=== PATIENT | male | born 1985 | race American Indian/Alaskan Native ===

== ENCOUNTER 2021-03-17 13:28 | Inpatient (IN) | payer SELFPAY ==
[2021-03-17] MEDS ORDERED: ONDANSETRON 4 MG/2 ML INJ IV ONE (14:02)
[2021-03-17] MEDS ORDERED: SODIUM CHLORIDE 0.9% 1000 ML 1,000 ML IV ONE (14:02)
[2021-03-17] MEDS ORDERED: fentaNYL 100 MCG/2 ML INJ IV ONE (14:02)
--- NOTE | 2021-03-17 14:05 | Emergency Department Report ---
ED Abdominal Pain HPI - General Chief Complaint: Abdominal Pain Stated Complaint: ABDOMINAL PAIN Time Seen by Provider: 03/17/21 13:57 Source: patient Mode of arrival: Wheelchair Limitations: No Limitations - History of Present Illness Initial Comments: Patient presents with generalized abdominal pain over the last 2 to 3 days. He has had nausea and vomiting associate with this. There is also been diarrhea. He feels bloated and distended. He states that he feels like his "abdomen is going to explode." He has had this happen once before. He was told it was all related to blockage and gas buildup. He did not require surgery. He is here for evaluation and treatment this time. There has been no sick contact. He has had no travel out of the country. He has not been taking antibiotics. There is no history of trauma. Pain is sharp and stabbing and cramping in nature. It is generalized and diffuse. It does not radiate or migrate. He states it pain is worsened by movement and by palpation. - Related Data Allergies Allergy/AdvReac Type Severity Reaction Status Date / Time No Known Allergies Allergy Unverified 03/17/21 13:47 ED Review of Systems ROS: Stated complaint: ABDOMINAL PAIN Other details as noted in HPI Comment: All other systems reviewed and negative Constitutional: denies: fever Eyes: denies: eye pain ENT: denies: throat pain Respiratory: denies: cough Cardiovascular: denies: chest pain Endocrine: denies: unexplained weight loss Gastrointestinal: as per HPI Genitourinary: denies: dysuria Musculoskeletal: denies: back pain Skin: denies: rash Neurological: denies: headache Hematological/Lymphatic: denies: easy bruising ED Past Medical Hx - Past Medical History Previous Medical History?: No - Surgical History Past Surgical History?: No - Family History Family history: no significant - Social History Smoking Status: Never Smoker ED Physical Exam - General Limitations: No Limitations, Other (Pulse ox noted and normal) General appearance: alert, in distress (Moderate discomfort) - Head Head exam: Present: atraumatic, normocephalic. Absent: normal inspection - Eye Eye exam: Present: normal appearance, EOMI. Absent: scleral icterus - ENT ENT exam: Present: normal exam, normal orophraynx, normal external ear exam - Neck Neck exam: Present: normal inspection. Absent: meningismus - Respiratory Respiratory exam: Present: normal lung sounds bilaterally. Absent: respiratory distress - Cardiovascular Cardiovascular Exam: Present: regular rate, normal rhythm - GI/Abdominal GI/Abdominal exam: Present: soft, distended (Moderate), tenderness (Diffuse), other (No tympany). Absent: guarding, rebound - Extremities Exam Extremities exam: Present: normal capillary refill. Absent: pedal edema - Back Exam Back exam: Absent: CVA tenderness (R), CVA tenderness (L) - Neurological Exam Neurological exam: Present: alert, oriented X3, CN II-XII intact, reflexes normal. Absent: motor sensory deficit - Psychiatric Psychiatric exam: Present: normal affect, normal mood - Skin Skin exam: Present: warm, dry ED Course Vital Signs 03/17/21 15:37 Respiratory 24 Rate O2 Sat by Pulse 96 Oximetry - Reevaluation(s) Reevaluation #1: 03/17/21 14:05 IV labs ordered. X-rays were ordered. Old records reviewed. Reevaluation #2: 03/17/21 14:54 Plain films are noted. CT was ordered. Reevaluation #3: 03/17/21 17:15 CT had been noted and discussed with Dr. Chandler and Dr. Sullivan. Patient was updated. ED Medical Decision Making - Lab Data Result diagrams: 03/17/21 14:09 03/17/21 14:09 Rhythm strip: Normal sinus rhythm without ectopy per monitor observe 10 seconds. - Medical Decision Making Patient presents with abdominal pain and distention. He had plain films suggestive of obstruction. CT confirmed obstruction secondary to what appears to be some sort of abscess. Whether this is been a represents some sort of terminal ileitis, inflammatory bowel disease, or appendicitis is not known. Regardless, he will be admitted. Surgery has been consulted. He is hemodynamically stable at the time. He does have leukocytosis in the setting of infection and antibiotics have been ordered. I believe that this is all related to his abscess. There was no free air or perforation noted. No evidence of AAA. Critical Care Time: No Critical care attestation.: If time is entered above; I have spent that time in minutes in the direct care of this critically ill patient, excluding procedure time. ED Disposition Clinical Impression: SBO (small bowel obstruction) Leukocytosis Qualifiers: Leukocytosis type: unspecified Qualified Code(s): D72.829 - Elevated white blood cell count, unspecified Disposition: 09 ADMITTED INPATIENT Is pt being admited?: Yes Condition: Stable
[2021-03-17 14:35] LABS: Hematocrit 42.8 % (35.5-45.6); Hemoglobin 14.4 gm/dl (11.8-15.2); Mean Corpuscular HGB Conc 34 % (32-34); Mean Corpuscular Volume 98 fl (84-94); Platelet Count 350 K/mm3 (140-440); Red Blood Count 4.39 M/mm3 (3.65-5.03); Red Cell Distribution Width 12.5 % (13.2-15.2)
--- NOTE | 2021-03-17 14:43 | XRay Report ---
ABDOMEN 4 VIEW(S) INDICATION / CLINICAL INFORMATION: pain, distention x 1-14 days. COMPARISON: None available. FINDINGS: TUBES / LINES: None. BOWEL GAS PATTERN: Abnormal dilated gas-filled bowel loops diffusely with a few air-fluid levels. FREE AIR / EXTRALUMINAL GAS: None seen. ADDITIONAL FINDINGS: Clear lungs with normal heart size. IMPRESSION: 1. Findings most suggestive of a distal small bowel obstruction. Signer Name: Krystian Velásquez MD Signed: 03/17/2021 2:39 PM Workstation Name: [email or web address]
[2021-03-17 14:53] LABS: BUN/Creatinine Ratio 15; Blood Urea Nitrogen 15 mg/dL (9-20); Calcium 9.6 mg/dL (8.4-10.2); Hemolysis Index 33
[2021-03-17] MEDS ORDERED: MORPHINE 4 MG/1 ML INJ IV ONE (15:53)
--- NOTE | 2021-03-17 16:01 | Cat Scan Report ---
CT ABDOMEN AND PELVIS WITH CONTRAST INDICATION / CLINICAL INFORMATION: sbo. TECHNIQUE: Axial CT images were obtained through the abdomen and pelvis after IV contrast. All CT sc ans at this location are performed using CT dose reduction for ALARA by means of automated exposure c ontrol. COMPARISON: None available. FINDINGS: LOWER CHEST: There is minimal subsegmental atelectasis in the lung bases. LIVER: No significant abnormality. GALLBLADDER: Gallbladder is contracted but otherwise unremarkable. BILE DUCTS: No significant abnormality. PANCREAS: No significant abnormality. SPLEEN: No significant abnormality. ADRENALS: No significant abnormality. RIGHT KIDNEY / URETER: No significant abnormality. LEFT KIDNEY / URETER: No significant abnormality. STOMACH / SMALL BOWEL: There is a high-grade mechanical small bowel obstruction at the level the dist al ileum. The wall of the distal ileum is thickened. COLON: No significant abnormality. APPENDIX: Not visualized. PERITONEUM: No free fluid. No free air. There is a fluid collection with air-fluid level in the pelvi s anterior to the rectum and posterior to the urinary bladder measures approximately 7 cm in diameter . LYMPH NODES: No significant adenopathy. AORTA / ARTERIES: No significant abnormality. IVC / VEINS: No significant abnormality. URINARY BLADDER: No significant abnormality. REPRODUCTIVE ORGANS: No significant abnormality. ADDITIONAL FINDINGS: None. SKELETAL SYSTEM: No acute abnormality IMPRESSION: 1. There is a high-grade mechanical small bowel obstruction at the level the distal ileum. There is a n inflammatory process in the pelvis with some wall thickening in the distal ileum. There is an absce ss anterior to the rectum and posterior to the urinary bladder within the pelvis which measures appro ximately 7 cm. The source of this inflammatory process in the pelvis could be small bowel abnormality such as perforation related to inflammatory bowel disease. The possibility that this is caused by ap pendicitis is considered. I am unable to identify the appendix on this study. The possibility of Meck el's diverticulitis is also considered in the differential diagnosis. Signer Name: Miguel Cancino MD Signed: 03/17/2021 3:56 PM Workstation Name: [id number]
[2021-03-17 16:05] LABS: Alanine Aminotransferase 32 units/L (7-56); Albumin 3.9 g/dL (3.9-5)
[2021-03-17] MEDS ORDERED: LIDOCAINE JELLY (2%) 5 ML TOPICAL TP NR (16:31)
[2021-03-17] MEDS ORDERED: PIPERACIL/TAZOBACTA 4.5/NS 100 4.5 GM/100 ML VIAL IV ONE (16:31)
[2021-03-17] MEDS ORDERED: BENZOCAINE 20% TOP SPRAY 0.5 ML UNIT DOSE MM NR (17:00)
--- NOTE | 2021-03-17 18:50 | Consultation ---
History of Present Illness Consult date: 03/17/21 Reason for consult: abdominal pain - History of present illness History of present illness: 35 yo male with 3 days of diffuse abdominal pain, nausea and vomiting. No h/o prior surgery or hernia. Medications and Allergies Allergies Allergy/AdvReac Type Severity Reaction Status Date / Time No Known Allergies Allergy Unverified 03/17/21 13:47 Home Medications Medication Instructions Recorded Confirmed Last Taken Type No Known Home Medications [No 03/18/21 03/18/21 Unknown History Reported Home Medications] Active Meds: Active Medications Benzocaine (Benzocaine 20% Top [place] 0.5 Ml Unit Dose) 1 spray MM PREOP NR Stop: 03/17/21 20:00 Lidocaine HCl (Lidocaine Jelly (2%) 5 Ml Topical) 1 applic TP ONCE NR Stop: 03/17/21 20:00 Review of Systems All systems: negative (none.) Exam Vital Signs Resp Pulse Ox 24 96 03/17/21 15:37 03/17/21 15:37 - General physical appearance Positive: well developed, well nourished, no distress - Eyes Positive: PERRL, normal occular movement - ENT Positive: normal pinna, normal nares, normal mucosa, no hearing loss, no congestion - Neck Positive: no masses, no bruits, trachea midline, no venous distension - Respiratory Positive: normal expansion, normal respiratory effort, clear to auscultation - Cardiovascular Rhythm: regular Heart Sounds: Present: S1 & S2. Absent: rub, click - Extremities Extremities: no ischemia, pulses symmetrical, No edema - Breasts Breasts: normal, no mass, no skin changes - Abdomen Abdomen: Present: tender, bowel sounds hypoactive, distended. Absent: masses (Mild tenderness noted diffusely.), rebound, guarding, rigid, wound, surgical scars Hernia: none - Genitourinary Male Genitourinary: normal Female Genitourinary: normal - Integumentary no rash, no growths, no abnormal pigmentation - Neurologic Neurologic: alert and oriented to time, place and person, motor strength and sensation are grossly intact - Musculoskeletal normal gait, normal posture - Psychiatric Psychiatric: appropriate mood/affect, intact judgment & insight Results - Labs 03/18/21 04:45 03/18/21 04:45 Abnormal lab results 03/17/21 03/17/21 Range/Units 14:09 14:09 WBC 17.9 H (4.5-11.0) K/mm3 MCV 98 H (84-94) fl MCH 33 H (28-32) pg RDW 12.5 L (13.2-15.2) % Sodium 128 L (137-145) mmol/L Chloride 81.8 L (98-107) mmol/L Carbon Dioxide 34 H (22-30) mmol/L Glucose 119 H (75-100) mg/dL Lipase 262 H (13-60) units/L Diabetes panel 03/17/21 Range/Units 14:09 Sodium 128 L (137-145) mmol/L Potassium 3.6 (3.6-5.0) mmol/L Chloride 81.8 L (98-107) mmol/L Carbon Dioxide 34 H (22-30) mmol/L BUN 15 (9-20) mg/dL Creatinine 1.0 (0.8-1.3) mg/dL Glucose 119 H (75-100) mg/dL Calcium 9.6 (8.4-10.2) mg/dL AST 36 (5-40) units/L ALT 32 (7-56) units/L Alkaline Phosphatase 93 (35-129) units/L Total Protein 8.1 (6.3-8.2) g/dL Albumin 3.9 (3.9-5) g/dL Calcium panel 03/17/21 Range/Units 14:09 Calcium 9.6 (8.4-10.2) mg/dL Albumin 3.9 (3.9-5) g/dL Pituitary panel 03/17/21 Range/Units 14:09 Sodium 128 L (137-145) mmol/L Potassium 3.6 (3.6-5.0) mmol/L Chloride 81.8 L (98-107) mmol/L Carbon Dioxide 34 H (22-30) mmol/L BUN 15 (9-20) mg/dL Creatinine 1.0 (0.8-1.3) mg/dL Glucose 119 H (75-100) mg/dL Calcium 9.6 (8.4-10.2) mg/dL Adrenal panel 03/17/21 Range/Units 14:09 Sodium 128 L (137-145) mmol/L Potassium 3.6 (3.6-5.0) mmol/L Chloride 81.8 L (98-107) mmol/L Carbon Dioxide 34 H (22-30) mmol/L BUN 15 (9-20) mg/dL Creatinine 1.0 (0.8-1.3) mg/dL Glucose 119 H (75-100) mg/dL Calcium 9.6 (8.4-10.2) mg/dL Total Bilirubin 0.50 (0.1-1.2) mg/dL AST 36 (5-40) units/L ALT 32 (7-56) units/L Alkaline Phosphatase 93 (35-129) units/L Total Protein 8.1 (6.3-8.2) g/dL Albumin 3.9 (3.9-5) g/dL - Imaging CT scan - abdomen: report reviewed CT scan - pelvis: report reviewed Assessment and Plan - Patient Problems (1) SBO (small bowel obstruction) Current Visit: Yes Status: Acute Plan to address problem: 1) IV antibiotics 2) NG to LIS 3) NPO 4) IVF 5) Exploratory laparotomy, drainage of pelvic abscess and indicated surgery tomorrow.
--- NOTE | 2021-03-17 18:55 | XRay Report ---
Abdomen single view INDICATION: Abdominal pain IMPRESSION: The esophagogastric tube terminates within the upper stomach region. Multiple dilated loo ps of small bowel identified throughout the abdomen concerning for high-grade distal small bowel obst ruction. Signer Name: Ortiz Moncada MD Signed: 03/17/2021 6:51 PM Workstation Name: [email or web address]
[2021-03-17] MEDS: HYDROmorphone 1 MG/1 ML INJ IV PRN ×2 (19:36→21:31)
[2021-03-17] MEDS ORDERED: LIDOCAINE (4%) 40 MG/ML TOPICAL SOLN 50 ML BOTTLE TP ONE (19:46)
[2021-03-17] MEDS ORDERED: ONDANSETRON 4 MG/2 ML INJ IV PRN (22:41)
[2021-03-17] MEDS ORDERED: ACETAMINOPHEN 650 MG RECT SUPP PR PRN (22:41)
[2021-03-18] MEDS: HYDROmorphone 1 MG/1 ML INJ IV PRN ×7 (00:03→18:24)
[2021-03-18] MEDS: FAMOTIDINE 20 MG/2 ML INJ IV SCH ×2 (00:05→14:32)
[2021-03-18 05:12] LABS: Basophils % (Auto) 0.1 % (0.0-1.8); Eosinophils # (Auto) 0.2 K/mm3 (0.0-0.4); Eosinophils % (Auto) 0.9 % (0.0-4.3); Hematocrit 41.1 % (35.5-45.6); Hemoglobin 13.6 gm/dl (11.8-15.2); Lymphocytes % (Auto) 6.4 % (13.4-35.0); Mean Corpuscular HGB Conc 33 % (32-34); Mean Corpuscular Volume 100 fl (84-94); Monocytes # (Auto) 1.5 K/mm3 (0.0-0.8); Monocytes % (Auto) 9.4 % (0.0-7.3); Platelet Count 367 K/mm3 (140-440); Red Blood Count 4.13 M/mm3 (3.65-5.03); Red Cell Distribution Width 12.7 % (13.2-15.2)
[2021-03-18 05:33] LABS: Alanine Aminotransferase 41 units/L (7-56); Albumin 3.3 g/dL (3.9-5); BUN/Creatinine Ratio 12; Blood Urea Nitrogen 13 mg/dL (9-20); Calcium 9.5 mg/dL (8.4-10.2); Hemolysis Index 6
[2021-03-18] MEDS ORDERED: chlorproMAZINE 25 MG in SODIUM CHLORIDE 0.9% 50 ML IV ONE (06:40)
--- NOTE | 2021-03-18 07:00 | History and Physical Report ---
History of Present Illness Date of examination: 03/17/21 Date of admission: 03/17/21 14:57 Chief complaint: Abdominal pain distention and vomiting for 3 days History of present illness: 35-year-old male with no significant past medical history comes in for abdominal pain of 3 days duration. Persistent nausea and vomiting for the last 3 days. Patient also had couple of loose bowel movements. Patient feels that his abdomen is going to explode. Abdomen is distended. Pain is about scale of 1- 10. Patient states that he did not have any surgeries in the past. Food and liquids is an exacerbating factor. Pain is sharp and 10 on a scale of 1-10. Patient endorses because of the pain. - Past Medical History Previous Medical History?: No - Surgical History Past Surgical History?: No - Family History Family history: no significant - Social History Smoking Status: Never Smoker Review of Systems ROS: Stated complaint: ABDOMINAL PAIN Other details as noted in HPI Comment: All other systems reviewed and negative Constitutional: denies: fever Eyes: denies: eye pain ENT: denies: throat pain Respiratory: denies: cough Cardiovascular: denies: chest pain Endocrine: denies: unexplained weight loss Gastrointestinal: as per HPI Genitourinary: denies: dysuria Musculoskeletal: denies: back pain Skin: denies: rash Neurological: denies: headache Hematological/Lymphatic: denies: easy bruising Medications and Allergies Allergies Allergy/AdvReac Type Severity Reaction Status Date / Time No Known Allergies Allergy Unverified 03/17/21 13:47 Active Meds: Active Medications Acetaminophen (Acetaminophen 325 Mg Tab) 650 mg PO Q4H PRN PRN Reason: Pain MILD(1-3)/Fever >100.5/CHRISTIANSEN Acetaminophen (Acetaminophen 650 Mg Rect Supp) 650 mg MT Q4H PRN PRN Reason: Pain MILD(1-3)/Fever >100.5/CHRISTIANSEN Famotidine (Famotidine 20 Mg/2 Ml Inj) 20 mg IV BID [facility] Last Admin: 03/18/21 00:05 Dose: 20 mg Documented by: Heparin Sodium (Porcine) (Heparin 5,000 Unit/1 Ml Vial) 5,000 unit SUB-Q Q12HR PRASHANT Hydromorphone HCl (Hydromorphone 1 Mg/1 Ml Inj) 1 mg IV Q2H PRN PRN Reason: Pain , Severe (7-10) Last Admin: 03/18/21 06:23 Dose: 1 mg Documented by: Hydromorphone HCl (Hydromorphone 1 Mg/1 Ml Inj) 0.5 mg IV Q3H PRN PRN Reason: Pain , Severe (7-10) Dextrose/Sodium Chloride (D5ns) 1,000 mls @ 125 mls/hr IV DIRECT PRASHANT Ceftriaxone Sodium (Rocephin/Ns 2 Gm/100 Ml) 2 gm in 100 mls @ 200 mls/hr IV Q24HR PRASHANT; Protocol Chlorpromazine HCl 25 mg/ (Sodium Chloride) 51 mls @ 100 mls/hr IV ONCE ONE Stop: 03/18/21 07:10 Last Admin: 03/18/21 06:18 Dose: 100 mls/hr Documented by: Metoclopramide HCl (Metoclopramide 10 Mg/2 Ml Inj) 10 mg IV Q6H PRN PRN Reason: Nausea And Vomiting Morphine Sulfate (Morphine 2 Mg/1 Ml Inj) 2 mg IV Q4H PRN PRN Reason: Pain, Moderate (4-6) Ondansetron HCl (Ondansetron 4 Mg/2 Ml Inj) 4 mg IV Q8H PRN PRN Reason: Nausea And Vomiting Sodium Chloride (Sodium Chloride 0.9% 10 Ml Flush Syringe) 10 ml IV PRN PRN PRN Reason: LINE FLUSH Sodium Chloride (Sodium Chloride 0.9% 10 Ml Flush Syringe) 10 ml IV BID [facility] Exam - Constitutional Vitals: Temp Pulse Resp BP Pulse Ox 98.9 F 122 H 12 144/106 95 03/17/21 19:55 03/18/21 06:45 03/18/21 06:45 03/18/21 06:45 03/18/21 06:45 General appearance: Present: severe distress, well-nourished - EENT Eyes: Present: PERRL ENT: hearing intact, clear oral mucosa - Neck Neck: Present: supple, normal ROM - Respiratory Respiratory effort: normal Respiratory: bilateral: CTA - Cardiovascular Heart rate: 98 Rhythm: regular Heart Sounds: Present: S1 & S2. Absent: rub, click - Extremities Extremities: pulses symmetrical, No edema Peripheral Pulses: within normal limits - Abdominal General gastrointestinal: Present: soft, tender, distended, hypoactive bowel sounds Localized gastrointestinal: tender: diffuse, guarding: diffuse, rebound: diffuse Male genitourinary: Present: normal - Integumentary Integumentary: Present: clear, warm, dry - Musculoskeletal Musculoskeletal: gait normal, strength equal bilaterally - Psychiatric Psychiatric: appropriate mood/affect, intact judgment & insight - Neurologic Neurologic: CNII-XII intact, moves all extremities - Allied Health Allied health notes reviewed: nursing, case management Results - Labs CBC & Chem 7: 03/18/21 04:45 03/18/21 04:45 Labs: Laboratory Last Values WBC 16.5 K/mm3 (4.5-11.0) H 03/18/21 04:45 RBC 4.13 M/mm3 (3.65-5.03) 03/18/21 04:45 Hgb 13.6 gm/dl (11.8-15.2) 03/18/21 04:45 Hct 41.1 % (35.5-45.6) 03/18/21 04:45 MCV 100 fl (84-94) H 03/18/21 04:45 MCH 33 pg (28-32) H 03/18/21 04:45 MCHC 33 % (32-34) 03/18/21 04:45 RDW 12.7 % (13.2-15.2) L 03/18/21 04:45 Plt Count 367 K/mm3 (140-440) 03/18/21 04:45 Lymph % (Auto) 6.4 % (13.4-35.0) L 03/18/21 04:45 Tripp % (Auto) 9.4 % (0.0-7.3) H 03/18/21 04:45 Eos % (Auto) 0.9 % (0.0-4.3) 03/18/21 04:45 Baso % (Auto) 0.1 % (0.0-1.8) 03/18/21 04:45 Lymph # (Auto) 1.0 K/mm3 (1.2-5.4) L 03/18/21 04:45 Tripp # (Auto) 1.5 K/mm3 (0.0-0.8) H 03/18/21 04:45 Eos # (Auto) 0.2 K/mm3 (0.0-0.4) 03/18/21 04:45 Baso # (Auto) 0.0 K/mm3 (0.0-0.1) 03/18/21 04:45 Seg Neutrophils % 83.2 % (40.0-70.0) H 03/18/21 04:45 Seg Neutrophils # 13.8 K/mm3 (1.8-7.7) H 03/18/21 04:45 Sodium 130 mmol/L (137-145) L 03/18/21 04:45 Potassium 3.7 mmol/L (3.6-5.0) 03/18/21 04:45 Chloride 83.2 mmol/L (98-107) L 03/18/21 04:45 Carbon Dioxide 32 mmol/L (22-30) H 03/18/21 04:45 Anion Gap 19 mmol/L 03/18/21 04:45 BUN 13 mg/dL (9-20) 03/18/21 04:45 Creatinine 1.1 mg/dL (0.8-1.3) 03/18/21 04:45 Estimated GFR > 60 ml/min 03/18/21 04:45 BUN/Creatinine Ratio 12 % 03/18/21 04:45 Glucose 97 mg/dL (75-100) 03/18/21 04:45 Calcium 9.5 mg/dL (8.4-10.2) 03/18/21 04:45 Total Bilirubin 0.50 mg/dL (0.1-1.2) 03/18/21 04:45 AST 37 units/L (5-40) 03/18/21 04:45 ALT 41 units/L (7-56) 03/18/21 04:45 Alkaline Phosphatase 89 units/L (35-129) 03/18/21 04:45 Total Protein 7.1 g/dL (6.3-8.2) 03/18/21 04:45 Albumin 3.3 g/dL (3.9-5) L 03/18/21 04:45 Albumin/Globulin Ratio 0.9 % 03/18/21 04:45 Lipase 262 units/L (13-60) H 03/17/21 14:09 Short CBC 03/17/21 03/18/21 Range/Units 14:09 04:45 WBC 17.9 H 16.5 H (4.5-11.0) K/mm3 Hgb 14.4 13.6 (11.8-15.2) gm/dl Hct 42.8 41.1 (35.5-45.6) % Plt Count 350 367 (140-440) K/mm3 BMP 03/17/21 03/18/21 14:09 04:45 Sodium 128 L 130 L Potassium 3.6 3.7 Chloride 81.8 L 83.2 L Carbon Dioxide 34 H 32 H BUN 15 13 Creatinine 1.0 1.1 Glucose 119 H 97 Calcium 9.6 9.5 Liver Function 03/17/21 03/18/21 Range/Units 14:09 04:45 Total Bilirubin 0.50 0.50 (0.1-1.2) mg/dL AST 36 37 (5-40) units/L ALT 32 41 (7-56) units/L Alkaline Phosphatase 93 89 (35-129) units/L Albumin 3.9 3.3 L (3.9-5) g/dL - Imaging and Cardiology Abdominal x-ray: report reviewed CT scan - abdomen: report reviewed Imaging and Cardiology: CT abdomen/pelvis High-grade mechanical small bowel obstruction at the level of the distal ileum. There is an inflammatory process in the pelvis with some wall thickening in the distal ileum. There is abscess anterior to the rectum and posterior to the urinary bladder within the pelvis which measures approximately 7 cm. It is also present over the process of the pelvis could be small bowel abnormalities such as perforation related to the inflammatory bowel disease. The possibility that this is caused by appendicitis is considered. I am unable to identify the appendix on the study. The possibility of Meckel's diverticulitis status is also considered in the differential diagnosis. Abdominal x-ray Esophagogastric tube terminates within the upper region Multiple dilated loops of small bowel identified throughout the abdomen concerning for high-grade distal small bowel obstruction Assessment and Plan Advance Directives: Yes (Full code) VTE prophylaxis?: Chemical Plan of care discussed with patient/family: Yes - Patient Problems (1) SIRS (systemic inflammatory response syndrome) Current Visit: Yes Status: Acute Plan to address problem: Patient has leukocytosis and clinical picture consistent with systemic inflammatory response syndrome No sepsis at this point (2) SBO (small bowel obstruction) Current Visit: Yes Status: Acute Plan to address problem: NG tube to low Gomco suction. Possible causes inflammatory disease and pelvic abscess . Broad-spectrum IV antibiotics initiated. (3) Inflammatory bowel disease Current Visit: Yes Status: Acute Plan to address problem: May have ulcerative colitis/Crohn's disease Will defer to GI for further recommendations (4) Pelvic abscess in male Current Visit: Yes Status: Acute Plan to address problem: Possible perforation and pelvic abscess Perforation of appendix in the differential diagnosis IV Zosyn and IV vancomycin (5) DVT prophylaxis Current Visit: Yes Status: Acute Plan to address problem: On SCDs and GI prophylaxis (6) Hyponatremia Current Visit: Yes Status: Acute Plan to address problem: IV normal saline for now
[2021-03-18] MEDS ORDERED: PIPERACIL/TAZOBACTA 4.5/NS 100 4.5 GM/100 ML VIAL IV SCH (08:00)
[2021-03-18] MEDS ORDERED: metroNIDAZOLE/NS 500 MG/100 ML 500 MG/100 ML BAG IV SCH (08:00)
[2021-03-18] MEDS: PIPERACIL/TAZOBACTA 4.5/NS 100 4.5 GM/100 ML VIAL IV SCH ×2 (08:18→18:31)
[2021-03-18] MEDS ORDERED: cefTRIAXone/NS 2 GM/100 ML 2 GM/100 ML BAG IV SCH (10:00)
[2021-03-18] MEDS: HEPARIN 5,000 UNIT/1 ML VIAL SUB-Q SCH (10:15)
--- NOTE | 2021-03-18 11:13 | Anesthesia Consultation ---
Anesthesia Consult and Med Hx Date of service: 03/18/21 - Airway Anesthetic Teeth Evaluation: Good ROM Head & Neck: Adequate Mental/Hyoid Distance: Adequate Mallampati Class: Class II Intubation Access Assessment: Probably Good - Pre-Operative Health Status ASA Pre-Surgery Classification: ASA2 Proposed Anesthetic Plan: General - Pulmonary Hx Smoking: Yes (Vapes, former heavy smoker, quit earlier in 2020.) - Other Systems Hx Substance Use: Yes (medical marijuana, none recently) - Additional Comments Anesthesia Medical History Comments: bowel obstruction?
--- NOTE | 2021-03-18 11:13 | Anesthesia Day of Surgery ---
Anesthesia Day of Surgery - Day of Surgery Patient Examined: Yes Patient H&P Reviewed: Yes Patient is NPO: Yes
[2021-03-18] MEDS: D5W/0.9% NACL 1,000 ML IV SCH (12:10)
[2021-03-18] MEDS: ONDANSETRON 4 MG/2 ML INJ IV PRN (16:30)
[2021-03-18 17:37] LABS: Bilirubin,Urine NEG (Negative); Blood,Urine NEG (Negative); Color,Urine Yellow (Yellow); Mucus,Urine FEW /HPF
--- NOTE | 2021-03-18 18:05 | Progress Note ---
Assessment and Plan Assessment and plan: High-grade severe small bowel obstruction Patient had the first episode about 3 months ago Patient did not seek medical attention, symptoms resolved after 4 days No known past medical or surgical history Leukocytosis with a low-grade fever Hyponatremia likely from vomiting Sinus tachycardia, reactive/physiologic response Plan: Scheduled for surgery today Continue Zosyn empirically Continue IV fluids aggressively Continue NG suction Monitor WBC, electrolytes and renal function Pain medication and antiemetic as needed. Discussed with the patient, nursing staff and the general surgeon History Interval history: Patient reports some relief of abdominal pain with the NG suction. No nausea now. Last BM was yesterday morning. Abdomen is still distended and tense. Afebrile. Scheduled for surgery today. Hospitalist Physical - Constitutional Vitals: Temp Pulse Resp BP Pulse Ox 98.8 F 115 H 18 147/103 97 03/18/21 12:14 03/18/21 12:14 03/18/21 12:14 03/18/21 12:14 03/18/21 12:14 General appearance: Present: no acute distress - EENT Eyes: Present: PERRL, EOM intact ENT: clear oral mucosa - Neck Neck: Present: supple - Respiratory Respiratory effort: normal Respiratory: bilateral: CTA - Cardiovascular Rhythm: regular - Extremities Extremities: No edema - Abdominal General gastrointestinal: other (Abdomen severely distended, firm with ill- defined tenderness. Bowel sounds absent. NG suction on.) - Integumentary Integumentary: Absent: jaundice, rash - Psychiatric Psychiatric: appropriate mood/affect - Neurologic Neurologic: no focal deficits Results - Labs CBC & Chem 7: 03/18/21 04:45 03/18/21 04:45 Labs: Laboratory Last Values WBC 16.5 K/mm3 (4.5-11.0) H 03/18/21 04:45 RBC 4.13 M/mm3 (3.65-5.03) 03/18/21 04:45 Hgb 13.6 gm/dl (11.8-15.2) 03/18/21 04:45 Hct 41.1 % (35.5-45.6) 03/18/21 04:45 MCV 100 fl (84-94) H 03/18/21 04:45 MCH 33 pg (28-32) H 03/18/21 04:45 MCHC 33 % (32-34) 03/18/21 04:45 RDW 12.7 % (13.2-15.2) L 03/18/21 04:45 Plt Count 367 K/mm3 (140-440) 03/18/21 04:45 Lymph % (Auto) 6.4 % (13.4-35.0) L 03/18/21 04:45 [place] % (Auto) 9.4 % (0.0-7.3) H 03/18/21 04:45 Eos % (Auto) 0.9 % (0.0-4.3) 03/18/21 04:45 Baso % (Auto) 0.1 % (0.0-1.8) 03/18/21 04:45 Lymph # (Auto) 1.0 K/mm3 (1.2-5.4) L 03/18/21 04:45 [place] # (Auto) 1.5 K/mm3 (0.0-0.8) H 03/18/21 04:45 Eos # (Auto) 0.2 K/mm3 (0.0-0.4) 03/18/21 04:45 Baso # (Auto) 0.0 K/mm3 (0.0-0.1) 03/18/21 04:45 Seg Neutrophils % 83.2 % (40.0-70.0) H 03/18/21 04:45 Seg Neutrophils # 13.8 K/mm3 (1.8-7.7) H 03/18/21 04:45 Sodium 130 mmol/L (137-145) L 03/18/21 04:45 Potassium 3.7 mmol/L (3.6-5.0) 03/18/21 04:45 Chloride 83.2 mmol/L (98-107) L 03/18/21 04:45 Carbon Dioxide 32 mmol/L (22-30) H 03/18/21 04:45 Anion Gap 19 mmol/L 03/18/21 04:45 BUN 13 mg/dL (9-20) 03/18/21 04:45 Creatinine 1.1 mg/dL (0.8-1.3) 03/18/21 04:45 Estimated GFR > 60 ml/min 03/18/21 04:45 BUN/Creatinine Ratio 12 % 03/18/21 04:45 Glucose 97 mg/dL (75-100) 03/18/21 04:45 Calcium 9.5 mg/dL (8.4-10.2) 03/18/21 04:45 Total Bilirubin 0.50 mg/dL (0.1-1.2) 03/18/21 04:45 AST 37 units/L (5-40) 03/18/21 04:45 ALT 41 units/L (7-56) 03/18/21 04:45 Alkaline Phosphatase 89 units/L (35-129) 03/18/21 04:45 Total Protein 7.1 g/dL (6.3-8.2) 03/18/21 04:45 Albumin 3.3 g/dL (3.9-5) L 03/18/21 04:45 Albumin/Globulin Ratio 0.9 % 03/18/21 04:45 Lipase 262 units/L (13-60) H 03/17/21 14:09 Urine Color Yellow (Yellow) 03/18/21 Unknown Urine Turbidity Clear (Clear) 03/18/21 Unknown Urine pH 5.0 (5.0-7.0) 03/18/21 Unknown Ur Specific [place] 1.019 (1.003-1.030) 03/18/21 Unknown Urine Protein 30 mg/dl mg/dL (Negative) 03/18/21 Unknown Urine Glucose (UA) Neg mg/dL (Negative) 03/18/21 Unknown Urine Ketones 20 mg/dL (Negative) 03/18/21 Unknown Urine Blood Neg (Negative) 03/18/21 Unknown Urine Nitrite Neg (Negative) 03/18/21 Unknown Urine Bilirubin Neg (Negative) 03/18/21 Unknown Urine Urobilinogen 2.0 mg/dL (<2.0) 03/18/21 Unknown Ur Leukocyte Esterase Neg (Negative) 03/18/21 Unknown Urine WBC (Auto) 3.0 /HPF (0.0-6.0) 03/18/21 Unknown Urine RBC (Auto) 2.0 /HPF (0.0-6.0) 03/18/21 Unknown Urine Mucus Few /HPF 03/18/21 Unknown Microbiology: Microbiology 03/18/21 10:37 Peripheral/Venous Blood Culture - Preliminary Culture in Progress 03/18/21 10:37 Peripheral/Venous Blood Culture - Preliminary Culture in Progress Active Medications - Current Medications Current Medications: Generic Name Dose Route Start Last Admin Trade Name Freq PRN Reason Stop Dose Admin Acetaminophen 650 mg 03/17/21 22:33 Acetaminophen 325 Mg Tab PO Q4H PRN Pain MILD(1-3)/Fever >100.5/CHRISTIANSEN Acetaminophen 650 mg 03/17/21 22:41 Acetaminophen 650 Mg Rect Supp OR Q4H PRN Pain MILD(1-3)/Fever >100.5/CHRISTIANSEN Famotidine 20 mg 03/17/21 23:00 03/18/21 14:32 Famotidine 20 Mg/2 Ml Inj IV 20 mg BID PRASHANT Administration Heparin Sodium (Porcine) 5,000 unit 03/18/21 10:00 03/18/21 10:15 Heparin 5,000 Unit/1 Ml Vial SUB-Q Not Given Q12HR [facility] Hydromorphone HCl 1 mg 03/17/21 19:31 03/18/21 14:57 Hydromorphone 1 Mg/1 Ml Inj IV 1 mg Q2H PRN Administration Pain , Severe (7-10) Hydromorphone HCl 0.5 mg 03/17/21 22:41 Hydromorphone 1 Mg/1 Ml Inj IV Q3H PRN Pain , Severe (7-10) Dextrose/Sodium Chloride 1,000 mls @ 125 mls/hr 03/17/21 23:00 03/18/21 12:10 D5ns IV 125 mls/hr DIRECT [facility] Administration Piperacillin Sod/Tazobactam Sod 4.5 gm in 100 mls @ 200 mls/hr 03/18/21 08:00 03/18/21 08:18 Zosyn/Ns 4.5gm/100ml IV Not Given Q8H [facility] Protocol Metoclopramide HCl 10 mg 03/17/21 22:33 Metoclopramide 10 Mg/2 Ml Inj IV Q6H PRN Nausea And Vomiting Morphine Sulfate 2 mg 03/17/21 22:41 Morphine 2 Mg/1 Ml Inj IV Q4H PRN Pain, Moderate (4-6) Ondansetron HCl 4 mg 03/17/21 22:33 03/18/21 16:30 Ondansetron 4 Mg/2 Ml Inj IV 4 mg Q8H PRN Administration Nausea And Vomiting Sodium Chloride 10 ml 03/17/21 22:33 Sodium Chloride 0.9% 10 Ml Flush Syringe IV PRN PRN LINE FLUSH Sodium Chloride 10 ml 03/18/21 10:00 03/18/21 14:33 Sodium Chloride 0.9% 10 Ml Flush Syringe IV 10 ml BID PRASHANT Administration
[2021-03-18] MEDS ORDERED: propofoL 200 MG/20 ML VIAL IV ONE (20:26)
[2021-03-18] MEDS ORDERED: fentaNYL 100 MCG/2 ML INJ ONE ×2 (20:26→21:04)
[2021-03-18] MEDS ORDERED: MIDAZOLAM 2 MG/2 ML INJ ONE (20:27)
[2021-03-18] MEDS ORDERED: LIDOCAINE MPF (2%) 20 MG/1 ML VIAL 5 ML ONE (21:04)
[2021-03-18] MEDS ORDERED: HYDROmorphone 1 MG/1 ML INJ ONE (21:45)
[2021-03-18] MEDS ORDERED: ROCURONIUM 50 MG/5 ML INJ IV ONE (22:13)
[2021-03-18] MEDS ORDERED: LACTATED RINGERS 1,000 ML ONE ×3 (22:51→22:55)
[2021-03-18] MEDS ORDERED: PHENYLEPHRINE/NS 1,000 MCG/10 ML SYRINGE (OR USE) IV ONE (23:00)
[2021-03-19] MEDS ORDERED: SUGAMMADEX SODIUM 200 MG/2 ML VIAL IV ONE (00:02)
[2021-03-19] MEDS ORDERED: SODIUM CHLORIDE 0.9% IRR 1,500 ML BOTTLE IR ONE (00:05)
--- NOTE | 2021-03-19 00:16 | Procedure Note ---
Date of procedure: 03/18/21 Pre-op diagnosis: SBO with pelvic abscess Post-op diagnosis: same (Secondary to probable ruptured appendicitis with sbo 2/2 inflammatory adhesions) Procedure: 1) Right colectomy with ileocolonic anastomosis 2) Drainage of pelvic abscess 3) Placement of left subclavian CVL Description of procedure: Pt was placed supine on the OR table. GETA was administered. Abdomen was prepped and draped. Peritoneal cavity was entered via a long midline incision. The omentum and small bowel were moderately adherent to each other and these adhesions were taken down with careful digital dissection until almost all of the small bowel was freed up. However, several loops of small bowel were densely adherent to the deep pelvis posterior to the bladder and anterior to the rectum. Continued digital dissection resulted in entry of the CT noted pelvic abscess. The abscess purulence was collected for C&S. With slow digital dissection, I was eventually able to deliver the pelvic small bowel out of the pelvis. This small bowel was markedly inflamed and edematous and there were several seromuscular tears in the bowel from the digital dissection. The appendix was difficult to identify, even with mobilization of the right colon medially. What appeared to be the appendix was wholly gangrenous and disintegrating. I decided the best course of action was a right colectomy as the base of the cecum also appeared non-viable/markedly inflamed. The ileum was divided with a LUIS stapler proximal to the above noted seromuscular tears. The proximal transverse colon was divided with a 2nd LUIS stapler. The small bowel and colonic mesentery were divided with an Endoseal device with the exception of the right colic vessels which were clamped, divided and suture ligated with 2-0 silk. Specimen was passed of the table. A side to side stapled ileo-colonic anastomosis was then created. The residual enterotomy was closed with a TA stapler. The adjacent mesenteric defect was closed with a running 2-0 silk. Peritoneal cavity was irrigated with 3 liters of warm saline. A stab wound was created in the RLQ and a 10 mm flat BETH drain passed through the stab wound. The drain was then positioned in the deep pelvis at the location of the previous abscess. The drain was secured to the skin with a suture of 2-0 Nylon. Midline fascia was approximated with a running, looped #1 PDS. The SQ tissue was packed open with a dilute Betadine moistened Kerlix rol l. Dry 4 X 4's were then placed over the incision and were secured with Medipore tape. A slitted 4 X 4 was also placed about the RLQ drain exit site. Dr. Valencia then asked if I could try to place a CVL as his attempts had been unsuccessful. Initially a left IJ approach was attempted but this was unsuccessful. I then placed a left subclavian CVL on my first needle approach. This was secured to the skin with 2-0 silk and covered with a sterile Tegaderm. Pt tolerated the above procedure well. He was extubated in the OR and was taken to PACU in stable condition. Anesthesia: GETA Surgeon: CHAKA COLON Estimated blood loss: other (500 ml) Pathology: none (1) TI and right colon 2) C&S of pelvic abscess) Specimen disposition: to lab Condition: stable Disposition: PACU
[2021-03-19] MEDS: HYDROmorphone 1 MG/1 ML INJ IV PRN ×8 (00:30→22:54)
[2021-03-19] MEDS ORDERED: LIDOCAINE (2%) 20 MG/1 ML VIAL 20 ML MDV INFILTRATI ONE (00:39)
--- NOTE | 2021-03-19 00:41 | XRay Report ---
CHEST 1 VIEW INDICATION: CVL placement. COMPARISON: 2 days prior FINDINGS: Support devices: New left subclavian catheter tip projects over the SVC. NG tube tip is in the stomac h with side-port in the distal esophagus. Heart: Stable. Lungs/Pleura: There is a new large left pneumothorax. Lungs are clear. No pleural abnormality. IMPRESSION: 1. Large left pneumothorax after line placement. 2. NG tube side-port is in the distal esophagus and needs to be advanced. CRITICAL RESULT: Time of Discovery (RESEARCH DEVELOPMENT DIRECTOR/CDT): 11:33 PM Time of Communication (RESEARCH DEVELOPMENT DIRECTOR/CDT): 11:35 PM Licensed Practitioner Receiving Report: Jaqueline Vasquez nurse Read-Back Performed: Yes. Signer Name: Victor Manuel Ren MD Signed: 03/19/2021 12:36 AM Workstation Name: [id number]
[2021-03-19] MEDS ORDERED: LACTATED RINGERS 1,000 ML IV ONE ×2 (01:00→02:00)
--- NOTE | 2021-03-19 01:00 | Procedure Note ---
Date of procedure: 03/19/21 Pre-op diagnosis: Left PTX Post-op diagnosis: same Procedure: Left chest tube placement Description of procedure: Pt was supine on his stretcher. Left hand was placed behind his head. Left lateral chest was prepped and draped. Skin and SQ tissue in the anterior axillary line at the level of the nipple were infiltrated with 8 ml of 1% Lidocaine. A 4 mm skin incision was made. The Heimlich small bore catheter was passed through this incision over the top of the adjacent rib and then into the pleural cavity. The catheter was secured to the skin with a suture of 2-0 silk. The catheter was attached to the Heimlich valve. The Heimlich valve was secured to the skin with tape. Pt tolerated the procedure well. An immediate post tube placement CXR was obtained. Findings: CT catheter in good position on post-procedure CXR. Anesthesia: local (5 ml of 1% Lidocaine) Surgeon: CHAKA COLON Estimated blood loss: minimal Pathology: none Condition: stable Disposition: PACU
[2021-03-19] MEDS ORDERED: LACTATED RINGERS 1,000 ML ONE ×2 (01:03→01:41)
--- NOTE | 2021-03-19 01:20 | XRay Report ---
CHEST 1 VIEW 12:58 AM [place] INDICATION: Left PTX. COMPARISON: Earlier the same day FINDINGS: Support devices: There is a new left chest tube with tip at the apex. Heart: Stable. Lungs/Pleura: Left pneumothorax has slightly decreased in size. IMPRESSION: 1. Slight decrease in size of left pneumothorax after chest tube placement. Signer Name: Victor Manuel Ren MD Signed: 03/19/2021 1:16 AM Workstation Name: [id number]
[2021-03-19] MEDS ORDERED: ONDANSETRON 4 MG/2 ML INJ IV PRN (01:39)
[2021-03-19] MEDS ORDERED: HYDROmorphone 1 MG/1 ML INJ IV PRN (01:39)
--- NOTE | 2021-03-19 01:40 | Post Anesthesia Evaluation ---
- Post Anesthesia Evaluation Patient Participated: Yes Airway Patent: Yes Stable Respiratory Function: Yes Nausea/Vomiting: No Temp > 96.8F: Yes Pain Manageable: Yes Adequeate Hydration: Yes Anesthesia Complications: No Block Receding Appropriately: Not Applicable Patient on Ventilator: No
[2021-03-19] MEDS: MORPHINE 2 MG/1 ML INJ IV PRN ×4 (03:43→21:40)
[2021-03-19] MEDS: HEPARIN 5,000 UNIT/1 ML VIAL SUB-Q SCH ×3 (04:31→21:40)
[2021-03-19] MEDS: FAMOTIDINE 20 MG/2 ML INJ IV SCH ×3 (04:32→21:40)
[2021-03-19] MEDS: PIPERACIL/TAZOBACTA 4.5/NS 100 4.5 GM/100 ML VIAL IV SCH ×4 (04:43→23:11)
[2021-03-19] MEDS: D5W/0.9% NACL 1,000 ML IV SCH ×2 (04:43→13:30)
--- NOTE | 2021-03-19 14:35 | XRay Report ---
CHEST 1 VIEW 03/19/2021 2:05 PM INDICATION / CLINICAL INFORMATION: left PTX. COMPARISON: 03/19/2021, 0058 hours FINDINGS: SUPPORT DEVICES: Central venous line, nasogastric tube and left pleural catheter appear unchanged. Th ere is a persistent left pneumothorax which appears slightly increased in size since the earlier stud y. HEART / MEDIASTINUM: No significant abnormality. LUNGS / PLEURA: No significant pulmonary or pleural abnormality. There is a persistent relatively lar ge left pneumothorax despite placement of left pleural catheter. Pneumothorax appears slightly larger when compared to study performed earlier today. ADDITIONAL FINDINGS: No significant additional findings. IMPRESSION: 1. There is persistent large left pneumothorax. Left pleural catheter appears unchanged. Pneumothorax has mildly increased in size since the earlier study. Signer Name: Miguel Cancino MD Signed: 03/19/2021 2:31 PM Workstation Name: [id number]
--- NOTE | 2021-03-19 14:58 | Progress Note ---
Assessment and Plan - Patient Problems (1) SBO (small bowel obstruction) Current Visit: Yes Status: Acute Plan to address problem: 1) Place CT to -20 cm of water suction. 2) Educated pt that NG will need to remain for several days while ileus resolves. 3) Transfer to floor per Hospitalist service. 4) Daily CXR, CBC and BMP 5) Continue broad spectrum IV antibiotics 6) Begin wet to dry dressing changes to abdominal wound. Subjective Date of service: 03/19/21 Patient Reports: Positive: no new complaints, feels better (Wants NG out. No CP or SOB.) Objective Vital Signs - 12hr 03/19/21 03/19/21 03/19/21 03:54 04:00 04:02 Temperature 99.2 F 99.2 F Pulse Rate Pulse Rate [ 130 H From Monitor] Respiratory 14 Rate Blood Pressure O2 Sat by Pulse 96 Oximetry 03/19/21 03/19/21 03/19/21 05:22 05:30 06:00 Temperature Pulse Rate 136 H 137 H 138 H Pulse Rate [ From Monitor] Respiratory 17 17 20 Rate Blood Pressure 136/86 138/91 O2 Sat by Pulse 100 100 99 Oximetry 03/19/21 03/19/21 03/19/21 06:31 07:00 07:30 Temperature Pulse Rate 142 H 134 H 133 H Pulse Rate [ From Monitor] Respiratory 18 17 19 Rate Blood Pressure 134/86 127/90 117/93 O2 Sat by Pulse 100 100 99 Oximetry 03/19/21 03/19/21 03/19/21 07:35 08:00 08:25 Temperature 97.7 F Pulse Rate 131 H Pulse Rate [ 100 H From Monitor] Respiratory 16 Rate Blood Pressure 140/83 O2 Sat by Pulse 100 97 Oximetry 03/19/21 03/19/21 03/19/21 08:30 09:00 09:30 Temperature Pulse Rate 139 H 130 H 132 H Pulse Rate [ From Monitor] Respiratory 17 19 22 Rate Blood Pressure 150/97 133/88 148/95 O2 Sat by Pulse 97 98 96 Oximetry 03/19/21 03/19/21 03/19/21 10:00 10:30 11:00 Temperature Pulse Rate 135 H 136 H 127 H Pulse Rate [ From Monitor] Respiratory 30 H 17 21 Rate Blood Pressure 138/92 148/90 133/83 O2 Sat by Pulse 98 97 96 Oximetry 03/19/21 03/19/21 03/19/21 11:30 12:00 12:09 Temperature 99.8 F H Pulse Rate 133 H 125 H Pulse Rate [ From Monitor] Respiratory 21 9 L Rate Blood Pressure 138/85 121/88 O2 Sat by Pulse 99 100 Oximetry 03/19/21 03/19/21 03/19/21 12:30 13:01 13:31 Temperature Pulse Rate 128 H 129 H 123 H Pulse Rate [ From Monitor] Respiratory 20 19 11 L Rate Blood Pressure 139/90 139/90 135/82 O2 Sat by Pulse 100 100 100 Oximetry 03/19/21 14:00 Temperature Pulse Rate 127 H Pulse Rate [ From Monitor] Respiratory 16 Rate Blood Pressure 145/86 O2 Sat by Pulse 100 Oximetry - Respiratory normal respiratory effort, other (Decreased BS on the left.) - Labs 03/18/21 04:45 03/18/21 04:45 - Imaging Chest x-ray: report reviewed, image reviewed
--- NOTE | 2021-03-19 16:09 | Post Anesthesia Evaluation ---
- Post Anesthesia Evaluation Patient Participated: Yes Airway Patent: Yes Stable Respiratory Function: Yes Nausea/Vomiting: No Temp > 96.8F: Yes Pain Manageable: Yes Adequeate Hydration: Yes Anesthesia Complications: No Block Receding Appropriately: Not Applicable Patient on Ventilator: No Other Comments: patient is still in ICU, awake, stable. Pain is mostly controlled with pain meds
[2021-03-20] MEDS: MORPHINE 2 MG/1 ML INJ IV PRN ×4 (02:17→20:47)
--- NOTE | 2021-03-20 05:20 | XRay Report ---
CHEST 1 VIEW 03/20/2021 3:40 AM INDICATION / CLINICAL INFORMATION: Left PTX. COMPARISON: 03/19/21 FINDINGS: SUPPORT DEVICES: Unchanged. Left pleural tube projects over the left lung apex. HEART / MEDIASTINUM: No significant abnormality. LUNGS / PLEURA: No significant pulmonary or pleural abnormality. Moderate left pneumothorax is slight ly smaller than on prior study. ADDITIONAL FINDINGS: No significant additional findings. IMPRESSION: 1. Interval improvement. Signer Name: Germán Fox MD Signed: 03/20/2021 5:16 AM Workstation Name: [id number]
[2021-03-20 05:24] LABS: Basophils % (Auto) 0.2 % (0.0-1.8); Eosinophils # (Auto) 0.1 K/mm3 (0.0-0.4); Eosinophils % (Auto) 0.5 % (0.0-4.3); Hematocrit 31.1 % (35.5-45.6); Hemoglobin 10.2 gm/dl (11.8-15.2); Lymphocytes # (Auto) 0.9 K/mm3 (1.2-5.4); Lymphocytes % (Auto) 5.4 % (13.4-35.0); Mean Corpuscular HGB Conc 33 % (32-34); Mean Corpuscular Volume 101 fl (84-94); Monocytes # (Auto) 1.4 K/mm3 (0.0-0.8); Monocytes % (Auto) 8.8 % (0.0-7.3); Platelet Count 297 K/mm3 (140-440); Red Blood Count 3.07 M/mm3 (3.65-5.03); Red Cell Distribution Width 12.7 % (13.2-15.2)
[2021-03-20 05:46] LABS: BUN/Creatinine Ratio 11; Blood Urea Nitrogen 12 mg/dL (9-20); Calcium 7.8 mg/dL (8.4-10.2); Hemolysis Index 6
[2021-03-20] MEDS: HYDROmorphone 1 MG/1 ML INJ IV PRN ×3 (08:59→18:55)
[2021-03-20] MEDS: FAMOTIDINE 20 MG/2 ML INJ IV SCH ×2 (08:59→21:17)
[2021-03-20] MEDS: HEPARIN 5,000 UNIT/1 ML VIAL SUB-Q SCH ×2 (08:59→21:16)
[2021-03-20] MEDS: D5W/0.9% NACL 1,000 ML IV SCH ×2 (09:00→20:48)
[2021-03-20] MEDS: PIPERACIL/TAZOBACTA 4.5/NS 100 4.5 GM/100 ML VIAL IV SCH ×2 (09:02→16:13)
--- NOTE | 2021-03-20 15:56 | Progress Note ---
Assessment and Plan - Patient Problems (1) SBO (small bowel obstruction) Current Visit: Yes Status: Acute Plan to address problem: 1) Continue Zosyn 2) DC draper 3) Begin dressing changes to abdomen 4) CXR in the am 5) Ambulate in halls Subjective Date of service: 03/20/21 Patient Reports: Positive: no new complaints, feels better, pain is less, no flatus, no bowel movement Objective Vital Signs - 12hr 03/20/21 03/20/21 03/20/21 04:00 04:30 05:00 Temperature 98.9 F Pulse Rate 111 H 107 H 108 H Pulse Rate [ From Monitor] Respiratory 17 20 16 Rate Blood Pressure 125/71 135/70 135/85 O2 Sat by Pulse 97 99 99 Oximetry 03/20/21 03/20/21 03/20/21 05:30 06:00 06:30 Temperature Pulse Rate 108 H 108 H 107 H Pulse Rate [ From Monitor] Respiratory 20 21 22 Rate Blood Pressure 134/82 127/85 136/83 O2 Sat by Pulse 98 97 98 Oximetry 03/20/21 03/20/21 03/20/21 07:00 07:30 08:00 Temperature Pulse Rate 103 H 102 H 105 H Pulse Rate [ 100 H From Monitor] Respiratory 14 19 19 Rate Blood Pressure 141/83 126/76 128/80 O2 Sat by Pulse 97 98 98 Oximetry 03/20/21 03/20/21 03/20/21 08:30 09:00 09:06 Temperature Pulse Rate 104 H 110 H Pulse Rate [ From Monitor] Respiratory 18 22 Rate Blood Pressure 118/79 137/77 O2 Sat by Pulse 99 98 98 Oximetry 03/20/21 03/20/21 03/20/21 09:30 10:00 10:30 Temperature Pulse Rate 106 H 101 H 102 H Pulse Rate [ From Monitor] Respiratory 16 18 22 Rate Blood Pressure 141/78 137/80 142/85 O2 Sat by Pulse 98 97 95 Oximetry 03/20/21 03/20/21 03/20/21 11:00 11:30 12:00 Temperature 98.4 F Pulse Rate 99 H 98 H 102 H Pulse Rate [ 105 H From Monitor] Respiratory 19 14 14 Rate Blood Pressure 135/77 142/81 142/81 O2 Sat by Pulse 96 96 97 Oximetry 03/20/21 03/20/21 03/20/21 12:30 13:00 13:30 Temperature Pulse Rate 103 H 99 H 102 H Pulse Rate [ From Monitor] Respiratory 24 15 17 Rate Blood Pressure 133/85 132/81 139/79 O2 Sat by Pulse 99 97 98 Oximetry 03/20/21 03/20/21 03/20/21 14:00 14:30 15:00 Temperature Pulse Rate 100 H 98 H 101 H Pulse Rate [ 106 H From Monitor] Respiratory 20 18 17 Rate Blood Pressure 137/87 143/83 141/85 O2 Sat by Pulse 98 98 98 Oximetry - Abdomen soft, bowel sounds hypoactive, not distended (Appropriately TTP), not rebound, not guarding - Labs 03/20/21 04:25 03/20/21 04:25 Diabetes panel 03/20/21 Range/Units 04:25 Sodium 135 L (137-145) mmol/L Potassium 4.3 (3.6-5.0) mmol/L Chloride 99.8 (98-107) mmol/L Carbon Dioxide 28 (22-30) mmol/L BUN 12 (9-20) mg/dL Creatinine 1.1 (0.8-1.3) mg/dL Glucose 131 H (75-100) mg/dL Calcium 7.8 L D (8.4-10.2) mg/dL Calcium panel 03/20/21 Range/Units 04:25 Calcium 7.8 L D (8.4-10.2) mg/dL Pituitary panel 03/20/21 Range/Units 04:25 Sodium 135 L (137-145) mmol/L Potassium 4.3 (3.6-5.0) mmol/L Chloride 99.8 (98-107) mmol/L Carbon Dioxide 28 (22-30) mmol/L BUN 12 (9-20) mg/dL Creatinine 1.1 (0.8-1.3) mg/dL Glucose 131 H (75-100) mg/dL Calcium 7.8 L D (8.4-10.2) mg/dL Adrenal panel 03/20/21 Range/Units 04:25 Sodium 135 L (137-145) mmol/L Potassium 4.3 (3.6-5.0) mmol/L Chloride 99.8 (98-107) mmol/L Carbon Dioxide 28 (22-30) mmol/L BUN 12 (9-20) mg/dL Creatinine 1.1 (0.8-1.3) mg/dL Glucose 131 H (75-100) mg/dL Calcium 7.8 L D (8.4-10.2) mg/dL - Imaging Chest x-ray: report reviewed, image reviewed
--- NOTE | 2021-03-20 18:02 | Progress Note ---
Assessment and Plan - Patient Problems (1) SIRS (systemic inflammatory response syndrome) Current Visit: Yes Status: Acute Plan to address problem: Patient has leukocytosis and clinical picture consistent with systemic inflammatory response syndrome No sepsis at this point (2) SBO (small bowel obstruction) Current Visit: Yes Status: Acute Plan to address problem: NG tube to low Gomco suction. Possible causes inflammatory disease and pelvic abscess . Broad-spectrum IV antibiotics initiated. (3) Inflammatory bowel disease Current Visit: Yes Status: Acute Plan to address problem: May have ulcerative colitis/Crohn's disease Will defer to GI for further recommendations (4) Pelvic abscess in male Current Visit: Yes Status: Acute Plan to address problem: Possible perforation and pelvic abscess Perforation of appendix in the differential diagnosis IV Zosyn and IV vancomycin (5) DVT prophylaxis Current Visit: Yes Status: Acute Plan to address problem: On SCDs and GI prophylaxis (6) Hyponatremia Current Visit: Yes Status: Acute Plan to address problem: IV normal saline for now Subjective Date of service: 03/19/21 Principal diagnosis: Small bowel obstruction and pelvic abscess Interval history: 35-year-old male with no significant past medical history comes in for abdominal pain of 3 days duration. Persistent nausea and vomiting for the last 3 days. Patient also had couple of loose bowel movements. Patient feels that his abdomen is going to explode. Abdomen is distended. Pain is about scale of 1- 10. Patient states that he did not have any surgeries in the past. Food and liquids is an exacerbating factor. Pain is sharp and 10 on a scale of 1-10. Patient endorses because of the pain. 03/19/2021 Patient going for surgery today Objective - Constitutional Vitals: Vital Signs - 12hr 03/20/21 03/20/21 03/20/21 06:30 07:00 07:30 Temperature Pulse Rate 107 H 103 H 102 H Pulse Rate [ 100 H From Monitor] Respiratory 22 14 19 Rate Blood Pressure 136/83 141/83 126/76 O2 Sat by Pulse 98 97 98 Oximetry 03/20/21 03/20/21 03/20/21 08:00 08:30 09:00 Temperature Pulse Rate 105 H 104 H 110 H Pulse Rate [ From Monitor] Respiratory 19 18 22 Rate Blood Pressure 128/80 118/79 137/77 O2 Sat by Pulse 98 99 98 Oximetry 03/20/21 03/20/21 03/20/21 09:06 09:30 10:00 Temperature Pulse Rate 106 H 101 H Pulse Rate [ From Monitor] Respiratory 16 18 Rate Blood Pressure 141/78 137/80 O2 Sat by Pulse 98 98 97 Oximetry 03/20/21 03/20/21 03/20/21 10:30 11:00 11:30 Temperature Pulse Rate 102 H 99 H 98 H Pulse Rate [ 105 H From Monitor] Respiratory 22 19 14 Rate Blood Pressure 142/85 135/77 142/81 O2 Sat by Pulse 95 96 96 Oximetry 03/20/21 03/20/21 03/20/21 12:00 12:30 13:00 Temperature 98.4 F Pulse Rate 102 H 103 H 99 H Pulse Rate [ From Monitor] Respiratory 14 24 15 Rate Blood Pressure 142/81 133/85 132/81 O2 Sat by Pulse 97 99 97 Oximetry 03/20/21 03/20/21 03/20/21 13:30 14:00 14:30 Temperature Pulse Rate 102 H 100 H 98 H Pulse Rate [ From Monitor] Respiratory 17 20 18 Rate Blood Pressure 139/79 137/87 143/83 O2 Sat by Pulse 98 98 98 Oximetry 03/20/21 03/20/21 03/20/21 15:00 15:30 16:00 Temperature 98.2 F Pulse Rate 101 H 101 H 104 H Pulse Rate [ 106 H From Monitor] Respiratory 17 18 16 Rate Blood Pressure 141/85 136/84 134/88 O2 Sat by Pulse 98 97 98 Oximetry 03/20/21 03/20/21 16:30 17:00 Temperature Pulse Rate 108 H 102 H Pulse Rate [ From Monitor] Respiratory 20 12 Rate Blood Pressure 134/88 119/89 O2 Sat by Pulse 93 96 Oximetry General appearance: Present: no acute distress, well-nourished - EENT Eyes: PERRL, EOM intact ENT: hearing intact, clear oral mucosa Ears: bilateral: normal - Neck Neck: supple, normal ROM - Respiratory Respiratory effort: normal Respiratory: left: diminished, bilateral: CTA - Breasts Breasts: normal - Cardiovascular Rhythm: regular Heart Sounds: Present: S1 & S2. Absent: gallop, rub Extremities: pulses intact, No edema, normal color, Full ROM - Gastrointestinal General gastrointestinal: Present: soft, tender, hypoactive bowel sounds - Genitourinary Male genitourinary: normal - Integumentary Integumentary: clear, warm, dry - Musculoskeletal Musculoskeletal: 1, strength equal bilaterally - Neurologic Neurologic: moves all extremities - Psychiatric Psychiatric: memory intact, appropriate mood/affect, intact judgment & insight - Labs CBC & Chem 7: 03/20/21 04:25 03/20/21 04:25 Labs: Abnormal lab results 03/20/21 03/20/21 Range/Units 04:25 04:25 WBC 16.0 H (4.5-11.0) K/mm3 RBC 3.07 L (3.65-5.03) M/mm3 Hgb 10.2 L D (11.8-15.2) gm/dl Hct 31.1 L D (35.5-45.6) % MCV 101 H (84-94) fl MCH 33 H (28-32) pg RDW 12.7 L (13.2-15.2) % Lymph % (Auto) 5.4 L (13.4-35.0) % [place] % (Auto) 8.8 H (0.0-7.3) % Lymph # (Auto) 0.9 L (1.2-5.4) K/mm3 [place] # (Auto) 1.4 H (0.0-0.8) K/mm3 Seg Neutrophils % 85.1 H (40.0-70.0) % Seg Neutrophils # 13.6 H (1.8-7.7) K/mm3 Sodium 135 L (137-145) mmol/L Glucose 131 H (75-100) mg/dL Calcium 7.8 L D (8.4-10.2) mg/dL
[2021-03-20] MEDS: SODIUM HYPOCHLORITE, DAKIN'S FULL STRENGTH (0.5%) 473 ML TOPICAL SOLN TP PRN (18:43)
[2021-03-21] MEDS: PIPERACIL/TAZOBACTA 4.5/NS 100 4.5 GM/100 ML VIAL IV SCH ×3 (00:35→17:31)
[2021-03-21] MEDS: MORPHINE 2 MG/1 ML INJ IV PRN ×3 (00:45→17:31)
[2021-03-21] MEDS: D5W/0.9% NACL 1,000 ML IV SCH ×3 (04:51→22:41)
--- NOTE | 2021-03-21 05:40 | XRay Report ---
CHEST 1 VIEW 03/21/2021 4:26 AM INDICATION / CLINICAL INFORMATION: Left pneumothorax. COMPARISON: 03/20/21 FINDINGS: SUPPORT DEVICES: Unchanged. HEART / MEDIASTINUM: No significant abnormality. LUNGS / PLEURA: No significant pulmonary or pleural abnormality. Moderate left pneumothorax is unchan ged. ADDITIONAL FINDINGS: No significant additional findings. IMPRESSION: 1. Stable left pneumothorax. Signer Name: Germán Fox MD Signed: 03/21/2021 5:35 AM Workstation Name: [id number]
[2021-03-21] MEDS: HYDROmorphone 1 MG/1 ML INJ IV PRN ×3 (09:24→21:08)
[2021-03-21] MEDS: FAMOTIDINE 20 MG/2 ML INJ IV SCH ×2 (09:25→21:08)
[2021-03-21] MEDS: HEPARIN 5,000 UNIT/1 ML VIAL SUB-Q SCH ×2 (09:25→21:08)
--- NOTE | 2021-03-21 09:29 | Progress Note ---
Assessment and Plan - Patient Problems (1) Pneumothorax, left Current Visit: Yes Status: Acute Plan to address problem: Patient has chest tube Monitor for now Solids Control Technician consult (2) SIRS (systemic inflammatory response syndrome) Current Visit: Yes Status: Acute Plan to address problem: Patient has leukocytosis and clinical picture consistent with systemic inflammatory response syndrome No sepsis at this point (3) SBO (small bowel obstruction) Current Visit: Yes Status: Acute Plan to address problem: 1) Right colectomy with ileocolonic anastomosis 2) Drainage of pelvic abscess 3) Placement of left subclavian CVL (4) Inflammatory bowel disease Current Visit: Yes Status: Acute Plan to address problem: May have ulcerative colitis/Crohn's disease Will defer to GI for further recommendations (5) Pelvic abscess in male Current Visit: Yes Status: Acute Plan to address problem: Abscess drained Continue IV antibiotics (6) Hyponatremia Current Visit: Yes Status: Acute Plan to address problem: Sodium level improved to 135 (7) DVT prophylaxis Current Visit: Yes Status: Acute Plan to address problem: On SCDs and GI prophylaxis Subjective Date of service: 03/20/21 Principal diagnosis: Small bowel obstruction and pelvic abscess Interval history: 35-year-old male with no significant past medical history comes in for abdominal pain of 3 days duration. Persistent nausea and vomiting for the last 3 days. Patient also had couple of loose bowel movements. Patient feels that his abdomen is going to explode. Abdomen is distended. Pain is about scale of 1- 10. Patient states that he did not have any surgeries in the past. Food and liquids is an exacerbating factor. Pain is sharp and 10 on a scale of 1-10. Patient endorses because of the pain. 03/19/2021 Patient going for surgery today 03/20/2021 Patient had surgery yesterday 1) Right colectomy with ileocolonic anastomosis 2) Drainage of pelvic abscess 3) Placement of left subclavian CVL 4) left pneumothorax for which a chest tube was placed Objective - Constitutional Vitals: Vital Signs - 12hr 03/20/21 03/20/21 03/20/21 22:30 23:00 23:30 Temperature Pulse Rate 99 H 97 H 98 H Pulse Rate [ 106 H From Monitor] Respiratory 16 12 18 Rate Blood Pressure 137/78 142/81 137/86 O2 Sat by Pulse 100 100 100 Oximetry 1103/21/21 03/21/21 00:00 00:30 01:30 EDT Temperature 98.9 F Pulse Rate 94 H 99 H 97 H Pulse Rate [ From Monitor] Respiratory 11 L 19 27 H Rate Blood Pressure 141/89 143/91 135/88 O2 Sat by Pulse 100 100 100 Oximetry 03/21/21 03/21/21 03/21/21 02:00 02:30 02:50 Temperature 98.7 F Pulse Rate 97 H 97 H Pulse Rate [ 106 H From Monitor] Respiratory 18 19 Rate Blood Pressure 148/87 145/92 O2 Sat by Pulse 83 L 100 Oximetry 03/21/21 03/21/21 03/21/21 03:00 03:30 04:00 Temperature Pulse Rate 94 H 94 H 94 H Pulse Rate [ From Monitor] Respiratory 18 16 18 Rate Blood Pressure 135/82 140/83 139/86 O2 Sat by Pulse 100 100 100 Oximetry 03/21/21 03/21/21 03/21/21 04:30 05:00 05:30 Temperature Pulse Rate 94 H 94 H 89 Pulse Rate [ From Monitor] Respiratory 18 22 16 Rate Blood Pressure 132/86 141/81 140/84 O2 Sat by Pulse 100 100 100 Oximetry 03/21/21 03/21/21 06:00 06:30 Temperature Pulse Rate 93 H 88 Pulse Rate [ 106 H From Monitor] Respiratory 16 16 Rate Blood Pressure 146/87 129/81 O2 Sat by Pulse 100 100 Oximetry General appearance: Present: no acute distress, well-nourished - EENT Eyes: PERRL, EOM intact ENT: hearing intact, clear oral mucosa Ears: bilateral: normal - Neck Neck: supple, normal ROM - Respiratory Respiratory effort: normal Respiratory: left: diminished, bilateral: CTA - Breasts Breasts: normal - Cardiovascular Heart rate: 98 Rhythm: regular Heart Sounds: Present: S1 & S2. Absent: gallop, rub Extremities: no ischemia, pulses intact, No edema, normal color, Full ROM - Gastrointestinal General gastrointestinal: Present: soft, non-tender, non-distended, normal bowel sounds, hypoactive bowel sounds Localized gastrointestinal: tender: diffuse Rectal Exam: deferred - Genitourinary Male genitourinary: normal - Integumentary Integumentary: clear, warm, dry - Musculoskeletal Musculoskeletal: 1, strength equal bilaterally - Neurologic Neurologic: moves all extremities - Psychiatric Psychiatric: memory intact, appropriate mood/affect, intact judgment & insight - Labs CBC & Chem 7: 03/20/21 04:25 03/20/21 04:25
[2021-03-21 11:18] LABS: Basophils % (Auto) 0.3 % (0.0-1.8); Eosinophils # (Auto) 0.2 K/mm3 (0.0-0.4); Eosinophils % (Auto) 1.4 % (0.0-4.3); Lymphocytes % (Auto) 9.3 % (13.4-35.0); Mean Corpuscular HGB Conc 33 % (32-34); Mean Corpuscular Volume 100 fl (84-94); Monocytes # (Auto) 0.8 K/mm3 (0.0-0.8); Monocytes % (Auto) 7.2 % (0.0-7.3); Platelet Count 321 K/mm3 (140-440); Red Cell Distribution Width 13.1 % (13.2-15.2)
[2021-03-21 11:53] LABS: Alanine Aminotransferase 17 units/L (7-56); Albumin 2.3 g/dL (3.9-5); BUN/Creatinine Ratio 9; Blood Urea Nitrogen 7 mg/dL (9-20); Calcium 8.3 mg/dL (8.4-10.2); Hemolysis Index 56
--- NOTE | 2021-03-21 14:19 | Progress Note ---
Assessment and Plan - Patient Problems (1) SBO (small bowel obstruction) Current Visit: Yes Status: Acute Plan to address problem: 1) Continue NG to LIS 2) Continue Zosyn (See C&S result.) 3) CBC & BMP tomorrow 4) KUB tomorrow Subjective Date of service: 03/21/21 Patient Reports: Positive: no new complaints, feels better, pain is less, no flatus, no bowel movement Objective Vital Signs - 12hr 03/21/21 03/21/21 03/21/21 02:30 02:50 03:00 Temperature 98.7 F Pulse Rate 97 H 94 H Pulse Rate [ From Monitor] Respiratory 19 18 Rate Blood Pressure 145/92 135/82 O2 Sat by Pulse 100 100 Oximetry 03/21/21 03/21/21 03/21/21 03:30 04:00 04:30 Temperature Pulse Rate 94 H 94 H 94 H Pulse Rate [ From Monitor] Respiratory 16 18 18 Rate Blood Pressure 140/83 139/86 132/86 O2 Sat by Pulse 100 100 100 Oximetry 03/21/21 03/21/21 03/21/21 05:00 05:30 06:00 Temperature Pulse Rate 94 H 89 93 H Pulse Rate [ 106 H From Monitor] Respiratory 22 16 16 Rate Blood Pressure 141/81 140/84 146/87 O2 Sat by Pulse 100 100 100 Oximetry 03/21/21 03/21/21 03/21/21 06:30 07:00 07:30 Temperature Pulse Rate 88 88 88 Pulse Rate [ From Monitor] Respiratory 16 15 15 Rate Blood Pressure 129/81 126/81 136/81 O2 Sat by Pulse 100 100 100 Oximetry 03/21/21 03/21/21 03/21/21 08:00 08:30 09:00 Temperature 99.1 F Pulse Rate 90 87 88 Pulse Rate [ From Monitor] Respiratory 19 12 20 Rate Blood Pressure 133/85 135/83 131/93 O2 Sat by Pulse 100 100 100 Oximetry 03/21/21 03/21/21 03/21/21 09:30 09:59 10:00 Temperature Pulse Rate 93 H 85 Pulse Rate [ 100 H From Monitor] Respiratory 14 19 Rate Blood Pressure 141/96 145/88 O2 Sat by Pulse 100 99 100 Oximetry 03/21/21 03/21/21 03/21/21 10:30 11:00 11:30 Temperature Pulse Rate 89 88 87 Pulse Rate [ From Monitor] Respiratory 20 19 23 Rate Blood Pressure 145/88 145/88 157/97 O2 Sat by Pulse 100 85 100 Oximetry 03/21/21 12:00 Temperature 98.8 F Pulse Rate 89 Pulse Rate [ From Monitor] Respiratory 20 Rate Blood Pressure 144/96 O2 Sat by Pulse 100 Oximetry - Abdomen soft, bowel sounds hypoactive, not distended (Appropriately TTP. BETH drainage is SS.), not rebound, not guarding - Labs 03/21/21 11:03 03/21/21 11:03 Diabetes panel 03/21/21 Range/Units 11:03 Sodium 136 L (137-145) mmol/L Potassium 4.4 (3.6-5.0) mmol/L Chloride 102.2 (98-107) mmol/L Carbon Dioxide 26 (22-30) mmol/L BUN 7 L (9-20) mg/dL Creatinine 0.8 (0.8-1.3) mg/dL Glucose 106 H (75-100) mg/dL Calcium 8.3 L (8.4-10.2) mg/dL AST 21 (5-40) units/L ALT 17 (7-56) units/L Alkaline Phosphatase 72 (35-129) units/L Total Protein 5.8 L (6.3-8.2) g/dL Albumin 2.3 L (3.9-5) g/dL Calcium panel 03/21/21 Range/Units 11:03 Calcium 8.3 L (8.4-10.2) mg/dL Albumin 2.3 L (3.9-5) g/dL Pituitary panel 03/21/21 Range/Units 11:03 Sodium 136 L (137-145) mmol/L Potassium 4.4 (3.6-5.0) mmol/L Chloride 102.2 (98-107) mmol/L Carbon Dioxide 26 (22-30) mmol/L BUN 7 L (9-20) mg/dL Creatinine 0.8 (0.8-1.3) mg/dL Glucose 106 H (75-100) mg/dL Calcium 8.3 L (8.4-10.2) mg/dL Adrenal panel 03/21/21 Range/Units 11:03 Sodium 136 L (137-145) mmol/L Potassium 4.4 (3.6-5.0) mmol/L Chloride 102.2 (98-107) mmol/L Carbon Dioxide 26 (22-30) mmol/L BUN 7 L (9-20) mg/dL Creatinine 0.8 (0.8-1.3) mg/dL Glucose 106 H (75-100) mg/dL Calcium 8.3 L (8.4-10.2) mg/dL Total Bilirubin 0.40 (0.1-1.2) mg/dL AST 21 (5-40) units/L ALT 17 (7-56) units/L Alkaline Phosphatase 72 (35-129) units/L Total Protein 5.8 L (6.3-8.2) g/dL Albumin 2.3 L (3.9-5) g/dL
--- NOTE | 2021-03-21 19:53 | Progress Note ---
Assessment and Plan Assessment and plan: High-grade severe small bowel obstruction with leukocytosis and low-grade fever at presentation Patient had the first episode about 3 months ago Patient did not seek medical attention, symptoms resolved after 4 days No known past medical or surgical history Hyponatremia likely from vomiting, resolved Laparotomy on 03/18 revealed pelvic abscess possibly from a ruptured appendix, IBD, await Likely histopathology report Surgical cultures growing E. coli sensitive to ceftriaxone, Levaquin and Zosyn Status post right hemicolectomy and ileocolic end-to-end anastomosis Leukocytosis resolving but low grade fever persists. Blood cultures negative Left pneumothorax with central line placement, s/p chest tube placement Plan: Remains stable postoperatively, general surgery following closely No output from left chest tube Continue n.p.o. until bowel function returns Continue Zosyn empirically Continue IV fluids Continue NG suction Monitor WBC, electrolytes and renal function Pain medication and antiemetic as needed. Discussed with the patient, nursing staff History Interval history: Patient remains stable postop. No flatus or BM. Remains on NG suction. Left chest tube connected to Pleur-evac but no output. Has a low-grade fever but vital signs stable. Patient currently has no complaints. No significant abdominal pain. Nausea control. Hospitalist Physical - Constitutional Vitals: Temp Pulse Resp BP Pulse Ox 98.6 F 90 17 154/91 97 03/21/21 16:00 03/21/21 18:30 03/21/21 18:30 03/21/21 18:30 03/21/21 19:45 General appearance: Present: no acute distress, other (Alert and oriented, looks comfortable) - EENT Eyes: Present: PERRL, EOM intact ENT: hearing intact, other (NG tube in place) - Neck Neck: Present: supple - Respiratory Respiratory effort: normal, other (Left chest tube connected to Pleur-evac) Respiratory: bilateral: CTA - Cardiovascular Rhythm: regular - Extremities Extremities: No edema - Abdominal General gastrointestinal: soft, non-distended, absent bowel sounds, other (Dressings in place on laparotomy incision, no obvious drainage) - Integumentary Integumentary: Absent: rash - Psychiatric Psychiatric: appropriate mood/affect - Neurologic Neurologic: no focal deficits Results - Labs CBC & Chem 7: 03/21/21 11:03 03/21/21 11:03 Labs: Laboratory Last Values WBC 11.1 K/mm3 (4.5-11.0) H 03/21/21 11:03 RBC 3.00 M/mm3 (3.65-5.03) L 03/21/21 11:03 Hgb 10.0 gm/dl (11.8-15.2) L 03/21/21 11:03 Hct 30.0 % (35.5-45.6) L 03/21/21 11:03 MCV 100 fl (84-94) H 03/21/21 11:03 MCH 33 pg (28-32) H 03/21/21 11:03 MCHC 33 % (32-34) 03/21/21 11:03 RDW 13.1 % (13.2-15.2) L 03/21/21 11:03 Plt Count 321 K/mm3 (140-440) 03/21/21 11:03 Lymph % (Auto) 9.3 % (13.4-35.0) L 03/21/21 11:03 [place] % (Auto) 7.2 % (0.0-7.3) 03/21/21 11:03 Eos % (Auto) 1.4 % (0.0-4.3) 03/21/21 11:03 Baso % (Auto) 0.3 % (0.0-1.8) 03/21/21 11:03 Lymph # (Auto) 1.0 K/mm3 (1.2-5.4) L 03/21/21 11:03 [place] # (Auto) 0.8 K/mm3 (0.0-0.8) 03/21/21 11:03 Eos # (Auto) 0.2 K/mm3 (0.0-0.4) 03/21/21 11:03 Baso # (Auto) 0.0 K/mm3 (0.0-0.1) 03/21/21 11:03 Seg Neutrophils % 81.8 % (40.0-70.0) H 03/21/21 11:03 Seg Neutrophils # 9.1 K/mm3 (1.8-7.7) H 03/21/21 11:03 Sodium 136 mmol/L (137-145) L 03/21/21 11:03 Potassium 4.4 mmol/L (3.6-5.0) 03/21/21 11:03 Chloride 102.2 mmol/L (98-107) 03/21/21 11:03 Carbon Dioxide 26 mmol/L (22-30) 03/21/21 11:03 Anion Gap 12 mmol/L 03/21/21 11:03 BUN 7 mg/dL (9-20) L 03/21/21 11:03 Creatinine 0.8 mg/dL (0.8-1.3) 03/21/21 11:03 Estimated GFR > 60 ml/min 03/21/21 11:03 BUN/Creatinine Ratio 9 % 03/21/21 11:03 Glucose 106 mg/dL (75-100) H 03/21/21 11:03 Calcium 8.3 mg/dL (8.4-10.2) L 03/21/21 11:03 Total Bilirubin 0.40 mg/dL (0.1-1.2) 03/21/21 11:03 AST 21 units/L (5-40) 03/21/21 11:03 ALT 17 units/L (7-56) 03/21/21 11:03 Alkaline Phosphatase 72 units/L (35-129) 03/21/21 11:03 Total Protein 5.8 g/dL (6.3-8.2) L 03/21/21 11:03 Albumin 2.3 g/dL (3.9-5) L 03/21/21 11:03 Albumin/Globulin Ratio 0.7 % 03/21/21 11:03 Lipase 262 units/L (13-60) H 03/17/21 14:09 Urine Color Yellow (Yellow) 03/18/21 Unknown Urine Turbidity Clear (Clear) 03/18/21 Unknown Urine pH 5.0 (5.0-7.0) 03/18/21 Unknown Ur Specific [place] 1.019 (1.003-1.030) 03/18/21 Unknown Urine Protein 30 mg/dl mg/dL (Negative) 03/18/21 Unknown Urine Glucose (UA) Neg mg/dL (Negative) 03/18/21 Unknown Urine Ketones 20 mg/dL (Negative) 03/18/21 Unknown Urine Blood Neg (Negative) 03/18/21 Unknown Urine Nitrite Neg (Negative) 03/18/21 Unknown Urine Bilirubin Neg (Negative) 03/18/21 Unknown Urine Urobilinogen 2.0 mg/dL (<2.0) 03/18/21 Unknown Ur Leukocyte Esterase Neg (Negative) 03/18/21 Unknown Urine WBC (Auto) 3.0 /HPF (0.0-6.0) 03/18/21 Unknown Urine RBC (Auto) 2.0 /HPF (0.0-6.0) 03/18/21 Unknown Urine Mucus Few /HPF 03/18/21 Unknown Coronavirus (PCR) Negative (Negative) 03/19/21 Unknown Microbiology: Microbiology 03/18/21 10:37 Peripheral/Venous Blood Culture - Preliminary NO GROWTH AFTER 72 HOURS 03/18/21 10:37 Peripheral/Venous Blood Culture - Preliminary NO GROWTH AFTER 72 HOURS 03/18/21 Unknown Abdomen Surgical Culture - Preliminary Escherichia Coli [place]/IV: Voiding Method Indwelling Catheter Active Medications - Current Medications Current Medications: Generic Name Dose Route Start Last Admin Trade Name Freq PRN Reason Stop Dose Admin Acetaminophen 650 mg 03/17/21 22:33 Acetaminophen 325 Mg Tab PO Q4H PRN Pain MILD(1-3)/Fever >100.5/CHRISTIANSEN Acetaminophen 650 mg 03/17/21 22:41 Acetaminophen 650 Mg Rect Supp DE Q4H PRN Pain MILD(1-3)/Fever >100.5/CHRISTIANSEN Famotidine 20 mg 03/17/21 23:00 03/21/21 09:25 Famotidine 20 Mg/2 Ml Inj IV 20 mg BID PRASHANT Administration Heparin Sodium (Porcine) 5,000 unit 03/18/21 10:00 03/21/21 09:25 Heparin 5,000 Unit/1 Ml Vial SUB-Q 5,000 unit Q12HR PRASHANT Administration Hydromorphone HCl 0.5 mg 03/17/21 22:41 03/21/21 14:06 Hydromorphone 1 Mg/1 Ml Inj IV 0.5 mg Q3H PRN Administration Pain , Severe (7-10) Dextrose/Sodium Chloride 1,000 mls @ 125 mls/hr 03/17/21 23:00 03/21/21 14:08 D5ns IV 125 mls/hr DIRECT PRASHANT Administration Piperacillin Sod/Tazobactam Sod 4.5 gm in 100 mls @ 200 mls/hr 03/18/21 08:00 03/21/21 17:31 Zosyn/Ns 4.5gm/100ml IV 200 mls/hr Q8H PRASHANT Administration Protocol Metoclopramide HCl 10 mg 03/17/21 22:33 Metoclopramide 10 Mg/2 Ml Inj IV Q6H PRN Nausea And Vomiting Morphine Sulfate 2 mg 03/17/21 22:41 03/21/21 17:31 Morphine 2 Mg/1 Ml Inj IV 2 mg Q4H PRN Administration Pain, Moderate (4-6) Ondansetron HCl 4 mg 03/17/21 22:33 03/18/21 16:30 Ondansetron 4 Mg/2 Ml Inj IV 4 mg Q8H PRN Administration Nausea And Vomiting Sodium Chloride 10 ml 03/17/21 22:33 Sodium Chloride 0.9% 10 Ml Flush Syringe IV PRN PRN LINE FLUSH Sodium Chloride 10 ml 03/18/21 10:00 03/21/21 09:25 Sodium Chloride 0.9% 10 Ml Flush Syringe IV 10 ml BID PRASHANT Administration Sodium Hypochlorite 1 applic 03/20/21 15:56 03/20/21 18:43 Sodium Hypochlorite, Dakin's Full Strength (0.5%) 473 Ml Topical Soln TP 1 applicatio Q12H PRN Administration Wound Care Nutrition/Malnutrition Assess - Dietary Evaluation Nutrition/Malnutrition Findings: Nutrition Notes Start: 03/19/21 11:28 Freq: Status: Active Protocol: Document 03/19/21 11:28 CHANCE (Rec: 03/19/21 11:56 CHANCE [id number]) Nutrition Notes Need for Assessment generated from: door puller,MST Initial or Follow up Assessment Other Pertinent Diagnosis Small bowel obstruction, Surgery, SIRS. Current Diet NPO (since 03/17 22:35). Labs/Tests 03/18: Na 130, Cl 83.2, CO2 32 , Alb 3.3. Pertinent Medications 03/19: D5ns 1000 ml @ 125 ml/ hr, others nutritionally unremarkable. Height 6 ft 5 in Weight 71.2 kg Winnie Body Weight (kg) 94.54 BMI 18.6 Weight Status Appropriate Subjective/Other Information RD consult for risk of malnutrition assessment. Percent of energy/protein needs met: Pt currently on NPO. Burn Absent Trauma Absent GI Symptoms Other Food Allergy No Skin Integrity/Comment Clear, warm, dry. Current % PO Other #1 Nutrition Diagnosis No nutrition diagnosis at this time Comments: Pt currently on NPO. Pt shows no signs of concern for chronic malnutrition at the time, acording to HX and Physical notes. Is patient on ventilator? No Is Patient Ambulatory and/or Out of Bed Yes REE-([place]-St. Jeor-ambulatory/OOB) [ 2287.194 [id number]] Kcal/Kg value to use for calculation 32 Approximate Energy Requirements Using 2278 kcal/Kg Calculation Used for Recommendations Kcal/kg Additional Notes Protein: 1.2-1.5 g/Kg; 114-143 g/day (from IBW+surgery). Fluids: 1 ml/Kcal, or as per MD. Nutrition Intervention Change Diet Order: Continue NPO as per MD; when pertinent, advance to PO. Goal #1 Maintain body weight within +/ -3% of current BWt during LOS. Goal #2 Reach and maintain acceptable chemistry lab values during LOS. Follow-Up By: 03/22/21 Additional Comments Continue monitoring Hydration and BM; when pertinent, food tolerance and %PO intake of meals.
[2021-03-22] MEDS: PIPERACIL/TAZOBACTA 4.5/NS 100 4.5 GM/100 ML VIAL IV SCH ×2 (01:29→09:13)
[2021-03-22] MEDS: MORPHINE 2 MG/1 ML INJ IV PRN ×4 (02:06→21:36)
[2021-03-22] MEDS: HYDROmorphone 1 MG/1 ML INJ IV PRN ×4 (05:28→23:50)
[2021-03-22 06:10] LABS: Basophils # (Auto) 0.1 K/mm3 (0.0-0.1); Eosinophils # (Auto) 0.1 K/mm3 (0.0-0.4); Eosinophils % (Auto) 1.4 % (0.0-4.3); Hematocrit 26.6 % (35.5-45.6); Hemoglobin 9.4 gm/dl (11.8-15.2); Lymphocytes # (Auto) 1.3 K/mm3 (1.2-5.4); Mean Corpuscular HGB Conc 35 % (32-34); Mean Corpuscular Volume 98 fl (84-94); Monocytes # (Auto) 0.8 K/mm3 (0.0-0.8); Platelet Count 324 K/mm3 (140-440); Red Blood Count 2.71 M/mm3 (3.65-5.03); Red Cell Distribution Width 12.8 % (13.2-15.2)
[2021-03-22 06:32] LABS: BUN/Creatinine Ratio 8; Blood Urea Nitrogen 6 mg/dL (9-20); Hemolysis Index 2
[2021-03-22] MEDS: D5W/0.9% NACL 1,000 ML IV SCH ×2 (07:09→18:24)
--- NOTE | 2021-03-22 07:44 | XRay Report ---
CHEST 1 VIEW 03/22/2021 6:36 AM INDICATION / CLINICAL INFORMATION: Left PTX. COMPARISON: 03/21/21 FINDINGS: SUPPORT DEVICES: Left pleural tube, left subclavian line, and esophagogastric tube are unchanged. HEART / MEDIASTINUM: Stable. LUNGS / PLEURA: Mild retrocardiac left lung base density likely represents atelectasis. Slight decrea se in size of left pneumothorax. ADDITIONAL FINDINGS: No significant additional findings. IMPRESSION: 1. Slight decrease in left pneumothorax. Signer Name: Germán Fox MD Signed: 03/22/2021 7:39 AM Workstation Name: [id number]
--- NOTE | 2021-03-22 07:44 | XRay Report ---
ABDOMEN 1 VIEW(S) INDICATION / CLINICAL INFORMATION: ileus. COMPARISON: None available. FINDINGS: TUBES / LINES: GI tube is barely visualized at the superior border of the film and appears unchanged terminating in the fundus of the stomach. Surgical drain is present in the left lower quadrant. BOWEL GAS PATTERN: Small bowel dilatation has decreased by 25% since 03/17/2021 exam. There is little gas in the colon. Partial small bowel obstruction is difficult to exclude. FREE AIR / EXTRALUMINAL GAS: None seen. ADDITIONAL FINDINGS: No significant additional findings. IMPRESSION: Mild improvement in gaseous distention of small bowel loops as described. Follow-up is recommended. Signer Name: Wale Cardenas Jr, MD Signed: 03/22/2021 7:40 AM Workstation Name: [id number]
[2021-03-22] MEDS: FAMOTIDINE 20 MG/2 ML INJ IV SCH ×2 (09:15→21:43)
[2021-03-22] MEDS: HEPARIN 5,000 UNIT/1 ML VIAL SUB-Q SCH ×2 (09:15→21:43)
[2021-03-22] MEDS ORDERED: cefTRIAXone/NS 2 GM/100 ML 2 GM/100 ML BAG IV SCH (15:00)
--- NOTE | 2021-03-22 17:00 | Progress Note ---
Assessment and Plan - Patient Problems (1) SBO (small bowel obstruction) Current Visit: Yes Status: Acute Plan to address problem: 1) CXR, KUB, CBC and BMP in the am 2) Continue C&S specific antibiotics 3) Continue NG to LIS 4) I asked nursing staff to better record NG output. Subjective Date of service: 03/22/21 Patient Reports: Positive: no new complaints, feels better, no flatus, no bowel movement Objective Vital Signs - 12hr 03/22/21 03/22/21 03/22/21 05:00 05:30 06:00 Temperature Pulse Rate 93 H 93 H Respiratory 20 13 35 H Rate Blood Pressure 139/90 145/89 137/89 O2 Sat by Pulse 99 98 99 Oximetry 03/22/21 03/22/21 03/22/21 06:30 07:00 07:30 Temperature Pulse Rate 88 86 85 Respiratory 18 14 15 Rate Blood Pressure 136/90 137/85 134/86 O2 Sat by Pulse 98 99 100 Oximetry 03/22/21 03/22/21 03/22/21 07:31 08:00 08:30 Temperature 99.5 F Pulse Rate 91 H 95 H Respiratory 21 17 Rate Blood Pressure 141/94 141/94 O2 Sat by Pulse 98 96 Oximetry 03/22/21 03/22/21 03/22/21 09:00 09:30 10:00 Temperature Pulse Rate 86 89 84 Respiratory Rate Blood Pressure 142/91 143/91 141/86 O2 Sat by Pulse 100 99 100 Oximetry 03/22/21 03/22/21 03/22/21 10:30 11:00 11:30 Temperature Pulse Rate 85 93 H 92 H Respiratory Rate Blood Pressure 140/90 147/94 144/95 O2 Sat by Pulse 99 100 98 Oximetry 03/22/21 03/22/21 03/22/21 12:00 12:30 13:00 Temperature Pulse Rate 90 95 H 89 Respiratory Rate Blood Pressure 138/92 149/97 140/93 O2 Sat by Pulse 98 98 99 Oximetry 03/22/21 03/22/21 03/22/21 13:30 14:00 14:30 Temperature Pulse Rate 90 91 H 87 Respiratory Rate Blood Pressure 142/93 148/94 140/86 O2 Sat by Pulse 99 99 96 Oximetry 03/22/21 03/22/21 03/22/21 15:00 15:30 15:58 Temperature 99.0 F Pulse Rate 92 H 90 Respiratory Rate Blood Pressure 160/86 139/92 O2 Sat by Pulse 95 100 Oximetry 03/22/21 16:00 Temperature Pulse Rate 91 H Respiratory Rate Blood Pressure 144/89 O2 Sat by Pulse 100 Oximetry - Abdomen soft, bowel sounds hypoactive, not distended, not rebound, not guarding (Appropriately TTP. BETH drainage is SS.) - Labs 03/22/21 05:30 03/22/21 05:30 Diabetes panel 03/22/21 Range/Units 05:30 Sodium 134 L (137-145) mmol/L Potassium 3.8 (3.6-5.0) mmol/L Chloride 100.8 (98-107) mmol/L Carbon Dioxide 24 (22-30) mmol/L BUN 6 L (9-20) mg/dL Creatinine 0.8 (0.8-1.3) mg/dL Glucose 120 H (75-100) mg/dL Calcium 8.0 L (8.4-10.2) mg/dL Calcium panel 03/22/21 Range/Units 05:30 Calcium 8.0 L (8.4-10.2) mg/dL Pituitary panel 03/22/21 Range/Units 05:30 Sodium 134 L (137-145) mmol/L Potassium 3.8 (3.6-5.0) mmol/L Chloride 100.8 (98-107) mmol/L Carbon Dioxide 24 (22-30) mmol/L BUN 6 L (9-20) mg/dL Creatinine 0.8 (0.8-1.3) mg/dL Glucose 120 H (75-100) mg/dL Calcium 8.0 L (8.4-10.2) mg/dL Adrenal panel 03/22/21 Range/Units 05:30 Sodium 134 L (137-145) mmol/L Potassium 3.8 (3.6-5.0) mmol/L Chloride 100.8 (98-107) mmol/L Carbon Dioxide 24 (22-30) mmol/L BUN 6 L (9-20) mg/dL Creatinine 0.8 (0.8-1.3) mg/dL Glucose 120 H (75-100) mg/dL Calcium 8.0 L (8.4-10.2) mg/dL - Imaging Chest x-ray: report reviewed, image reviewed Abdominal x-ray: report reviewed, image reviewed
--- NOTE | 2021-03-22 18:21 | Progress Note ---
Assessment and Plan Assessment and plan: High-grade severe small bowel obstruction with leukocytosis and low-grade fever at presentation Patient had the first episode about 3 months ago Patient did not seek medical attention, symptoms resolved after 4 days No known past medical or surgical history Hyponatremia likely from vomiting, resolved Laparotomy on 03/18 revealed pelvic abscess possibly from a ruptured appendix, IBD, awaiting histopathology report Surgical cultures growing E. coli sensitive to ceftriaxone, Levaquin and Zosyn Status post right hemicolectomy and ileocolic end-to-end anastomosis Leukocytosis resolving but low grade fever persists. Blood cultures negative, CXR shows atelectasis which could be causing the fever. Left pneumothorax with central line placement, s/p chest tube placement, pneumothorax improved but not resolved yet. Plan: Remains stable postoperatively, general surgery following closely Low-grade fever with pelvic abscess, infected cyst CXR, needs aggressive incentive spirometry No output from left chest tube Continue n.p.o. until bowel function returns Continue Zosyn empirically Continue IV fluids Continue NG suction Monitor WBC, electrolytes and renal function Pain medication and antiemetic as needed. Discussed with the patient, nursing staff History Interval history: Patient remains stable postop. No flatus or BM. Remains on NG suction. Left chest tube connected to Pleur-evac but no output. Has a low-grade fever but vital signs stable. Patient currently has no complaints. No significant abdominal pain. Nausea controlled. Hospitalist Physical - Constitutional Vitals: Temp Pulse Resp BP Pulse Ox 99.0 F 92 H 18 150/98 99 03/22/21 15:58 03/22/21 17:30 03/22/21 16:00 03/22/21 17:30 03/22/21 17:30 General appearance: Present: no acute distress, other (Alert and oriented, looks comfortable) - EENT Eyes: Present: PERRL, EOM intact ENT: clear oral mucosa, other (NG tube in place) - Neck Neck: Present: supple - Respiratory Respiratory effort: normal Respiratory: bilateral: diminished (Diminished breath sounds in the left thorax. Chest tube in place. No subcutaneous emphysema.) - Cardiovascular Rhythm: regular - Extremities Extremities: No edema - Abdominal General gastrointestinal: soft, non-tender, non-distended, absent bowel sounds, other (Dressings over surgical incision in place) - Integumentary Integumentary: Absent: jaundice, rash - Psychiatric Psychiatric: appropriate mood/affect - Neurologic Neurologic: no focal deficits Results - Labs CBC & Chem 7: 03/23/21 06:42 03/23/21 06:42 Labs: Laboratory Last Values WBC 9.2 K/mm3 (4.5-11.0) 03/22/21 05:30 RBC 2.71 M/mm3 (3.65-5.03) L 03/22/21 05:30 Hgb 9.4 gm/dl (11.8-15.2) L 03/22/21 05:30 Hct 26.6 % (35.5-45.6) L 03/22/21 05:30 MCV 98 fl (84-94) H 03/22/21 05:30 MCH 35 pg (28-32) H 03/22/21 05:30 MCHC 35 % (32-34) H 03/22/21 05:30 RDW 12.8 % (13.2-15.2) L 03/22/21 05:30 Plt Count 324 K/mm3 (140-440) 03/22/21 05:30 Lymph % (Auto) 14.0 % (13.4-35.0) 03/22/21 05:30 [place] % (Auto) 9.0 % (0.0-7.3) H 03/22/21 05:30 Eos % (Auto) 1.4 % (0.0-4.3) 03/22/21 05:30 Baso % (Auto) 1.0 % (0.0-1.8) 03/22/21 05:30 Lymph # (Auto) 1.3 K/mm3 (1.2-5.4) 03/22/21 05:30 [place] # (Auto) 0.8 K/mm3 (0.0-0.8) 03/22/21 05:30 Eos # (Auto) 0.1 K/mm3 (0.0-0.4) 03/22/21 05:30 Baso # (Auto) 0.1 K/mm3 (0.0-0.1) 03/22/21 05:30 Seg Neutrophils % 74.6 % (40.0-70.0) H 03/22/21 05:30 Seg Neutrophils # 6.9 K/mm3 (1.8-7.7) 03/22/21 05:30 Sodium 134 mmol/L (137-145) L 03/22/21 05:30 Potassium 3.8 mmol/L (3.6-5.0) 03/22/21 05:30 Chloride 100.8 mmol/L (98-107) 03/22/21 05:30 Carbon Dioxide 24 mmol/L (22-30) 03/22/21 05:30 Anion Gap 13 mmol/L 03/22/21 05:30 BUN 6 mg/dL (9-20) L 03/22/21 05:30 Creatinine 0.8 mg/dL (0.8-1.3) 03/22/21 05:30 Estimated GFR > 60 ml/min 03/22/21 05:30 BUN/Creatinine Ratio 8 % 03/22/21 05:30 Glucose 120 mg/dL (75-100) H 03/22/21 05:30 Calcium 8.0 mg/dL (8.4-10.2) L 03/22/21 05:30 Total Bilirubin 0.40 mg/dL (0.1-1.2) 03/21/21 11:03 AST 21 units/L (5-40) 03/21/21 11:03 ALT 17 units/L (7-56) 03/21/21 11:03 Alkaline Phosphatase 72 units/L (35-129) 03/21/21 11:03 Total Protein 5.8 g/dL (6.3-8.2) L 03/21/21 11:03 Albumin 2.3 g/dL (3.9-5) L 03/21/21 11:03 Albumin/Globulin Ratio 0.7 % 03/21/21 11:03 Lipase 262 units/L (13-60) H 03/17/21 14:09 Urine Color Yellow (Yellow) 03/18/21 Unknown Urine Turbidity Clear (Clear) 03/18/21 Unknown Urine pH 5.0 (5.0-7.0) 03/18/21 Unknown Ur Specific [place] 1.019 (1.003-1.030) 03/18/21 Unknown Urine Protein 30 mg/dl mg/dL (Negative) 03/18/21 Unknown Urine Glucose (UA) Neg mg/dL (Negative) 03/18/21 Unknown Urine Ketones 20 mg/dL (Negative) 03/18/21 Unknown Urine Blood Neg (Negative) 03/18/21 Unknown Urine Nitrite Neg (Negative) 03/18/21 Unknown Urine Bilirubin Neg (Negative) 03/18/21 Unknown Urine Urobilinogen 2.0 mg/dL (<2.0) 03/18/21 Unknown Ur Leukocyte Esterase Neg (Negative) 03/18/21 Unknown Urine WBC (Auto) 3.0 /HPF (0.0-6.0) 03/18/21 Unknown Urine RBC (Auto) 2.0 /HPF (0.0-6.0) 03/18/21 Unknown Urine Mucus Few /HPF 03/18/21 Unknown Coronavirus (PCR) Negative (Negative) 03/19/21 Unknown Microbiology: Microbiology 03/18/21 Unknown Abdomen Surgical Culture - Final Escherichia Coli 03/18/21 10:37 Peripheral/Venous Blood Culture - Preliminary NO GROWTH AFTER 4 DAYS 03/18/21 10:37 Peripheral/Venous Blood Culture - Preliminary NO GROWTH AFTER 4 DAYS 03/18/21 Unknown Abdomen Anaerobic Culture - Preliminary [place]/IV: Voiding Method Urinal Active Medications - Current Medications Current Medications: Generic Name Dose Route Start Last Admin Trade Name Freq PRN Reason Stop Dose Admin Acetaminophen 650 mg 03/17/21 22:33 Acetaminophen 325 Mg Tab PO Q4H PRN Pain MILD(1-3)/Fever >100.5/CHRISTIANSEN Acetaminophen 650 mg 03/17/21 22:41 Acetaminophen 650 Mg Rect Supp NC Q4H PRN Pain MILD(1-3)/Fever >100.5/CHRISTIANSEN Famotidine 20 mg 03/17/21 23:00 03/22/21 09:15 Famotidine 20 Mg/2 Ml Inj IV 20 mg BID PRASHANT Administration Heparin Sodium (Porcine) 5,000 unit 03/18/21 10:00 03/22/21 09:15 Heparin 5,000 Unit/1 Ml Vial SUB-Q 5,000 unit Q12HR PRASHANT Administration Hydromorphone HCl 0.5 mg 03/17/21 22:41 03/22/21 12:27 Hydromorphone 1 Mg/1 Ml Inj IV 0.5 mg Q3H PRN Administration Pain , Severe (7-10) Dextrose/Sodium Chloride 1,000 mls @ 125 mls/hr 03/17/21 23:00 03/22/21 07:09 D5ns IV 125 mls/hr DIRECT PRASHANT Administration Ceftriaxone Sodium 2 gm in 100 mls @ 200 mls/hr 03/22/21 22:00 Rocephin/Ns 2 Gm/100 Ml IV 03/26/21 22:29 Q24H PRASHANT Protocol Metoclopramide HCl 10 mg 03/17/21 22:33 Metoclopramide 10 Mg/2 Ml Inj IV Q6H PRN Nausea And Vomiting Morphine Sulfate 2 mg 03/17/21 22:41 03/22/21 16:07 Morphine 2 Mg/1 Ml Inj IV 2 mg Q4H PRN Administration Pain, Moderate (4-6) Ondansetron HCl 4 mg 03/17/21 22:33 03/18/21 16:30 Ondansetron 4 Mg/2 Ml Inj IV 4 mg Q8H PRN Administration Nausea And Vomiting Sodium Chloride 10 ml 03/17/21 22:33 Sodium Chloride 0.9% 10 Ml Flush Syringe IV PRN PRN LINE FLUSH Sodium Chloride 10 ml 03/18/21 10:00 03/22/21 09:15 Sodium Chloride 0.9% 10 Ml Flush Syringe IV 10 ml BID PRASHANT Administration Sodium Hypochlorite 1 applic 03/20/21 15:56 03/20/21 18:43 Sodium Hypochlorite, [place] Full Strength (0.5%) 473 Ml Topical Soln TP 1 applicatio Q12H PRN Administration Wound Care Nutrition/Malnutrition Assess - Dietary Evaluation Nutrition/Malnutrition Findings: Nutrition Notes Start: 03/19/21 11:28 Freq: Status: Active Protocol: Document 03/22/21 15:13 MEMO (Rec: 03/22/21 15:23 [facility] [id number]) Nutrition Notes Initial or Follow up Reassessment Current Diagnosis Small Bowel Obstruction Other Pertinent Diagnosis Pelvic abscess, (R) hemicolectomy, (L) pneumothorax Current Diet NPO Labs/Tests Na 134 Pertinent Medications Reviewed Height 6 ft 5 in Weight 71.2 kg [place] Body Weight (kg) 94.54 BMI 18.6 Weight Status Appropriate Subjective/Other Information Day 6 NPO. Pt is s/p chest tube placement. NGT to LIS. Minimum of two criteria No Energy Intake (severe) < or equal to 50% Estimated Energy Requirement > or equal to 5 days #1 Nutrition Diagnosis Altered GI function Etiology SBO, pelvic abscess s/p surgery As Evidenced by Signs and Symptoms pt been NPO for 6 days Is patient on ventilator? No Is Patient Ambulatory and/or Out of Bed No REE-([place]-confined to bed) 2113.848 Kcal/Kg value to use for calculation 32 Approximate Energy Requirements Using 2278 kcal/Kg Calculation Used for Recommendations Kcal/kg Additional Notes Pro needs 1.25-1.5g/k- 107g/day Fluid needs 1ml/kcal Nutrition Intervention Change Diet Order: Advance diet when medically feasible Nutrition Support: Start PN if unable to advance diet within next 24-48hrs Goal #1 Either advance diet or start PN to meet nutrient needs Goal #2 Wt maintenance and/or gain Follow-Up By: 03/24/21 Additional Comments F/U: diet advancement, PN consult
[2021-03-22] MEDS: SODIUM HYPOCHLORITE, DAKIN'S FULL STRENGTH (0.5%) 473 ML TOPICAL SOLN TP PRN (18:28)
[2021-03-22] MEDS: cefTRIAXone/NS 2 GM/100 ML 2 GM/100 ML BAG IV SCH (21:35)
[2021-03-23] MEDS: MORPHINE 2 MG/1 ML INJ IV PRN ×4 (02:11→22:31)
[2021-03-23] MEDS: D5W/0.9% NACL 1,000 ML IV SCH ×3 (02:33→18:36)
--- NOTE | 2021-03-23 03:33 | XRay Report ---
CHEST 1 VIEW 03/23/2021 1:22 AM INDICATION / CLINICAL INFORMATION: left pneumothorax. COMPARISON: 03/22/21 FINDINGS: SUPPORT DEVICES: Unchanged. Left pleural tube remains present. HEART / MEDIASTINUM: Stable. LUNGS / PLEURA: Left basilar retrocardiac density is unchanged. Small left pneumothorax has decreased in size. ADDITIONAL FINDINGS: No significant additional findings. IMPRESSION: 1. Slight decrease in left pneumothorax. Signer Name: Germán Fox MD Signed: 03/23/2021 3:29 AM Workstation Name: [id number]
--- NOTE | 2021-03-23 03:34 | XRay Report ---
ABDOMEN 1 VIEW 03/23/2021 1:22 AM INDICATION / CLINICAL INFORMATION: ileus. COMPARISON: 03/22/21 FINDINGS: TUBES / LINES: Surgical drain in the left hemipelvis is unchanged. BOWEL GAS PATTERN: Moderately dilated, gas-filled small bowel loops appear unchanged. FREE AIR / EXTRALUMINAL GAS: None. ADDITIONAL FINDINGS: Surgical suture in the right midabdomen is unchanged. IMPRESSION: 1. No change in moderately dilated small bowel. Signer Name: Germán Fox MD Signed: 03/23/2021 3:30 AM Workstation Name: [id number]
[2021-03-23] MEDS: HYDROmorphone 1 MG/1 ML INJ IV PRN ×3 (06:38→20:48)
[2021-03-23 07:25] LABS: Basophils % (Auto) 0.3 % (0.0-1.8); Eosinophils # (Auto) 0.1 K/mm3 (0.0-0.4); Eosinophils % (Auto) 1.3 % (0.0-4.3); Hematocrit 30.3 % (35.5-45.6); Hemoglobin 9.8 gm/dl (11.8-15.2); Lymphocytes # (Auto) 1.3 K/mm3 (1.2-5.4); Lymphocytes % (Auto) 11.9 % (13.4-35.0); Mean Corpuscular HGB Conc 32 % (32-34); Mean Corpuscular Volume 99 fl (84-94); Monocytes # (Auto) 1.2 K/mm3 (0.0-0.8); Monocytes % (Auto) 10.9 % (0.0-7.3); Platelet Count 408 K/mm3 (140-440); Red Blood Count 3.06 M/mm3 (3.65-5.03); Red Cell Distribution Width 12.6 % (13.2-15.2)
[2021-03-23 07:49] LABS: Blood Urea Nitrogen 5 mg/dL (9-20); Calcium 8.1 mg/dL (8.4-10.2); Hemolysis Index 3
[2021-03-23 07:50] LABS: BUN/Creatinine Ratio 8
--- NOTE | 2021-03-23 09:51 | Progress Note ---
Assessment and Plan - Patient Problems (1) SBO (small bowel obstruction) Current Visit: Yes Status: Acute Plan to address problem: 1) Continue NG to LIS 2) Continue broad spectrum antibiotics 3) Daily AXR, CXR, CBC and BMP 4) PT consult Subjective Date of service: 03/23/21 Patient Reports: Positive: no new complaints, feels better, no flatus, no bowel movement Objective Vital Signs - 12hr 03/22/21 03/22/21 03/22/21 22:00 22:10 22:30 Temperature Pulse Rate 91 H 88 92 H Pulse Rate [ From Monitor] Respiratory 20 20 31 H Rate Blood Pressure 143/86 143/86 143/86 O2 Sat by Pulse 100 97 95 Oximetry 03/22/21 03/22/21 03/23/21 23:00 23:30 00:00 Temperature 99.6 F Pulse Rate 90 92 H 88 Pulse Rate [ 91 H From Monitor] Respiratory 23 25 H 15 Rate Blood Pressure 148/92 148/92 145/94 O2 Sat by Pulse 100 100 100 Oximetry 03/23/21 03/23/21 03/23/21 00:30 01:00 01:30 Temperature Pulse Rate 85 90 79 Pulse Rate [ From Monitor] Respiratory 13 21 31 H Rate Blood Pressure 148/92 151/97 151/97 O2 Sat by Pulse 92 98 99 Oximetry 03/23/21 03/23/21 03/23/21 02:00 02:30 03:00 Temperature Pulse Rate 92 H 83 88 Pulse Rate [ From Monitor] Respiratory 25 H 15 17 Rate Blood Pressure 153/99 153/99 148/95 O2 Sat by Pulse 99 100 98 Oximetry 03/23/21 03/23/21 03/23/21 03:30 04:00 04:24 Temperature 98.2 F Pulse Rate 82 80 Pulse Rate [ 91 H From Monitor] Respiratory 15 14 Rate Blood Pressure 148/95 144/91 O2 Sat by Pulse 95 99 Oximetry 03/23/21 03/23/21 03/23/21 04:30 05:00 05:30 Temperature Pulse Rate 84 83 84 Pulse Rate [ From Monitor] Respiratory 15 14 15 Rate Blood Pressure 144/91 144/91 144/91 O2 Sat by Pulse 100 100 100 Oximetry 03/23/21 03/23/21 03/23/21 06:00 06:30 06:38 Temperature Pulse Rate 83 84 Pulse Rate [ From Monitor] Respiratory 15 13 14 Rate Blood Pressure 145/90 145/90 O2 Sat by Pulse 100 100 Oximetry 03/23/21 03/23/21 07:37 08:18 Temperature 98.9 F Pulse Rate Pulse Rate [ From Monitor] Respiratory Rate Blood Pressure O2 Sat by Pulse 100 Oximetry - Abdomen soft, bowel sounds hypoactive (Minimally TTP.), not distended, not rebound, not guarding - Labs 03/23/21 06:42 03/23/21 06:42 Diabetes panel 03/23/21 Range/Units 06:42 Sodium 134 L (137-145) mmol/L Potassium 3.6 (3.6-5.0) mmol/L Chloride 100.2 (98-107) mmol/L Carbon Dioxide 25 (22-30) mmol/L BUN 5 L (9-20) mg/dL Creatinine 0.6 L (0.8-1.3) mg/dL Glucose 105 H (75-100) mg/dL Calcium 8.1 L (8.4-10.2) mg/dL Calcium panel 03/23/21 Range/Units 06:42 Calcium 8.1 L (8.4-10.2) mg/dL Pituitary panel 03/23/21 Range/Units 06:42 Sodium 134 L (137-145) mmol/L Potassium 3.6 (3.6-5.0) mmol/L Chloride 100.2 (98-107) mmol/L Carbon Dioxide 25 (22-30) mmol/L BUN 5 L (9-20) mg/dL Creatinine 0.6 L (0.8-1.3) mg/dL Glucose 105 H (75-100) mg/dL Calcium 8.1 L (8.4-10.2) mg/dL Adrenal panel 03/23/21 Range/Units 06:42 Sodium 134 L (137-145) mmol/L Potassium 3.6 (3.6-5.0) mmol/L Chloride 100.2 (98-107) mmol/L Carbon Dioxide 25 (22-30) mmol/L BUN 5 L (9-20) mg/dL Creatinine 0.6 L (0.8-1.3) mg/dL Glucose 105 H (75-100) mg/dL Calcium 8.1 L (8.4-10.2) mg/dL - Imaging Chest x-ray: report reviewed, image reviewed Abdominal x-ray: report reviewed, image reviewed
[2021-03-23] MEDS: FAMOTIDINE 20 MG/2 ML INJ IV SCH ×2 (09:57→22:30)
[2021-03-23] MEDS: HEPARIN 5,000 UNIT/1 ML VIAL SUB-Q SCH ×2 (09:57→22:32)
--- NOTE | 2021-03-23 15:05 | Progress Note ---
Assessment and Plan Assessment and plan: High-grade severe small bowel obstruction with leukocytosis and low-grade fever at presentation Patient had the first episode about 3 months ago Patient did not seek medical attention, symptoms resolved after 4 days No known past medical or surgical history Hyponatremia likely from vomiting, resolved Laparotomy on 03/18 revealed pelvic abscess possibly from a ruptured appendix, IBD, awaiting histopathology report Surgical cultures growing E. coli sensitive to ceftriaxone, Levaquin and Zosyn Status post right hemicolectomy and ileocolic end-to-end anastomosis Leukocytosis resolving but low grade fever persists. Blood cultures negative, CXR shows atelectasis which could be causing the fever. Left pneumothorax with central line placement, s/p chest tube placement, pneumothorax improved but not resolved yet. Plan: Remains stable postoperatively, general surgery following closely Low-grade fever with pelvic abscess, infected cyst CXR, needs aggressive incentive spirometry No output from left chest tube Continue n.p.o. until bowel function returns Continue Zosyn empirically Continue IV fluids Continue NG suction Monitor WBC, electrolytes and renal function Pain medication and antiemetic as needed. Discussed with the patient, nursing staff 03/23: Continue supportive care. Continue wound management. Chest tube management per surgery. Pain control. Discussed with nursing staff at bedside History Interval history: Patient seen and examined today lethargic undergoing physical therapy by nursing staff. Chest tube still in place NG tube still in place. Hospitalist Physical - Physical exam Narrative exam: General appearance: Present: no acute distress, other (Alert and oriented, looks comfortable) - EENT Eyes: Present: PERRL, EOM intact ENT: clear oral mucosa, other (NG tube in place) - Neck Neck: Present: supple - Respiratory Respiratory effort: normal Respiratory: bilateral: diminished (Diminished breath sounds in the left thorax. Chest tube in place. No subcutaneous emphysema.) - Cardiovascular Rhythm: regular - Extremities Extremities: No edema - Abdominal General gastrointestinal: soft, non-tender, non-distended, absent bowel sounds, other (Dressings over surgical incision in place) - Integumentary Integumentary: Absent: jaundice, rash - Psychiatric Psychiatric: appropriate mood/affect - Neurologic Neurologic: no focal deficits - Constitutional Vitals: Temp Pulse Resp BP Pulse Ox 98.6 F 92 H 16 134/90 100 03/23/21 12:20 03/23/21 11:00 03/23/21 11:00 03/23/21 11:00 03/23/21 11:00 General appearance: Present: no acute distress, other (Alert and oriented, looks comfortable) Results - Labs CBC & Chem 7: 03/24/21 04:50 03/24/21 04:50 Labs: Laboratory Last Values WBC 10.7 K/mm3 (4.5-11.0) 03/23/21 06:42 RBC 3.06 M/mm3 (3.65-5.03) L 03/23/21 06:42 Hgb 9.8 gm/dl (11.8-15.2) L 03/23/21 06:42 Hct 30.3 % (35.5-45.6) L 03/23/21 06:42 MCV 99 fl (84-94) H 03/23/21 06:42 MCH 32 pg (28-32) 03/23/21 06:42 MCHC 32 % (32-34) 03/23/21 06:42 RDW 12.6 % (13.2-15.2) L 03/23/21 06:42 Plt Count 408 K/mm3 (140-440) 03/23/21 06:42 Lymph % (Auto) 11.9 % (13.4-35.0) L 03/23/21 06:42 [place] % (Auto) 10.9 % (0.0-7.3) H 03/23/21 06:42 Eos % (Auto) 1.3 % (0.0-4.3) 03/23/21 06:42 Baso % (Auto) 0.3 % (0.0-1.8) 03/23/21 06:42 Lymph # (Auto) 1.3 K/mm3 (1.2-5.4) 03/23/21 06:42 [place] # (Auto) 1.2 K/mm3 (0.0-0.8) H 03/23/21 06:42 Eos # (Auto) 0.1 K/mm3 (0.0-0.4) 03/23/21 06:42 Baso # (Auto) 0.0 K/mm3 (0.0-0.1) 03/23/21 06:42 Seg Neutrophils % 75.6 % (40.0-70.0) H 03/23/21 06:42 Seg Neutrophils # 8.1 K/mm3 (1.8-7.7) H 03/23/21 06:42 Sodium 134 mmol/L (137-145) L 03/23/21 06:42 Potassium 3.6 mmol/L (3.6-5.0) 03/23/21 06:42 Chloride 100.2 mmol/L (98-107) 03/23/21 06:42 Carbon Dioxide 25 mmol/L (22-30) 03/23/21 06:42 Anion Gap 12 mmol/L 03/23/21 06:42 BUN 5 mg/dL (9-20) L 03/23/21 06:42 Creatinine 0.6 mg/dL (0.8-1.3) L 03/23/21 06:42 Estimated GFR > 60 ml/min 03/23/21 06:42 BUN/Creatinine Ratio 8 % 03/23/21 06:42 Glucose 105 mg/dL (75-100) H 03/23/21 06:42 Calcium 8.1 mg/dL (8.4-10.2) L 03/23/21 06:42 Total Bilirubin 0.40 mg/dL (0.1-1.2) 03/21/21 11:03 AST 21 units/L (5-40) 03/21/21 11:03 ALT 17 units/L (7-56) 03/21/21 11:03 Alkaline Phosphatase 72 units/L (35-129) 03/21/21 11:03 Total Protein 5.8 g/dL (6.3-8.2) L 03/21/21 11:03 Albumin 2.3 g/dL (3.9-5) L 03/21/21 11:03 Albumin/Globulin Ratio 0.7 % 03/21/21 11:03 Lipase 262 units/L (13-60) H 03/17/21 14:09 Urine Color Yellow (Yellow) 03/18/21 Unknown Urine Turbidity Clear (Clear) 03/18/21 Unknown Urine pH 5.0 (5.0-7.0) 03/18/21 Unknown Ur Specific [place] 1.019 (1.003-1.030) 03/18/21 Unknown Urine Protein 30 mg/dl mg/dL (Negative) 03/18/21 Unknown Urine Glucose (UA) Neg mg/dL (Negative) 03/18/21 Unknown Urine Ketones 20 mg/dL (Negative) 03/18/21 Unknown Urine Blood Neg (Negative) 03/18/21 Unknown Urine Nitrite Neg (Negative) 03/18/21 Unknown Urine Bilirubin Neg (Negative) 03/18/21 Unknown Urine Urobilinogen 2.0 mg/dL (<2.0) 03/18/21 Unknown Ur Leukocyte Esterase Neg (Negative) 03/18/21 Unknown Urine WBC (Auto) 3.0 /HPF (0.0-6.0) 03/18/21 Unknown Urine RBC (Auto) 2.0 /HPF (0.0-6.0) 03/18/21 Unknown Urine Mucus Few /HPF 03/18/21 Unknown Coronavirus (PCR) Negative (Negative) 03/19/21 Unknown Microbiology: Microbiology 03/18/21 10:37 Peripheral/Venous Blood Culture - Final NO GROWTH AFTER 5 DAYS 03/18/21 10:37 Peripheral/Venous Blood Culture - Final NO GROWTH AFTER 5 DAYS 03/18/21 Unknown Abdomen Surgical Culture - Final Escherichia Coli [place]/IV: Voiding Method Urinal Active Medications - Current Medications Current Medications: Generic Name Dose Route Start Last Admin Trade Name Freq PRN Reason Stop Dose Admin Acetaminophen 650 mg 03/17/21 22:33 Acetaminophen 325 Mg Tab PO Q4H PRN Pain MILD(1-3)/Fever >100.5/CHRISTIANSEN Acetaminophen 650 mg 03/17/21 22:41 03/22/21 22:20 Acetaminophen 650 Mg Rect Supp [place] 650 mg Q4H PRN Administration Pain MILD(1-3)/Fever >100.5/CHRISTIANSEN Famotidine 20 mg 03/17/21 23:00 03/23/21 09:57 Famotidine 20 Mg/2 Ml Inj IV 20 mg BID PRASHANT Administration Heparin Sodium (Porcine) 5,000 unit 03/18/21 10:00 03/23/21 09:57 Heparin 5,000 Unit/1 Ml Vial SUB-Q 5,000 unit Q12HR PRASHANT Administration Hydromorphone HCl 0.5 mg 03/17/21 22:41 03/23/21 06:38 Hydromorphone 1 Mg/1 Ml Inj IV 0.5 mg Q3H PRN Administration Pain , Severe (7-10) Dextrose/Sodium Chloride 1,000 mls @ 125 mls/hr 03/17/21 23:00 11/09/21 10:00 D5ns IV 125 mls/hr DIRECT PRASHANT Administration Ceftriaxone Sodium 2 gm in 100 mls @ 200 mls/hr 03/22/21 22:00 03/22/21 21:35 Rocephin/Ns 2 Gm/100 Ml IV 03/26/21 22:29 200 mls/hr Q24H PRASHANT Administration Protocol Metoclopramide HCl 10 mg 03/17/21 22:33 Metoclopramide 10 Mg/2 Ml Inj IV Q6H PRN Nausea And Vomiting Morphine Sulfate 2 mg 03/17/21 22:41 03/23/21 10:00 Morphine 2 Mg/1 Ml Inj IV 2 mg Q4H PRN Administration Pain, Moderate (4-6) Ondansetron HCl 4 mg 03/17/21 22:33 03/18/21 16:30 Ondansetron 4 Mg/2 Ml Inj IV 4 mg Q8H PRN Administration Nausea And Vomiting Sodium Chloride 10 ml 03/17/21 22:33 Sodium Chloride 0.9% 10 Ml Flush Syringe IV PRN PRN LINE FLUSH Sodium Chloride 10 ml 03/18/21 10:00 03/23/21 09:57 Sodium Chloride 0.9% 10 Ml Flush Syringe IV 10 ml BID PRASHANT Administration Sodium Hypochlorite 1 applic 03/23/21 17:00 Sodium Hypochlorite, Dakin's Full Strength (0.5%) 473 Ml Topical Soln TP Q12H PRASHANT Nutrition/Malnutrition Assess - Dietary Evaluation Nutrition/Malnutrition Findings: Nutrition Notes Start: 03/19/21 11:28 Freq: Status: Active Protocol: Document 03/22/21 15:13 MEMO (Rec: 03/22/21 15:23 [facility] [id number]) Nutrition Notes Initial or Follow up Reassessment Current Diagnosis Small Bowel Obstruction Other Pertinent Diagnosis Pelvic abscess, (R) hemicolectomy, (L) pneumothorax Current Diet NPO Labs/Tests Na 134 Pertinent Medications Reviewed Height 6 ft 5 in Weight 71.2 kg [place] Body Weight (kg) 94.54 BMI 18.6 Weight Status Appropriate Subjective/Other Information Day 6 NPO. Pt is s/p chest tube placement. NGT to LIS. Minimum of two criteria No Energy Intake (severe) < or equal to 50% Estimated Energy Requirement > or equal to 5 days #1 Nutrition Diagnosis Altered GI function Etiology SBO, pelvic abscess s/p surgery As Evidenced by Signs and Symptoms pt been NPO for 6 days Is patient on ventilator? No Is Patient Ambulatory and/or Out of Bed No REE-([facility]-confined to bed) 2113.848 Kcal/Kg value to use for calculation 32 Approximate Energy Requirements Using 2278 kcal/Kg Calculation Used for Recommendations Kcal/kg Additional Notes Pro needs 1.25-1.5g/k- 107g/day Fluid needs 1ml/kcal Nutrition Intervention Change Diet Order: Advance diet when medically feasible Nutrition Support: Start PN if unable to advance diet within next 24-48hrs Goal #1 Either advance diet or start PN to meet nutrient needs Goal #2 Wt maintenance and/or gain Follow-Up By: 03/24/21 Additional Comments F/U: diet advancement, PN consult
[2021-03-23] MEDS: SODIUM HYPOCHLORITE, DAKIN'S FULL STRENGTH (0.5%) 473 ML TOPICAL SOLN TP SCH (18:36)
[2021-03-23] MEDS: METOCLOPRAMIDE 10 MG/2 ML INJ IV PRN (22:30)
[2021-03-23] MEDS: cefTRIAXone/NS 2 GM/100 ML 2 GM/100 ML BAG IV SCH (22:30)
[2021-03-24] MEDS: HYDROmorphone 1 MG/1 ML INJ IV PRN ×5 (01:14→21:09)
--- NOTE | 2021-03-24 04:38 | XRay Report ---
ABDOMEN 1 VIEW 03/24/2021 3:18 AM INDICATION / CLINICAL INFORMATION: ileus. COMPARISON: 03/23/21 FINDINGS: TUBES / LINES: Surgical drain in the left hemipelvis is unchanged. BOWEL GAS PATTERN: Moderately dilated small bowel loops are unchanged. FREE AIR / EXTRALUMINAL GAS: None. ADDITIONAL FINDINGS: No significant additional findings. IMPRESSION: 1. No significant change. Signer Name: Germán Fox MD Signed: 03/24/2021 4:34 AM Workstation Name: [id number]
--- NOTE | 2021-03-24 04:39 | XRay Report ---
CHEST 1 VIEW 03/24/2021 3:18 AM INDICATION / CLINICAL INFORMATION: Left Ptx. COMPARISON: 03/23/21 FINDINGS: SUPPORT DEVICES: Unchanged. HEART / MEDIASTINUM: Stable. LUNGS / PLEURA: Left basilar density is unchanged. Small left pneumothorax continues to decrease in s ize. No pneumothorax. ADDITIONAL FINDINGS: No significant additional findings. IMPRESSION: 1. Decrease in left pneumothorax. Signer Name: Germán Fox MD Signed: 03/24/2021 4:35 AM Workstation Name: [id number]
[2021-03-24] MEDS: D5W/0.9% NACL 1,000 ML IV SCH ×3 (04:49→17:13)
[2021-03-24] MEDS: SODIUM HYPOCHLORITE, DAKIN'S FULL STRENGTH (0.5%) 473 ML TOPICAL SOLN TP SCH ×2 (04:49→19:34)
[2021-03-24 05:40] LABS: Basophils % (Auto) 0.3 % (0.0-1.8); Eosinophils # (Auto) 0.1 K/mm3 (0.0-0.4); Hematocrit 29.2 % (35.5-45.6); Hemoglobin 9.7 gm/dl (11.8-15.2); Lymphocytes # (Auto) 1.6 K/mm3 (1.2-5.4); Lymphocytes % (Auto) 15.5 % (13.4-35.0); Mean Corpuscular HGB Conc 33 % (32-34); Mean Corpuscular Volume 99 fl (84-94); Monocytes # (Auto) 1.2 K/mm3 (0.0-0.8); Platelet Count 411 K/mm3 (140-440); Red Blood Count 2.94 M/mm3 (3.65-5.03); Red Cell Distribution Width 12.8 % (13.2-15.2)
[2021-03-24 05:54] LABS: BUN/Creatinine Ratio 6; Blood Urea Nitrogen 5 mg/dL (9-20); Calcium 8.4 mg/dL (8.4-10.2); Hemolysis Index 0
[2021-03-24] MEDS: MORPHINE 2 MG/1 ML INJ IV PRN ×2 (08:34→15:42)
--- NOTE | 2021-03-24 09:48 | XRay Report ---
ABDOMEN 1 VIEW(S) INDICATION / CLINICAL INFORMATION: Check NG tip position. COMPARISON: 03/24/2021 FINDINGS: TUBES / LINES: NG tube tip in the proximal stomach. A surgical drain remains in the pelvis. BOWEL GAS PATTERN: Multiple dilated gas-filled small bowel loops without gas clearly seen in the colo n. FREE AIR / EXTRALUMINAL GAS: None seen. ADDITIONAL FINDINGS: No significant additional findings. IMPRESSION: 1. NGT in the proximal stomach and surgical drain in the mid pelvis. 2. Persistent abnormal bowel gas pattern most likely representing postoperative ileus. Signer Name: Krystian Velásquez MD Signed: 03/24/2021 9:43 AM Workstation Name: [id number]
[2021-03-24] MEDS: HEPARIN 5,000 UNIT/1 ML VIAL SUB-Q SCH ×2 (10:16→23:45)
[2021-03-24] MEDS: FAMOTIDINE 20 MG/2 ML INJ IV SCH ×2 (10:16→21:09)
--- NOTE | 2021-03-24 16:16 | Progress Note ---
Assessment and Plan - Patient Problems (1) SBO (small bowel obstruction) Current Visit: Yes Status: Acute Plan to address problem: 1) Daily CXR, AXR, CBC & BMP 2) Continue NG 3) PT consult 4) Hospitalist to begin TPN Subjective Date of service: 03/24/21 Patient Reports: Positive: no new complaints, feels better, pain is less, no flatus, no bowel movement Objective Vital Signs - 12hr 03/24/21 03/24/21 03/24/21 04:43 05:00 05:13 Temperature Pulse Rate 82 Pulse Rate [ From Monitor] Respiratory 17 11 L 16 Rate Blood Pressure 144/85 O2 Sat by Pulse 99 Oximetry 03/24/21 03/24/21 03/24/21 06:00 07:00 07:52 Temperature 98.7 F Pulse Rate 83 108 H Pulse Rate [ From Monitor] Respiratory 15 22 Rate Blood Pressure 141/90 149/99 O2 Sat by Pulse 100 100 Oximetry 03/24/21 03/24/21 03/24/21 08:00 09:00 10:00 Temperature Pulse Rate 86 87 87 Pulse Rate [ 90 From Monitor] Respiratory 18 16 21 Rate Blood Pressure 139/86 133/86 138/90 O2 Sat by Pulse 100 100 100 Oximetry 03/24/21 03/24/21 03/24/21 11:00 12:00 13:00 Temperature 98.5 F Pulse Rate 87 85 84 Pulse Rate [ 92 H From Monitor] Respiratory 23 18 14 Rate Blood Pressure 132/83 140/82 144/83 O2 Sat by Pulse 100 98 100 Oximetry 03/24/21 03/24/21 14:00 15:00 Temperature Pulse Rate 95 H 89 Pulse Rate [ From Monitor] Respiratory 15 15 Rate Blood Pressure 135/80 144/88 O2 Sat by Pulse 100 99 Oximetry - Abdomen soft, bowel sounds hypoactive, not distended, not rebound, not guarding - Labs 03/24/21 04:50 03/24/21 04:50 Diabetes panel 03/24/21 Range/Units 04:50 Sodium 138 (137-145) mmol/L Potassium 3.5 L (3.6-5.0) mmol/L Chloride 102.5 (98-107) mmol/L Carbon Dioxide 26 (22-30) mmol/L BUN 5 L (9-20) mg/dL Creatinine 0.8 (0.8-1.3) mg/dL Glucose 98 (75-100) mg/dL Calcium 8.4 (8.4-10.2) mg/dL Calcium panel 03/24/21 Range/Units 04:50 Calcium 8.4 (8.4-10.2) mg/dL Pituitary panel 03/24/21 Range/Units 04:50 Sodium 138 (137-145) mmol/L Potassium 3.5 L (3.6-5.0) mmol/L Chloride 102.5 (98-107) mmol/L Carbon Dioxide 26 (22-30) mmol/L BUN 5 L (9-20) mg/dL Creatinine 0.8 (0.8-1.3) mg/dL Glucose 98 (75-100) mg/dL Calcium 8.4 (8.4-10.2) mg/dL Adrenal panel 03/24/21 Range/Units 04:50 Sodium 138 (137-145) mmol/L Potassium 3.5 L (3.6-5.0) mmol/L Chloride 102.5 (98-107) mmol/L Carbon Dioxide 26 (22-30) mmol/L BUN 5 L (9-20) mg/dL Creatinine 0.8 (0.8-1.3) mg/dL Glucose 98 (75-100) mg/dL Calcium 8.4 (8.4-10.2) mg/dL - Imaging Chest x-ray: report reviewed, image reviewed Abdominal x-ray: report reviewed, image reviewed
--- NOTE | 2021-03-24 16:24 | Progress Note ---
Assessment and Plan Assessment and plan: High-grade severe small bowel obstruction with leukocytosis and low-grade fever at presentation Patient had the first episode about 3 months ago Patient did not seek medical attention, symptoms resolved after 4 days No known past medical or surgical history Hyponatremia likely from vomiting, resolved Laparotomy on 03/18 revealed pelvic abscess possibly from a ruptured appendix, IBD, awaiting histopathology report Surgical cultures growing E. coli sensitive to ceftriaxone, Levaquin and Zosyn Status post right hemicolectomy and ileocolic end-to-end anastomosis Leukocytosis resolving but low grade fever persists. Blood cultures negative, CXR shows atelectasis which could be causing the fever. Left pneumothorax with central line placement, s/p chest tube placement, pneumothorax improved but not resolved yet. Plan: Remains stable postoperatively, general surgery following closely Low-grade fever with pelvic abscess, infected cyst CXR, needs aggressive incentive spirometry No output from left chest tube Continue n.p.o. until bowel function returns Continue Zosyn empirically Continue IV fluids Continue NG suction Monitor WBC, electrolytes and renal function Pain medication and antiemetic as needed. Discussed with the patient, nursing staff 03/23: Continue supportive care. Continue wound management. Chest tube management per surgery. Pain control. Discussed with nursing staff at bedside 03/24: KUB still shows persistent ileus. Dietitian consulted for TPN initiation. Continue supportive care we will downgrade to telemetry History Interval history: Patient seen and examined today wants to know when the NG tube will come out. Hospitalist Physical - Physical exam Narrative exam: General appearance: Present: no acute distress, other (Alert and oriented, looks comfortable) - EENT Eyes: Present: PERRL, EOM intact ENT: clear oral mucosa, other (NG tube in place) - Neck Neck: Present: supple - Respiratory Respiratory effort: normal Respiratory: bilateral: diminished (Diminished breath sounds in the left thorax. Chest tube in place. No subcutaneous emphysema.) - Cardiovascular Rhythm: regular - Extremities Extremities: No edema - Abdominal General gastrointestinal: soft, non-tender, non-distended, absent bowel sounds, other (Dressings over surgical incision in place) - Integumentary Integumentary: Absent: jaundice, rash - Psychiatric Psychiatric: appropriate mood/affect - Neurologic Neurologic: no focal deficits - Constitutional Vitals: Temp Pulse Resp BP Pulse Ox 98.5 F 89 15 144/88 99 03/24/21 12:00 03/24/21 15:00 03/24/21 15:00 03/24/21 15:00 03/24/21 15:00 General appearance: Present: no acute distress, other (Alert and oriented, looks comfortable) Results - Labs CBC & Chem 7: 03/24/21 04:50 03/24/21 04:50 Labs: Laboratory Last Values WBC 10.6 K/mm3 (4.5-11.0) 03/24/21 04:50 RBC 2.94 M/mm3 (3.65-5.03) L 03/24/21 04:50 Hgb 9.7 gm/dl (11.8-15.2) L 03/24/21 04:50 Hct 29.2 % (35.5-45.6) L 03/24/21 04:50 MCV 99 fl (84-94) H 03/24/21 04:50 MCH 33 pg (28-32) H 03/24/21 04:50 MCHC 33 % (32-34) 03/24/21 04:50 RDW 12.8 % (13.2-15.2) L 03/24/21 04:50 Plt Count 411 K/mm3 (140-440) 03/24/21 04:50 Lymph % (Auto) 15.5 % (13.4-35.0) 03/24/21 04:50 [place] % (Auto) 11.0 % (0.0-7.3) H 03/24/21 04:50 Eos % (Auto) 1.0 % (0.0-4.3) 03/24/21 04:50 Baso % (Auto) 0.3 % (0.0-1.8) 03/24/21 04:50 Lymph # (Auto) 1.6 K/mm3 (1.2-5.4) 03/24/21 04:50 [place] # (Auto) 1.2 K/mm3 (0.0-0.8) H 03/24/21 04:50 Eos # (Auto) 0.1 K/mm3 (0.0-0.4) 03/24/21 04:50 Baso # (Auto) 0.0 K/mm3 (0.0-0.1) 03/24/21 04:50 Seg Neutrophils % 72.2 % (40.0-70.0) H 03/24/21 04:50 Seg Neutrophils # 7.7 K/mm3 (1.8-7.7) 03/24/21 04:50 Sodium 138 mmol/L (137-145) 03/24/21 04:50 Potassium 3.5 mmol/L (3.6-5.0) L 03/24/21 04:50 Chloride 102.5 mmol/L (98-107) 03/24/21 04:50 Carbon Dioxide 26 mmol/L (22-30) 03/24/21 04:50 Anion Gap 13 mmol/L 03/24/21 04:50 BUN 5 mg/dL (9-20) L 03/24/21 04:50 Creatinine 0.8 mg/dL (0.8-1.3) 03/24/21 04:50 Estimated GFR > 60 ml/min 03/24/21 04:50 BUN/Creatinine Ratio 6 % 03/24/21 04:50 Glucose 98 mg/dL (75-100) 03/24/21 04:50 Calcium 8.4 mg/dL (8.4-10.2) 03/24/21 04:50 Total Bilirubin 0.40 mg/dL (0.1-1.2) 03/21/21 11:03 AST 21 units/L (5-40) 03/21/21 11:03 ALT 17 units/L (7-56) 03/21/21 11:03 Alkaline Phosphatase 72 units/L (35-129) 03/21/21 11:03 Total Protein 5.8 g/dL (6.3-8.2) L 03/21/21 11:03 Albumin 2.3 g/dL (3.9-5) L 03/21/21 11:03 Albumin/Globulin Ratio 0.7 % 03/21/21 11:03 Lipase 262 units/L (13-60) H 03/17/21 14:09 Urine Color Yellow (Yellow) 03/18/21 Unknown Urine Turbidity Clear (Clear) 03/18/21 Unknown Urine pH 5.0 (5.0-7.0) 03/18/21 Unknown Ur Specific [place] 1.019 (1.003-1.030) 03/18/21 Unknown Urine Protein 30 mg/dl mg/dL (Negative) 03/18/21 Unknown Urine Glucose (UA) Neg mg/dL (Negative) 03/18/21 Unknown Urine Ketones 20 mg/dL (Negative) 03/18/21 Unknown Urine Blood Neg (Negative) 03/18/21 Unknown Urine Nitrite Neg (Negative) 03/18/21 Unknown Urine Bilirubin Neg (Negative) 03/18/21 Unknown Urine Urobilinogen 2.0 mg/dL (<2.0) 03/18/21 Unknown Ur Leukocyte Esterase Neg (Negative) 03/18/21 Unknown Urine WBC (Auto) 3.0 /HPF (0.0-6.0) 03/18/21 Unknown Urine RBC (Auto) 2.0 /HPF (0.0-6.0) 03/18/21 Unknown Urine Mucus Few /HPF 03/18/21 Unknown Coronavirus (PCR) Negative (Negative) 03/19/21 Unknown Microbiology: Microbiology 03/18/21 10:37 Peripheral/Venous Blood Culture - Final NO GROWTH AFTER 5 DAYS 03/18/21 10:37 Peripheral/Venous Blood Culture - Final NO GROWTH AFTER 5 DAYS [place]aran[place]/IV: Voiding Method Urinal Active Medications - Current Medications Current Medications: Generic Name Dose Route Start Last Admin Trade Name Freq PRN Reason Stop Dose Admin Acetaminophen 650 mg 03/17/21 22:33 Acetaminophen 325 Mg Tab PO Q4H PRN Pain MILD(1-3)/Fever >100.5/CHRISTIANSEN Acetaminophen 650 mg 03/17/21 22:41 03/22/21 22:20 Acetaminophen 650 Mg Rect Supp [place] 650 mg Q4H PRN Administration Pain MILD(1-3)/Fever >100.5/CHRISTIANSEN Famotidine 20 mg 03/17/21 23:00 03/24/21 10:16 Famotidine 20 Mg/2 Ml Inj IV 20 mg BID PRASHANT Administration Heparin Sodium (Porcine) 5,000 unit 03/18/21 10:00 03/24/21 10:16 Heparin 5,000 Unit/1 Ml Vial SUB-Q 5,000 unit Q12HR PRASHANT Administration Hydromorphone HCl 0.5 mg 03/17/21 22:41 03/24/21 12:10 Hydromorphone 1 Mg/1 Ml Inj IV 0.5 mg Q3H PRN Administration Pain , Severe (7-10) Dextrose/Sodium Chloride 1,000 mls @ 125 mls/hr 03/17/21 23:00 03/24/21 10:16 D5ns IV 125 mls/hr DIRECT PRASHANT Administration Ceftriaxone Sodium 2 gm in 100 mls @ 200 mls/hr 03/22/21 22:00 03/23/21 22:30 Rocephin/Ns 2 Gm/100 Ml IV 03/26/21 22:29 200 mls/hr Q24H PRASHANT Administration Protocol Metoclopramide HCl 10 mg 03/17/21 22:33 03/23/21 22:30 Metoclopramide 10 Mg/2 Ml Inj IV 10 mg Q6H PRN Administration Nausea And Vomiting Morphine Sulfate 2 mg 03/17/21 22:41 03/24/21 15:42 Morphine 2 Mg/1 Ml Inj IV 2 mg Q4H PRN Administration Pain, Moderate (4-6) Ondansetron HCl 4 mg 03/17/21 22:33 03/18/21 16:30 Ondansetron 4 Mg/2 Ml Inj IV 4 mg Q8H PRN Administration Nausea And Vomiting Sodium Chloride 10 ml 03/17/21 22:33 03/24/21 01:15 Sodium Chloride 0.9% 10 Ml Flush Syringe IV 10 ml PRN PRN Administration LINE FLUSH Sodium Chloride 10 ml 03/18/21 10:00 03/24/21 10:17 Sodium Chloride 0.9% 10 Ml Flush Syringe IV 10 ml BID PRASHANT Administration Sodium Hypochlorite 1 applic 03/23/21 17:00 03/24/21 04:49 Sodium Hypochlorite, Dakin's Full Strength (0.5%) 473 Ml Topical Soln TP 1 applicatio Q12H PRASHANT Administration Nutrition/Malnutrition Assess - Dietary Evaluation Nutrition/Malnutrition Findings: Nutrition Notes Start: 03/19/21 11:28 Freq: Status: Active Protocol: Document 03/22/21 15:13 MEMO (Rec: 03/22/21 15:23 MEMO [id number]) Nutrition Notes Initial or Follow up Reassessment Current Diagnosis Small Bowel Obstruction Other Pertinent Diagnosis Pelvic abscess, (R) hemicolectomy, (L) pneumothorax Current Diet NPO Labs/Tests Na 134 Pertinent Medications Reviewed Height 6 ft 5 in Weight 71.2 kg [place] Body Weight (kg) 94.54 BMI 18.6 Weight Status Appropriate Subjective/Other Information Day 6 NPO. Pt is s/p chest tube placement. NGT to LIS. Minimum of two criteria No Energy Intake (severe) < or equal to 50% Estimated Energy Requirement > or equal to 5 days #1 Nutrition Diagnosis Altered GI function Etiology SBO, pelvic abscess s/p surgery As Evidenced by Signs and Symptoms pt been NPO for 6 days Is patient on ventilator? No Is Patient Ambulatory and/or Out of Bed No REE-([facility]-confined to bed) 2113.848 Kcal/Kg value to use for calculation 32 Approximate Energy Requirements Using 2278 kcal/Kg Calculation Used for Recommendations Kcal/kg Additional Notes Pro needs 1.25-1.5g/k- 107g/day Fluid needs 1ml/kcal Nutrition Intervention Change Diet Order: Advance diet when medically feasible Nutrition Support: Start PN if unable to advance diet within next 24-48hrs Goal #1 Either advance diet or start PN to meet nutrient needs Goal #2 Wt maintenance and/or gain Follow-Up By: 03/24/21 Additional Comments F/U: diet advancement, PN consult
[2021-03-24] MEDS: METOCLOPRAMIDE 10 MG/2 ML INJ IV PRN (17:12)
[2021-03-24] MEDS ORDERED: CAL IV SCH (20:00)
[2021-03-24] MEDS ORDERED: AMINO AC IV SCH (20:00)
[2021-03-24] MEDS ORDERED: LYTES IV SCH (20:00)
[2021-03-24] MEDS ORDERED: DEX IV SCH (20:00)
[2021-03-24] MEDS: cefTRIAXone/NS 2 GM/100 ML 2 GM/100 ML BAG IV SCH (21:08)
[2021-03-24] MEDS: ONDANSETRON 4 MG/2 ML INJ IV PRN (21:09)
[2021-03-25] MEDS: HYDROmorphone 1 MG/1 ML INJ IV PRN ×6 (01:21→21:22)
[2021-03-25] MEDS: METOCLOPRAMIDE 10 MG/2 ML INJ IV PRN ×2 (01:22→09:48)
[2021-03-25] MEDS: ONDANSETRON 4 MG/2 ML INJ IV PRN (04:54)
[2021-03-25] MEDS: D5W/0.9% NACL 1,000 ML IV SCH ×2 (04:54→17:32)
[2021-03-25] MEDS: SODIUM HYPOCHLORITE, DAKIN'S FULL STRENGTH (0.5%) 473 ML TOPICAL SOLN TP SCH ×2 (04:56→17:25)
[2021-03-25 07:08] LABS: Basophils # (Auto) 0.1 K/mm3 (0.0-0.1); Basophils % (Auto) 0.5 % (0.0-1.8); Eosinophils # (Auto) 0.1 K/mm3 (0.0-0.4); Eosinophils % (Auto) 1.2 % (0.0-4.3); Hematocrit 28.9 % (35.5-45.6); Hemoglobin 9.3 gm/dl (11.8-15.2); Lymphocytes # (Auto) 1.2 K/mm3 (1.2-5.4); Lymphocytes % (Auto) 12.7 % (13.4-35.0); Mean Corpuscular HGB Conc 32 % (32-34); Mean Corpuscular Volume 99 fl (84-94); Monocytes % (Auto) 10.3 % (0.0-7.3); Platelet Count 422 K/mm3 (140-440); Red Blood Count 2.93 M/mm3 (3.65-5.03); Red Cell Distribution Width 12.7 % (13.2-15.2)
[2021-03-25 07:21] LABS: Blood Urea Nitrogen 5 mg/dL (9-20); Calcium 8.5 mg/dL (8.4-10.2); Hemolysis Index 7
[2021-03-25 07:25] LABS: BUN/Creatinine Ratio 7
[2021-03-25] MEDS: FAMOTIDINE 20 MG/2 ML INJ IV SCH ×2 (09:45→21:27)
[2021-03-25] MEDS: HEPARIN 5,000 UNIT/1 ML VIAL SUB-Q SCH ×2 (09:45→21:27)
[2021-03-25 12:07] LABS: Alanine Aminotransferase 16 units/L (7-56); Albumin 2.4 g/dL (3.9-5)
[2021-03-25 12:19] LABS: Bilirubin,Direct < 0.2 mg/dL (0-0.2)
--- NOTE | 2021-03-25 14:47 | Progress Note ---
Assessment and Plan Assessment and plan: High-grade severe small bowel obstruction with leukocytosis and low-grade fever at presentation Patient had the first episode about 3 months ago Patient did not seek medical attention, symptoms resolved after 4 days No known past medical or surgical history Hyponatremia likely from vomiting, resolved Laparotomy on 03/18 revealed pelvic abscess possibly from a ruptured appendix, IBD, awaiting histopathology report Surgical cultures growing E. coli sensitive to ceftriaxone, Levaquin and Zosyn Status post right hemicolectomy and ileocolic end-to-end anastomosis Leukocytosis resolving but low grade fever persists. Blood cultures negative, CXR shows atelectasis which could be causing the fever. Left pneumothorax with central line placement, s/p chest tube placement, pneumothorax improved but not resolved yet. Plan: Remains stable postoperatively, general surgery following closely Low-grade fever with pelvic abscess, infected cyst CXR, needs aggressive incentive spirometry No output from left chest tube Continue n.p.o. until bowel function returns Continue Zosyn empirically Continue IV fluids Continue NG suction Monitor WBC, electrolytes and renal function Pain medication and antiemetic as needed. Discussed with the patient, nursing staff 03/23: Continue supportive care. Continue wound management. Chest tube management per surgery. Pain control. Discussed with nursing staff at bedside 03/24: KUB still shows persistent ileus. Dietitian consulted for TPN initiation. Continue supportive care we will downgrade to telemetry 03/25: Patient seen and examined this morning had some increased output from the NG tube that was more dark in concentration hemoglobin remained stable but concerning that there may be some coffee-ground emesis. Will monitor H&H this afternoon to see if there is any further drop. Will await surgical reevaluation. I will hold heparin for now. Chest tube remains in place. Wound care management discussed with nursing staff. Continue pain control History Interval history: Patient seen and examined today wants to know when the NG tube will come out. Hospitalist Physical - Physical exam Narrative exam: General appearance: Present: no acute distress, other (Alert and oriented, looks comfortable) - EENT Eyes: Present: PERRL, EOM intact ENT: clear oral mucosa, other (NG tube in place) - Neck Neck: Present: supple - Respiratory Respiratory effort: normal Respiratory: bilateral: diminished (Diminished breath sounds in the left thorax. Chest tube in place. No subcutaneous emphysema.) - Cardiovascular Rhythm: regular - Extremities Extremities: No edema - Abdominal General gastrointestinal: soft, non-tender, non-distended, absent bowel sounds, other (Dressings over surgical incision in place) - Integumentary Integumentary: Absent: jaundice, rash - Psychiatric Psychiatric: appropriate mood/affect - Neurologic Neurologic: no focal deficits - Constitutional Vitals: Temp Pulse Resp BP Pulse Ox 98.3 F 89 20 158/95 98 03/25/21 12:02 03/25/21 12:02 03/25/21 12:02 03/25/21 12:02 03/25/21 12:02 General appearance: Present: no acute distress, other (Alert and oriented, looks comfortable) Results - Labs CBC & Chem 7: 03/25/21 05:27 03/25/21 05:27 Labs: Laboratory Last Values WBC 9.5 K/mm3 (4.5-11.0) 03/25/21 05:27 RBC 2.93 M/mm3 (3.65-5.03) L 03/25/21 05:27 Hgb 9.3 gm/dl (11.8-15.2) L 03/25/21 05:27 Hct 28.9 % (35.5-45.6) L 03/25/21 05:27 MCV 99 fl (84-94) H 03/25/21 05:27 MCH 32 pg (28-32) 03/25/21 05:27 MCHC 32 % (32-34) 03/25/21 05:27 RDW 12.7 % (13.2-15.2) L 03/25/21 05:27 Plt Count 422 K/mm3 (140-440) 03/25/21 05:27 Lymph % (Auto) 12.7 % (13.4-35.0) L 03/25/21 05:27 [place] % (Auto) 10.3 % (0.0-7.3) H 03/25/21 05:27 Eos % (Auto) 1.2 % (0.0-4.3) 03/25/21 05:27 Baso % (Auto) 0.5 % (0.0-1.8) 03/25/21 05:27 Lymph # (Auto) 1.2 K/mm3 (1.2-5.4) 03/25/21 05:27 [place] # (Auto) 1.0 K/mm3 (0.0-0.8) H 03/25/21 05:27 Eos # (Auto) 0.1 K/mm3 (0.0-0.4) 03/25/21 05:27 Baso # (Auto) 0.1 K/mm3 (0.0-0.1) 03/25/21 05:27 Seg Neutrophils % 75.3 % (40.0-70.0) H 03/25/21 05:27 Seg Neutrophils # 7.2 K/mm3 (1.8-7.7) 03/25/21 05:27 Sodium 138 mmol/L (137-145) 03/25/21 05:27 Potassium 3.4 mmol/L (3.6-5.0) L 03/25/21 05:27 Chloride 103.4 mmol/L (98-107) 03/25/21 05:27 Carbon Dioxide 25 mmol/L (22-30) 03/25/21 05:27 Anion Gap 13 mmol/L 03/25/21 05:27 BUN 5 mg/dL (9-20) L 03/25/21 05:27 Creatinine 0.7 mg/dL (0.8-1.3) L 03/25/21 05:27 Estimated GFR > 60 ml/min 03/25/21 05:27 BUN/Creatinine Ratio 7 % 03/25/21 05:27 Glucose 113 mg/dL (75-100) H 03/25/21 05:27 POC Glucose 110 mg/dL (70-105) H 03/25/21 12:02 Calcium 8.5 mg/dL (8.4-10.2) 03/25/21 05:27 Phosphorus 3.50 mg/dL (2.5-4.5) 03/25/21 05:27 Magnesium 1.90 mg/dL (1.7-2.3) 03/25/21 05:27 Total Bilirubin 0.20 mg/dL (0.1-1.2) 03/25/21 11:48 Direct Bilirubin < 0.2 mg/dL (0-0.2) 03/25/21 11:48 Indirect Bilirubin 0.0 mg/dL 03/25/21 11:48 AST 17 units/L (5-40) 03/25/21 11:48 ALT 16 units/L (7-56) 03/25/21 11:48 Alkaline Phosphatase 90 units/L (35-129) 03/25/21 11:48 Total Protein 5.8 g/dL (6.3-8.2) L 03/25/21 11:48 Albumin 2.4 g/dL (3.9-5) L 03/25/21 11:48 Albumin/Globulin Ratio 0.7 % 03/25/21 11:48 Triglycerides 140 mg/dL (2-149) 03/25/21 05:27 Lipase 262 units/L (13-60) H 03/17/21 14:09 Urine Color Yellow (Yellow) 03/18/21 Unknown Urine Turbidity Clear (Clear) 03/18/21 Unknown Urine pH 5.0 (5.0-7.0) 03/18/21 Unknown Ur Specific [place] 1.019 (1.003-1.030) 03/18/21 Unknown Urine Protein 30 mg/dl mg/dL (Negative) 03/18/21 Unknown Urine Glucose (UA) Neg mg/dL (Negative) 03/18/21 Unknown Urine Ketones 20 mg/dL (Negative) 03/18/21 Unknown Urine Blood Neg (Negative) 03/18/21 Unknown Urine Nitrite Neg (Negative) 03/18/21 Unknown Urine Bilirubin Neg (Negative) 03/18/21 Unknown Urine Urobilinogen 2.0 mg/dL (<2.0) 03/18/21 Unknown Ur Leukocyte Esterase Neg (Negative) 03/18/21 Unknown Urine WBC (Auto) 3.0 /HPF (0.0-6.0) 03/18/21 Unknown Urine RBC (Auto) 2.0 /HPF (0.0-6.0) 03/18/21 Unknown Urine Mucus Few /HPF 03/18/21 Unknown Coronavirus (PCR) Negative (Negative) 03/19/21 Unknown [place]/IV: Voiding Method Urinal Active Medications - Current Medications Current Medications: Generic Name Dose Route Start Last Admin Trade Name Freq PRN Reason Stop Dose Admin Acetaminophen 650 mg 03/17/21 22:33 Acetaminophen 325 Mg Tab PO Q4H PRN Pain MILD(1-3)/Fever >100.5/CHRISTIANSEN Acetaminophen 650 mg 03/17/21 22:41 03/22/21 22:20 Acetaminophen 650 Mg Rect Supp OK 650 mg Q4H PRN Administration Pain MILD(1-3)/Fever >100.5/CHRISTIANSEN Famotidine 20 mg 03/17/21 23:00 03/25/21 09:45 Famotidine 20 Mg/2 Ml Inj IV 20 mg BID PRASHANT Administration Heparin Sodium (Porcine) 5,000 unit 03/18/21 10:00 03/25/21 09:45 Heparin 5,000 Unit/1 Ml Vial SUB-Q Not Given Q12HR PRASHANT Hydromorphone HCl 0.5 mg 03/17/21 22:41 03/25/21 14:11 Hydromorphone 1 Mg/1 Ml Inj IV 0.5 mg Q3H PRN Administration Pain , Severe (7-10) Dextrose/Sodium Chloride 1,000 mls @ 125 mls/hr 03/17/21 23:00 03/25/21 04:54 D5ns IV 125 mls/hr DIRECT PRASHANT Administration Ceftriaxone Sodium 2 gm in 100 mls @ 200 mls/hr 03/22/21 22:00 03/24/21 21:08 Rocephin/Ns 2 Gm/100 Ml IV 03/26/21 22:29 200 mls/hr Q24H PRASHANT Administration Protocol Amino Acids/Electrolytes/Dextrose 2,000 mls @ 83 mls/hr 03/24/21 20:00 03/24/21 21:10 Clinimix E 4.25%-10% Solution IV 03/25/21 19:59 83 mls/hr ONCE PRASHANT Administration Amino Acids 1,999.92 mls @ 83.33 mls/hr 03/25/21 20:00 Clinimix 4.25%-10% Solution IV 03/26/21 19:59 DIRECT PRASHANT Metoclopramide HCl 10 mg 03/17/21 22:33 03/25/21 09:48 Metoclopramide 10 Mg/2 Ml Inj IV 10 mg Q6H PRN Administration Nausea And Vomiting Morphine Sulfate 2 mg 03/17/21 22:41 03/24/21 15:42 Morphine 2 Mg/1 Ml Inj IV 2 mg Q4H PRN Administration Pain, Moderate (4-6) Ondansetron HCl 4 mg 03/17/21 22:33 03/25/21 04:54 Ondansetron 4 Mg/2 Ml Inj IV 4 mg Q8H PRN Administration Nausea And Vomiting Phenol 1 spray 03/25/21 11:29 Phenol 1.4% 177 Ml Bottle MM PRN PRN Sore Throat Sodium Chloride 10 ml 03/17/21 22:33 03/24/21 01:15 Sodium Chloride 0.9% 10 Ml Flush Syringe IV 10 ml PRN PRN Administration LINE FLUSH Sodium Chloride 10 ml 03/18/21 10:00 03/25/21 09:46 Sodium Chloride 0.9% 10 Ml Flush Syringe IV 10 ml BID PRASHANT Administration Sodium Hypochlorite 1 applic 03/23/21 17:00 03/25/21 04:56 Sodium Hypochlorite, [place] Full Strength (0.5%) 473 Ml Topical Soln TP 1 applicatio Q12H PRASHANT Administration Nutrition/Malnutrition Assess - Dietary Evaluation Nutrition/Malnutrition Findings: Nutrition Notes Start: 03/19/21 11:28 Freq: Status: Active Protocol: Document 03/25/21 09:54 CHANCE (Rec: 03/25/21 10:33 CHANCE [id number]) Nutrition Notes Initial or Follow up Reassessment Current Diagnosis Small Bowel Obstruction Other Pertinent Diagnosis Pelvic abscess, (R) hemicolectomy, (L) pneumothorax Current Diet TPN (since 03/24). Labs/Tests 03/25: Cl 3.4, BUN 5, Crea 0.7 , Glu 113. Pertinent Medications D5ns 1,000 ml @ 125 ml/hr, ( 170kcal) Height 6 ft 5 in Weight 68.6 kg [place] Body Weight (kg) 94.54 BMI 17.9 Weight change and time frame No further body weight report at the time. Weight Status Underweight Subjective/Other Information RD consult to F/U on TPN. Percent of energy/protein needs met: Prescribed TPN provides for energy/protein needs (1,020 Kcal/85 g) during LOS. 50/95% respectivelly. Burn Absent Trauma Absent GI Symptoms Other Food Allergy No Skin Integrity/Comment surgical wound medial abd Current % PO Other Minimum of two criteria No #1 Nutrition Diagnosis Altered GI function Comments: 03/24: TPN started - late order Clinimix 4./10 @ 83. 33ml/hr. Etiology SBO, pelvic abscess s/p surgery As Evidenced by Signs and Symptoms TPN continuation. Diagnosis Progress(for reassessment Continues documentation) Is patient on ventilator? No Is Patient Ambulatory and/or Out of Bed No REE-([facility]-confined to bed) 2.684 Kcal/Kg value to use for calculation 32 Approximate Energy Requirements Using 2195 kcal/Kg Calculation Used for Recommendations Kcal/kg Additional Notes Protein: 1.25-1.5 g/Kg; 89-107 g/day. Fluids: 1 ml/Kcal, or as per MD. Nutrition Intervention Change Diet Order: Continue NPO. Nutrition Support: TPN Clinimix 4.25/10 @ 83.33 ml/hr (central line) Kcal 1,020 Protein (gm) 85 Carbohydrates (gm) 200 Fluid (mL) 2,000 % RDI: 50% Kcal; 95% AA. Goal #1 Maintain body weight within +/ -3% of current BWt during LOS. Goal #2 Reach and maintain acceptable chemistry lab values during LOS. Follow-Up By: 03/26/21 Additional Comments TPN started: clinimix 83.33ml/ hr, daily labs, labs for P/Mg/ Tg needed.
[2021-03-25 15:31] LABS: Hematocrit 29.3 % (35.5-45.6); Hemoglobin 10.1 gm/dl (11.8-15.2)
--- NOTE | 2021-03-25 16:20 | Progress Note ---
Assessment and Plan - Patient Problems (1) SBO (small bowel obstruction) Current Visit: Yes Status: Acute Plan to address problem: 1) Continue NG to LIS 2) Continue TPN 3) CXR, AXR, CBC and BMP in the am 4) Dr. Coppola will round 03/26-03/28/21. Subjective Date of service: 03/25/21 Patient Reports: Positive: no new complaints, feels better, no flatus, no bowel movement Objective Vital Signs - 12hr 03/25/21 03/25/21 03/25/21 07:29 10:00 11:00 Temperature 98.4 F Pulse Rate 83 Pulse Rate [ 88 From Monitor] Respiratory 20 18 Rate Blood Pressure 130/85 O2 Sat by Pulse 100 94 99 Oximetry 03/25/21 03/25/21 12:02 16:12 Temperature 98.3 F 98.3 F Pulse Rate 89 93 H Pulse Rate [ From Monitor] Respiratory 20 20 Rate Blood Pressure 158/95 144/84 O2 Sat by Pulse 98 99 Oximetry - Abdomen soft, bowel sounds hypoactive, not distended (Minimally TTP), not rebound, not guarding - Labs 03/25/21 15:09 03/25/21 05:27 Diabetes panel 03/25/21 03/25/21 03/25/21 Range/Units 05:27 05:27 11:48 Sodium 138 (137-145) mmol/L Potassium 3.4 L (3.6-5.0) mmol/L Chloride 103.4 (98-107) mmol/L Carbon Dioxide 25 (22-30) mmol/L BUN 5 L (9-20) mg/dL Creatinine 0.7 L (0.8-1.3) mg/dL Glucose 113 H (75-100) mg/dL Calcium 8.5 (8.4-10.2) mg/dL AST 17 (5-40) units/L ALT 16 (7-56) units/L Alkaline Phosphatase 90 (35-129) units/L Total Protein 5.8 L (6.3-8.2) g/dL Albumin 2.4 L (3.9-5) g/dL Triglycerides 140 (2-149) mg/dL Calcium panel 03/25/21 03/25/21 03/25/21 Range/Units 05:27 05:27 11:48 Calcium 8.5 (8.4-10.2) mg/dL Phosphorus 3.50 (2.5-4.5) mg/dL Albumin 2.4 L (3.9-5) g/dL Pituitary panel 03/25/21 Range/Units 05:27 Sodium 138 (137-145) mmol/L Potassium 3.4 L (3.6-5.0) mmol/L Chloride 103.4 (98-107) mmol/L Carbon Dioxide 25 (22-30) mmol/L BUN 5 L (9-20) mg/dL Creatinine 0.7 L (0.8-1.3) mg/dL Glucose 113 H (75-100) mg/dL Calcium 8.5 (8.4-10.2) mg/dL Adrenal panel 03/25/21 03/25/21 Range/Units 05:27 11:48 Sodium 138 (137-145) mmol/L Potassium 3.4 L (3.6-5.0) mmol/L Chloride 103.4 (98-107) mmol/L Carbon Dioxide 25 (22-30) mmol/L BUN 5 L (9-20) mg/dL Creatinine 0.7 L (0.8-1.3) mg/dL Glucose 113 H (75-100) mg/dL Calcium 8.5 (8.4-10.2) mg/dL Total Bilirubin 0.20 (0.1-1.2) mg/dL AST 17 (5-40) units/L ALT 16 (7-56) units/L Alkaline Phosphatase 90 (35-129) units/L Total Protein 5.8 L (6.3-8.2) g/dL Albumin 2.4 L (3.9-5) g/dL
[2021-03-25] MEDS: PHENOL 1.4% 177 ML BOTTLE MM PRN (17:33)
[2021-03-25] MEDS ORDERED: AMINO ACIDS 4.25%/DEXTROSE 10% 2,000 ML IV SCH (20:00)
[2021-03-25] MEDS: cefTRIAXone/NS 2 GM/100 ML 2 GM/100 ML BAG IV SCH (21:25)
[2021-03-26] MEDS: HYDROmorphone 1 MG/1 ML INJ IV PRN ×8 (00:38→21:43)
[2021-03-26] MEDS: PHENOL 1.4% 177 ML BOTTLE MM PRN (00:41)
[2021-03-26] MEDS: D5W/0.9% NACL 1,000 ML IV SCH ×2 (03:32→10:11)
[2021-03-26] MEDS: SODIUM HYPOCHLORITE, DAKIN'S FULL STRENGTH (0.5%) 473 ML TOPICAL SOLN TP SCH ×3 (05:02→18:01)
[2021-03-26 06:02] LABS: Hematocrit 26.9 % (35.5-45.6); Hemoglobin 9.3 gm/dl (11.8-15.2); Mean Corpuscular HGB Conc 35 % (32-34); Mean Corpuscular Volume 99 fl (84-94); Platelet Count 388 K/mm3 (140-440); Red Blood Count 2.72 M/mm3 (3.65-5.03); Red Cell Distribution Width 12.7 % (13.2-15.2)
[2021-03-26 06:20] LABS: Alanine Aminotransferase 24 units/L (7-56); Albumin 2.3 g/dL (3.9-5); BUN/Creatinine Ratio 15; Blood Urea Nitrogen 9 mg/dL (9-20); Hemolysis Index 14
--- NOTE | 2021-03-26 09:15 | XRay Report ---
CHEST - 1 VIEW 0805 hours INDICATION: left ptx COMPARISON: 03/24/2021 FINDINGS: Support devices: Stable support device positioning. Heart: Stable cardiomediastinal silhouette. Lungs/pleura: Small left apical pneumothorax has resolved. There are minor atelectatic changes at th e left lung base. The lungs are clear otherwise. Additional findings: None. IMPRESSION: Small left apical pneumothorax is no longer seen. Signer Name: Wale Cardenas Jr, MD Signed: 03/26/2021 9:11 AM Workstation Name: [id number]
--- NOTE | 2021-03-26 09:20 | XRay Report ---
ABDOMEN 2 VIEW(S) INDICATION / CLINICAL INFORMATION: ileus. COMPARISON: 03/24/2021 FINDINGS: TUBES / LINES: Nasogastric tube is unchanged terminating in the fundus of the stomach. Surgical drain in the left pelvis is unchanged. BOWEL GAS PATTERN: Mildly dilated loops of small bowel throughout the abdomen appear unchanged. FREE AIR / EXTRALUMINAL GAS: None seen. ADDITIONAL FINDINGS: No significant additional findings. IMPRESSION: No significant interval change. Signer Name: Wale Cardenas Jr, MD Signed: 03/26/2021 9:15 AM Workstation Name: [id number]
[2021-03-26] MEDS: HEPARIN 5,000 UNIT/1 ML VIAL SUB-Q SCH ×2 (10:06→21:42)
[2021-03-26] MEDS: FAMOTIDINE 20 MG/2 ML INJ IV SCH ×2 (10:07→21:42)
[2021-03-26] MEDS: POTASSIUM CHLORIDE 10 MEQ 10 MEQ/100 ML BAG IV SCH ×4 (11:22→14:34)
--- NOTE | 2021-03-26 11:41 | Progress Note ---
Assessment and Plan Assessment and plan: High-grade severe small bowel obstruction with leukocytosis and low-grade fever at presentation Patient had the first episode about 3 months ago Patient did not seek medical attention, symptoms resolved after 4 days No known past medical or surgical history Hyponatremia likely from vomiting, resolved Laparotomy on 03/18 revealed pelvic abscess possibly from a ruptured appendix, IBD, awaiting histopathology report Surgical cultures growing E. coli sensitive to ceftriaxone, Levaquin and Zosyn Status post right hemicolectomy and ileocolic end-to-end anastomosis Leukocytosis resolving but low grade fever persists. Blood cultures negative, CXR shows atelectasis which could be causing the fever. Left pneumothorax with central line placement, s/p chest tube placement, pneumothorax improved but not resolved yet. Plan: Remains stable postoperatively, general surgery following closely Low-grade fever with pelvic abscess, infected cyst CXR, needs aggressive incentive spirometry No output from left chest tube Continue n.p.o. until bowel function returns Continue Zosyn empirically Continue IV fluids Continue NG suction Monitor WBC, electrolytes and renal function Pain medication and antiemetic as needed. Discussed with the patient, nursing staff 03/23: Continue supportive care. Continue wound management. Chest tube management per surgery. Pain control. Discussed with nursing staff at bedside 03/24: KUB still shows persistent ileus. Dietitian consulted for TPN initiation. Continue supportive care we will downgrade to telemetry 03/25: Patient seen and examined this morning had some increased output from the NG tube that was more dark in concentration hemoglobin remained stable but concerning that there may be some coffee-ground emesis. Will monitor H&H this afternoon to see if there is any further drop. Will await surgical reevaluation. I will hold heparin for now. Chest tube remains in place. Wound care management discussed with nursing staff. Continue pain control 03/26: Patient seen and examined, resting comfortable, Continue supportive care, further management by Surgery. Will restart heparin in am if clinically stable. Replace K History Interval history: Patient seen and examined today no new complaints. Still with NG in place and draining Hospitalist Physical - Physical exam Narrative exam: General appearance: Present: no acute distress, other (Alert and oriented, looks comfortable) - EENT Eyes: Present: PERRL, EOM intact ENT: clear oral mucosa, other (NG tube in place) - Neck Neck: Present: supple - Respiratory Respiratory effort: normal Respiratory: bilateral: diminished (Diminished breath sounds in the left thorax. Chest tube in place. No subcutaneous emphysema.) - Cardiovascular Rhythm: regular - Extremities Extremities: No edema - Abdominal General gastrointestinal: soft, non-tender, non-distended, absent bowel sounds, other (Dressings over surgical incision in place) - Integumentary Integumentary: Absent: jaundice, rash - Psychiatric Psychiatric: appropriate mood/affect - Neurologic Neurologic: no focal deficits - Constitutional Vitals: Temp Pulse Resp BP Pulse Ox 97.7 F 90 20 148/93 96 03/26/21 07:19 03/26/21 07:19 03/26/21 07:19 03/26/21 07:19 03/26/21 07:19 General appearance: Present: no acute distress, other (Alert and oriented, looks comfortable) Results - Labs CBC & Chem 7: 03/26/21 04:26 03/26/21 04:26 Labs: Laboratory Last Values WBC 7.6 K/mm3 (4.5-11.0) 03/26/21 04:26 RBC 2.72 M/mm3 (3.65-5.03) L 03/26/21 04:26 Hgb 9.3 gm/dl (11.8-15.2) L 03/26/21 04:26 Hct 26.9 % (35.5-45.6) L 03/26/21 04:26 MCV 99 fl (84-94) H 03/26/21 04:26 MCH 34 pg (28-32) H 03/26/21 04:26 MCHC 35 % (32-34) H 03/26/21 04:26 RDW 12.7 % (13.2-15.2) L 03/26/21 04:26 Plt Count 388 K/mm3 (140-440) 03/26/21 04:26 Lymph % (Auto) 12.7 % (13.4-35.0) L 03/25/21 05:27 [place] % (Auto) 10.3 % (0.0-7.3) H 03/25/21 05:27 Eos % (Auto) 1.2 % (0.0-4.3) 03/25/21 05:27 Baso % (Auto) 0.5 % (0.0-1.8) 03/25/21 05:27 Lymph # (Auto) 1.2 K/mm3 (1.2-5.4) 03/25/21 05:27 [place] # (Auto) 1.0 K/mm3 (0.0-0.8) H 03/25/21 05:27 Eos # (Auto) 0.1 K/mm3 (0.0-0.4) 03/25/21 05:27 Baso # (Auto) 0.1 K/mm3 (0.0-0.1) 03/25/21 05:27 Seg Neutrophils % 75.3 % (40.0-70.0) H 03/25/21 05:27 Seg Neutrophils # 7.2 K/mm3 (1.8-7.7) 03/25/21 05:27 Sodium 137 mmol/L (137-145) 03/26/21 04:26 Potassium 3.4 mmol/L (3.6-5.0) L 03/26/21 04:26 Chloride 101.8 mmol/L (98-107) 03/26/21 04:26 Carbon Dioxide 24 mmol/L (22-30) 03/26/21 04:26 Anion Gap 15 mmol/L 03/26/21 04:26 BUN 9 mg/dL (9-20) 03/26/21 04:26 Creatinine 0.6 mg/dL (0.8-1.3) L 03/26/21 04:26 Estimated GFR > 60 ml/min 03/26/21 04:26 BUN/Creatinine Ratio 15 % 03/26/21 04:26 Glucose 108 mg/dL (75-100) H 03/26/21 04:26 POC Glucose 95 mg/dL (70-105) 03/26/21 11:20 Calcium 8.0 mg/dL (8.4-10.2) L 03/26/21 04:26 Phosphorus 3.20 mg/dL (2.5-4.5) 03/26/21 04:26 Magnesium 2.00 mg/dL (1.7-2.3) 03/26/21 04:26 Total Bilirubin 0.20 mg/dL (0.1-1.2) 03/26/21 04:26 Direct Bilirubin < 0.2 mg/dL (0-0.2) 03/25/21 11:48 Indirect Bilirubin 0.0 mg/dL 03/25/21 11:48 AST 25 units/L (5-40) 03/26/21 04:26 ALT 24 units/L (7-56) 03/26/21 04:26 Alkaline Phosphatase 105 units/L (35-129) 03/26/21 04:26 Total Protein 5.7 g/dL (6.3-8.2) L 03/26/21 04:26 Albumin 2.3 g/dL (3.9-5) L 03/26/21 04:26 Albumin/Globulin Ratio 0.7 % 03/26/21 04:26 Triglycerides 140 mg/dL (2-149) 03/25/21 05:27 Lipase 262 units/L (13-60) H 03/17/21 14:09 Urine Color Yellow (Yellow) 03/18/21 Unknown Urine Turbidity Clear (Clear) 03/18/21 Unknown Urine pH 5.0 (5.0-7.0) 03/18/21 Unknown Ur Specific [place] 1.019 (1.003-1.030) 03/18/21 Unknown Urine Protein 30 mg/dl mg/dL (Negative) 03/18/21 Unknown Urine Glucose (UA) Neg mg/dL (Negative) 03/18/21 Unknown Urine Ketones 20 mg/dL (Negative) 03/18/21 Unknown Urine Blood Neg (Negative) 03/18/21 Unknown Urine Nitrite Neg (Negative) 03/18/21 Unknown Urine Bilirubin Neg (Negative) 03/18/21 Unknown Urine Urobilinogen 2.0 mg/dL (<2.0) 03/18/21 Unknown Ur Leukocyte Esterase Neg (Negative) 03/18/21 Unknown Urine WBC (Auto) 3.0 /HPF (0.0-6.0) 03/18/21 Unknown Urine RBC (Auto) 2.0 /HPF (0.0-6.0) 03/18/21 Unknown Urine Mucus Few /HPF 03/18/21 Unknown Coronavirus (PCR) Negative (Negative) 03/19/21 Unknown [place]/IV: Voiding Method Urinal Active Medications - Current Medications Current Medications: Generic Name Dose Route Start Last Admin Trade Name Freq PRN Reason Stop Dose Admin Acetaminophen 650 mg 03/17/21 22:33 Acetaminophen 325 Mg Tab PO Q4H PRN Pain MILD(1-3)/Fever >100.5/CHRISTIANSEN Acetaminophen 650 mg 03/17/21 22:41 03/22/21 22:20 Acetaminophen 650 Mg Rect Supp CA 650 mg Q4H PRN Administration Pain MILD(1-3)/Fever >100.5/CHRISTIANSEN Famotidine 20 mg 03/17/21 23:00 03/26/21 10:07 Famotidine 20 Mg/2 Ml Inj IV 20 mg BID PRASHANT Administration Heparin Sodium (Porcine) 5,000 unit 03/18/21 10:00 03/26/21 10:06 Heparin 5,000 Unit/1 Ml Vial SUB-Q 5,000 unit Q12HR PRASHANT Administration Hydromorphone HCl 0.5 mg 03/17/21 22:41 03/26/21 10:07 Hydromorphone 1 Mg/1 Ml Inj IV 0.5 mg Q3H PRN Administration Pain , Severe (7-10) Dextrose/Sodium Chloride 1,000 mls @ 125 mls/hr 03/17/21 23:00 03/26/21 10:11 D5ns IV 125 mls/hr DIRECT PRASHANT Administration Ceftriaxone Sodium 2 gm in 100 mls @ 200 mls/hr 03/22/21 22:00 03/25/21 21:25 Rocephin/Ns 2 Gm/100 Ml IV 03/26/21 22:29 200 mls/hr Q24H PRASHANT Administration Protocol Amino Acids 1,999.92 mls @ 83.33 mls/hr 03/25/21 20:00 03/25/21 21:28 Clinimix 4.25%-10% Solution IV 03/26/21 19:59 83.33 mls/hr DIRECT PRASHANT Administration Potassium Chloride 10 meq in 100 mls @ 100 mls/hr 03/26/21 10:00 03/26/21 11:22 Kcl 10meq/100ml IV 03/26/21 13:59 100 mls/hr Q1H PRASHANT Administration Metoclopramide HCl 10 mg 03/17/21 22:33 03/25/21 09:48 Metoclopramide 10 Mg/2 Ml Inj IV 10 mg Q6H PRN Administration Nausea And Vomiting Morphine Sulfate 2 mg 03/17/21 22:41 03/24/21 15:42 Morphine 2 Mg/1 Ml Inj IV 2 mg Q4H PRN Administration Pain, Moderate (4-6) Ondansetron HCl 4 mg 03/17/21 22:33 03/25/21 04:54 Ondansetron 4 Mg/2 Ml Inj IV 4 mg Q8H PRN Administration Nausea And Vomiting Phenol 1 spray 03/25/21 11:29 03/26/21 00:41 Phenol 1.4% 177 Ml Bottle MM 1 spray PRN PRN Administration Sore Throat Sodium Chloride 10 ml 03/17/21 22:33 03/24/21 01:15 Sodium Chloride 0.9% 10 Ml Flush Syringe IV 10 ml PRN PRN Administration LINE FLUSH Sodium Chloride 10 ml 03/18/21 10:00 03/26/21 10:07 Sodium Chloride 0.9% 10 Ml Flush Syringe IV 10 ml BID PRASHANT Administration Sodium Hypochlorite 1 applic 03/23/21 17:00 03/26/21 05:02 Sodium Hypochlorite, [place] Full Strength (0.5%) 473 Ml Topical Soln TP 1 applicatio Q12H PRASHANT Administration Nutrition/Malnutrition Assess - Dietary Evaluation Nutrition/Malnutrition Findings: Nutrition Notes Start: 03/19/21 11:28 Freq: Status: Active Protocol: Document 03/26/21 10:43 CHANCE (Rec: 03/26/21 11:02 CHANCE [id number]) Nutrition Notes Initial or Follow up Reassessment Current Diagnosis Small Bowel Obstruction Other Pertinent Diagnosis Pelvic abscess, (R) hemicolectomy, (L) pneumothorax Current Diet TPN (since 03/24). Labs/Tests 03/26: K 3.4, Cre 0.6, Glu 108 , Ca 8.0, Phos 3.2, Mg 2.0, Tpro 5.7, Alb 2.3. Pertinent Medications D5ns 1,000 ml @ 125 ml/hr, ( 170kcal) Height 5 ft 6 in Weight 68.6 kg [place] Body Weight (kg) 64.54 BMI 24.4 Weight change and time frame No further body weight report at the time. Weight Status Underweight Subjective/Other Information RD consult to F/U on TPN. Percent of energy/protein needs met: Prescribed TPN provides fro energy/protein needs (1,040 Kcal/90 g) during LOS. 47.4/ 100% respectivelly. Burn Absent Trauma Absent GI Symptoms Other Food Allergy No Skin Integrity/Comment surgical wound medial abd Current % PO Other Minimum of two criteria No #1 Nutrition Diagnosis Altered GI function Comments: 03/26: TPN changed to 4.5/10 Custom @ 83.33 ml/hr. Etiology SBO, pelvic abscess s/p surgery As Evidenced by Signs and Symptoms TPN continuation with adjustments. Diagnosis Progress(for reassessment Continues documentation) Is patient on ventilator? No Is Patient Ambulatory and/or Out of Bed No REE-([facility]-confined to bed) 1873.128 Kcal/Kg value to use for calculation 32 Approximate Energy Requirements Using 2195 kcal/Kg Calculation Used for Recommendations Kcal/kg Additional Notes Protein: 1.25-1.5 g/Kg; 89-107 g/day. Fluids: 1 ml/Kcal, or as per MD. Nutrition Intervention Change Diet Order: Continue NPO Nutrition Support: TPN Custom 4.5/10 @ 83.33 ml/ hr (central line). Kcal 1,040 Protein (gm) 90 Carbohydrates (gm) 200 Fluid (mL) 2,000 % RDI: 47.4% Kcal; 100% AA. Goal #1 Maintain body weight within +/ -3% of current BWt during LOS. Goal #2 Reach and maintain acceptable chemistry lab values during LOS. Follow-Up By: 03/27/21 Additional Comments TPN adjusted; labs requested BMP, Mg, Phos.
[2021-03-26] MEDS ORDERED: POTASSIUM CHLORIDE 10 MEQ 10 MEQ/100 ML BAG IV SCH (13:00)
--- NOTE | 2021-03-26 16:17 | Progress Note ---
Assessment and Plan (1) SBO (small bowel obstruction) Current Visit: Yes Status: Acute Plan to address problem: 35 yo M s/p 1) Right colectomy with ileocolonic anastomosis, 2) Drainage of pelvic abscess, 3) Placement of left subclavian CVL, 4)Placement L sided chest tube AXR - mild dilatation of small bowel loops CXR - L chest tube in place, no PTX Plan: 1. NPO except ice chips 2. NGT to LIWS - will dc once 3. IV abx 4. TPN 5. CXR in am 6. OOB/ambulate 7. Abdominal binder 8. DVT and GI ppx 9. Daily labs 10. prn pain control Subjective Date of service: 03/26/21 Narrative: Pt seen and examined. c/o abdominal pain when he coughs. He is sitting in the chair. Denies n/v, sob, f/c. Has passed flatus and had a BM today. Pain is well controlled. Dressing was changed today by RN. Objective Vital Signs - 12hr 03/26/21 03/26/21 03/26/21 04:17 05:00 07:19 Temperature 98.1 F 97.7 F Pulse Rate 82 83 90 Pulse Rate [ From Monitor] Respiratory 18 20 Rate Blood Pressure 142/88 148/93 O2 Sat by Pulse 98 96 Oximetry 03/26/21 03/26/21 03/26/21 10:00 11:00 11:21 Temperature 98.3 F Pulse Rate 94 H Pulse Rate [ 88 From Monitor] Respiratory 18 20 Rate Blood Pressure 137/89 O2 Sat by Pulse 97 99 97 Oximetry 03/26/21 15:21 Temperature 98.3 F Pulse Rate 88 Pulse Rate [ From Monitor] Respiratory 20 Rate Blood Pressure 139/94 O2 Sat by Pulse 100 Oximetry - General physical appearance Narrative Exam: Gen; AAOx3. NAD ENT: NGT with gastric output. CV: s1, S2+ Resp: even and unlabored. L sided chest tube without leak - on -[id number] suction via pleurevac, no drainage Abd: soft, ND, mildly tender in midline at incision. Incision is clean with dressing in place. BETH serosang Ext: no c/c/e - Labs 03/26/21 04:26 03/26/21 04:26 Diabetes panel 03/26/21 Range/Units 04:26 Sodium 137 (137-145) mmol/L Potassium 3.4 L (3.6-5.0) mmol/L Chloride 101.8 (98-107) mmol/L Carbon Dioxide 24 (22-30) mmol/L BUN 9 (9-20) mg/dL Creatinine 0.6 L (0.8-1.3) mg/dL Glucose 108 H (75-100) mg/dL Calcium 8.0 L (8.4-10.2) mg/dL AST 25 (5-40) units/L ALT 24 (7-56) units/L Alkaline Phosphatase 105 (35-129) units/L Total Protein 5.7 L (6.3-8.2) g/dL Albumin 2.3 L (3.9-5) g/dL Calcium panel 03/26/21 03/26/21 Range/Units 04:26 04:26 Calcium 8.0 L (8.4-10.2) mg/dL Phosphorus 3.20 (2.5-4.5) mg/dL Albumin 2.3 L (3.9-5) g/dL Pituitary panel 03/26/21 Range/Units 04:26 Sodium 137 (137-145) mmol/L Potassium 3.4 L (3.6-5.0) mmol/L Chloride 101.8 (98-107) mmol/L Carbon Dioxide 24 (22-30) mmol/L BUN 9 (9-20) mg/dL Creatinine 0.6 L (0.8-1.3) mg/dL Glucose 108 H (75-100) mg/dL Calcium 8.0 L (8.4-10.2) mg/dL Adrenal panel 03/26/21 Range/Units 04:26 Sodium 137 (137-145) mmol/L Potassium 3.4 L (3.6-5.0) mmol/L Chloride 101.8 (98-107) mmol/L Carbon Dioxide 24 (22-30) mmol/L BUN 9 (9-20) mg/dL Creatinine 0.6 L (0.8-1.3) mg/dL Glucose 108 H (75-100) mg/dL Calcium 8.0 L (8.4-10.2) mg/dL Total Bilirubin 0.20 (0.1-1.2) mg/dL AST 25 (5-40) units/L ALT 24 (7-56) units/L Alkaline Phosphatase 105 (35-129) units/L Total Protein 5.7 L (6.3-8.2) g/dL Albumin 2.3 L (3.9-5) g/dL
[2021-03-26] MEDS ORDERED: TOTAL PARENTERAL NUTRITION 2,000 ML IV SCH (20:00)
[2021-03-26] MEDS: cefTRIAXone/NS 2 GM/100 ML 2 GM/100 ML BAG IV SCH (21:48)
[2021-03-27] MEDS: HYDROmorphone 1 MG/1 ML INJ IV PRN ×8 (00:40→23:51)
[2021-03-27 05:45] LABS: Hematocrit 29.7 % (35.5-45.6); Hemoglobin 9.9 gm/dl (11.8-15.2); Mean Corpuscular HGB Conc 34 % (32-34); Mean Corpuscular Volume 99 fl (84-94); Platelet Count 470 K/mm3 (140-440); Red Blood Count 2.99 M/mm3 (3.65-5.03); Red Cell Distribution Width 12.6 % (13.2-15.2)
[2021-03-27 06:01] LABS: Blood Urea Nitrogen 10 mg/dL (9-20); Calcium 8.9 mg/dL (8.4-10.2); Hemolysis Index 0
[2021-03-27 06:04] LABS: BUN/Creatinine Ratio 14
[2021-03-27] MEDS: SODIUM HYPOCHLORITE, DAKIN'S FULL STRENGTH (0.5%) 473 ML TOPICAL SOLN TP SCH ×2 (06:41→16:29)
--- NOTE | 2021-03-27 07:53 | XRay Report ---
CHEST 1 VIEW 03/27/2021 7:11 AM INDICATION / CLINICAL INFORMATION: left chest tube, ptx. COMPARISON: Previous day. FINDINGS: SUPPORT DEVICES: Unchanged. HEART / MEDIASTINUM: No significant abnormality. LUNGS / PLEURA: Persistent opacity left base. No pneumothorax. ADDITIONAL FINDINGS: No significant additional findings. IMPRESSION: No significant change. Signer Name: Curtis Scanlon MD Signed: 03/27/2021 7:49 AM Workstation Name: [id number]
[2021-03-27] MEDS: FAMOTIDINE 20 MG/2 ML INJ IV SCH ×2 (09:53→21:22)
[2021-03-27] MEDS: HEPARIN 5,000 UNIT/1 ML VIAL SUB-Q SCH ×2 (09:53→21:22)
--- NOTE | 2021-03-27 10:32 | Progress Note ---
Assessment and Plan Assessment and plan: High-grade severe small bowel obstruction with leukocytosis and low-grade fever at presentation Patient had the first episode about 3 months ago Patient did not seek medical attention, symptoms resolved after 4 days No known past medical or surgical history Hyponatremia likely from vomiting, resolved Laparotomy on 03/18 revealed pelvic abscess possibly from a ruptured appendix, IBD, awaiting histopathology report Surgical cultures growing E. coli sensitive to ceftriaxone, Levaquin and Zosyn Status post right hemicolectomy and ileocolic end-to-end anastomosis Leukocytosis resolving but low grade fever persists. Blood cultures negative, CXR shows atelectasis which could be causing the fever. Left pneumothorax with central line placement, s/p chest tube placement, pneumothorax improved but not resolved yet. Plan: Remains stable postoperatively, general surgery following closely Low-grade fever with pelvic abscess, infected cyst CXR, needs aggressive incentive spirometry No output from left chest tube Continue n.p.o. until bowel function returns Continue Zosyn empirically Continue IV fluids Continue NG suction Monitor WBC, electrolytes and renal function Pain medication and antiemetic as needed. Discussed with the patient, nursing staff 03/23: Continue supportive care. Continue wound management. Chest tube management per surgery. Pain control. Discussed with nursing staff at bedside 03/24: KUB still shows persistent ileus. Dietitian consulted for TPN initiation. Continue supportive care we will downgrade to telemetry 03/25: Patient seen and examined this morning had some increased output from the NG tube that was more dark in concentration hemoglobin remained stable but concerning that there may be some coffee-ground emesis. Will monitor H&H this afternoon to see if there is any further drop. Will await surgical reevaluation. I will hold heparin for now. Chest tube remains in place. Wound care management discussed with nursing staff. Continue pain control 03/26: Patient seen and examined, resting comfortable, Continue supportive care, further management by Surgery. Will restart heparin in am if clinically stable. Replace K 03/27: Patient seen and examined, supportive care, continue current surgical recommendation. Monitor H/H History Interval history: Patient seen and examined today no new complaints. Still with NG in place and draining, Intermittent pain with cough Hospitalist Physical - Physical exam Narrative exam: General appearance: Present: no acute distress, other (Alert and oriented, looks comfortable) - EENT Eyes: Present: PERRL, EOM intact ENT: clear oral mucosa, other (NG tube in place) - Neck Neck: Present: supple - Respiratory Respiratory effort: normal Respiratory: bilateral: diminished (Diminished breath sounds in the left thorax. Chest tube in place. No subcutaneous emphysema.) - Cardiovascular Rhythm: regular - Extremities Extremities: No edema - Abdominal General gastrointestinal: soft, non-tender, non-distended, absent bowel sounds, other (Dressings over surgical incision in place) - Integumentary Integumentary: Absent: jaundice, rash - Psychiatric Psychiatric: appropriate mood/affect - Neurologic Neurologic: no focal deficits - Constitutional Vitals: Temp Pulse Resp BP Pulse Ox 99.0 F 84 17 144/96 99 03/27/21 03:31 03/27/21 05:00 03/27/21 03:31 03/27/21 03:31 03/27/21 03:31 General appearance: Present: no acute distress, other (Alert and oriented, looks comfortable) Results - Labs CBC & Chem 7: 03/27/21 04:52 03/27/21 04:52 Labs: Laboratory Last Values WBC 7.6 K/mm3 (4.5-11.0) 03/27/21 04:52 RBC 2.99 M/mm3 (3.65-5.03) L 03/27/21 04:52 Hgb 9.9 gm/dl (11.8-15.2) L 03/27/21 04:52 Hct 29.7 % (35.5-45.6) L 03/27/21 04:52 MCV 99 fl (84-94) H 03/27/21 04:52 MCH 33 pg (28-32) H 03/27/21 04:52 MCHC 34 % (32-34) 03/27/21 04:52 RDW 12.6 % (13.2-15.2) L 03/27/21 04:52 Plt Count 470 K/mm3 (140-440) H 03/27/21 04:52 Lymph % (Auto) 12.7 % (13.4-35.0) L 03/25/21 05:27 [place] % (Auto) 10.3 % (0.0-7.3) H 03/25/21 05:27 Eos % (Auto) 1.2 % (0.0-4.3) 03/25/21 05:27 Baso % (Auto) 0.5 % (0.0-1.8) 03/25/21 05:27 Lymph # (Auto) 1.2 K/mm3 (1.2-5.4) 03/25/21 05:27 [place] # (Auto) 1.0 K/mm3 (0.0-0.8) H 03/25/21 05:27 Eos # (Auto) 0.1 K/mm3 (0.0-0.4) 03/25/21 05:27 Baso # (Auto) 0.1 K/mm3 (0.0-0.1) 03/25/21 05:27 Seg Neutrophils % 75.3 % (40.0-70.0) H 03/25/21 05:27 Seg Neutrophils # 7.2 K/mm3 (1.8-7.7) 03/25/21 05:27 Sodium 136 mmol/L (137-145) L 03/27/21 04:52 Potassium 3.9 mmol/L (3.6-5.0) 03/27/21 04:52 Chloride 99.4 mmol/L (98-107) 03/27/21 04:52 Carbon Dioxide 28 mmol/L (22-30) 03/27/21 04:52 Anion Gap 13 mmol/L 03/27/21 04:52 BUN 10 mg/dL (9-20) 03/27/21 04:52 Creatinine 0.7 mg/dL (0.8-1.3) L 03/27/21 04:52 Estimated GFR > 60 ml/min 03/27/21 04:52 BUN/Creatinine Ratio 14 % 03/27/21 04:52 Glucose 94 mg/dL (75-100) 03/27/21 04:52 POC Glucose 90 mg/dL (70-105) 03/27/21 05:41 Calcium 8.9 mg/dL (8.4-10.2) 03/27/21 04:52 Phosphorus 3.30 mg/dL (2.5-4.5) 03/27/21 04:52 Magnesium 1.80 mg/dL (1.7-2.3) 03/27/21 04:52 Total Bilirubin 0.20 mg/dL (0.1-1.2) 03/26/21 04:26 Direct Bilirubin < 0.2 mg/dL (0-0.2) 03/25/21 11:48 Indirect Bilirubin 0.0 mg/dL 03/25/21 11:48 AST 25 units/L (5-40) 03/26/21 04:26 ALT 24 units/L (7-56) 03/26/21 04:26 Alkaline Phosphatase 105 units/L (35-129) 03/26/21 04:26 Total Protein 5.7 g/dL (6.3-8.2) L 03/26/21 04:26 Albumin 2.3 g/dL (3.9-5) L 03/26/21 04:26 Albumin/Globulin Ratio 0.7 % 03/26/21 04:26 Triglycerides 140 mg/dL (2-149) 03/25/21 05:27 Lipase 262 units/L (13-60) H 03/17/21 14:09 Urine Color Yellow (Yellow) 03/18/21 Unknown Urine Turbidity Clear (Clear) 03/18/21 Unknown Urine pH 5.0 (5.0-7.0) 03/18/21 Unknown Ur Specific [place] 1.019 (1.003-1.030) 03/18/21 Unknown Urine Protein 30 mg/dl mg/dL (Negative) 03/18/21 Unknown Urine Glucose (UA) Neg mg/dL (Negative) 03/18/21 Unknown Urine Ketones 20 mg/dL (Negative) 03/18/21 Unknown Urine Blood Neg (Negative) 03/18/21 Unknown Urine Nitrite Neg (Negative) 03/18/21 Unknown Urine Bilirubin Neg (Negative) 03/18/21 Unknown Urine Urobilinogen 2.0 mg/dL (<2.0) 03/18/21 Unknown Ur Leukocyte Esterase Neg (Negative) 03/18/21 Unknown Urine WBC (Auto) 3.0 /HPF (0.0-6.0) 03/18/21 Unknown Urine RBC (Auto) 2.0 /HPF (0.0-6.0) 03/18/21 Unknown Urine Mucus Few /HPF 03/18/21 Unknown Coronavirus (PCR) Negative (Negative) 03/19/21 Unknown [place]/IV: Voiding Method Toilet Active Medications - Current Medications Current Medications: Generic Name Dose Route Start Last Admin Trade Name Freq PRN Reason Stop Dose Admin Acetaminophen 650 mg 03/17/21 22:33 Acetaminophen 325 Mg Tab PO Q4H PRN Pain MILD(1-3)/Fever >100.5/CHRISTIANSEN Acetaminophen 650 mg 03/17/21 22:41 03/22/21 22:20 Acetaminophen 650 Mg Rect Supp [place] 650 mg Q4H PRN Administration Pain MILD(1-3)/Fever >100.5/CHRISTIANSEN Famotidine 20 mg 03/17/21 23:00 03/27/21 09:53 Famotidine 20 Mg/2 Ml Inj IV 20 mg BID PRASHANT Administration Heparin Sodium (Porcine) 5,000 unit 03/18/21 10:00 03/27/21 09:53 Heparin 5,000 Unit/1 Ml Vial SUB-Q 5,000 unit Q12HR PRASHANT Administration Hydromorphone HCl 0.5 mg 03/17/21 22:41 03/27/21 09:57 Hydromorphone 1 Mg/1 Ml Inj IV 0.5 mg Q3H PRN Administration Pain , Severe (7-10) Amino Acids/Electrolytes/Dextrose 2,000 mls @ 83.33 mls/hr 03/26/21 20:00 03/26/21 20:00 Tpn Adult IV 03/27/21 19:59 83.33 mls/hr DAILY@2000 PRASHANT Administration Protocol Metoclopramide HCl 10 mg 03/17/21 22:33 03/25/21 09:48 Metoclopramide 10 Mg/2 Ml Inj IV 10 mg Q6H PRN Administration Nausea And Vomiting Morphine Sulfate 2 mg 03/17/21 22:41 03/24/21 15:42 Morphine 2 Mg/1 Ml Inj IV 2 mg Q4H PRN Administration Pain, Moderate (4-6) Ondansetron HCl 4 mg 03/17/21 22:33 03/25/21 04:54 Ondansetron 4 Mg/2 Ml Inj IV 4 mg Q8H PRN Administration Nausea And Vomiting Phenol 1 spray 03/25/21 11:29 03/26/21 00:41 Phenol 1.4% 177 Ml Bottle MM 1 spray PRN PRN Administration Sore Throat Sodium Chloride 10 ml 03/17/21 22:33 03/24/21 01:15 Sodium Chloride 0.9% 10 Ml Flush Syringe IV 10 ml PRN PRN Administration LINE FLUSH Sodium Chloride 10 ml 03/18/21 10:00 03/27/21 09:54 Sodium Chloride 0.9% 10 Ml Flush Syringe IV 10 ml BID PRASHANT Administration Sodium Hypochlorite 1 applic 03/23/21 17:00 03/27/21 06:41 Sodium Hypochlorite, [place] Full Strength (0.5%) 473 Ml Topical Soln TP 1 applicatio Q12H PRASHANT Administration Nutrition/Malnutrition Assess - Dietary Evaluation Nutrition/Malnutrition Findings: Nutrition Notes Start: 03/19/21 11:28 Freq: Status: Active Protocol: Document 03/27/21 10:01 MEMO (Rec: 03/27/21 10:08 MEMO [id number]) Nutrition Notes Initial or Follow up Reassessment Current Diagnosis Small Bowel Obstruction Other Pertinent Diagnosis Pelvic abscess, (R) hemicolectomy, (L) pneumothorax Current Diet TPN at 83.33ml/hr Labs/Tests Na 136 Pertinent Medications Reviewed Height 5 ft 6 in Weight 68 kg [place] Body Weight (kg) 64.54 BMI 24.2 Weight Status Appropriate Subjective/Other Information Day 2 TPN. Percent of energy/protein needs met: 52% energy 100% pro Burn Absent Trauma Absent Minimum of two criteria No #1 Nutrition Diagnosis Altered GI function Diagnosis Progress(for reassessment Continues documentation) Is patient on ventilator? No Is Patient Ambulatory and/or Out of Bed Yes REE-([facility]-ambulatory/OOB) [ 2018.575 [id number]] Calculation Used for Recommendations [facility] Additional Notes Pro needs 1.25-1.5g/k- 102g/day Fluid needs 1ml/kcal Nutrition Intervention Nutrition Support: Continue TPN at 83.33ml/hr: MVI, Thiamine, 12.5% dextrose, 5% amino acids, 75%/25% chloride/acetate, 5mEq Mg, 100mEq Na, 5mmol Phos. Osmolality: 1320. Kcal 1,250 Protein (gm) 100 Carbohydrates (gm) 250 Fat (gm) 0 Fluid (mL) 2,000 Goal #1 TPN to meet at least 75% energy and pro needs Follow-Up By: 03/28/21 Additional Comments Labs in am: BMP, Mg, Phos
[2021-03-27] MEDS ORDERED: ONDANSETRON 4 MG/2 ML INJ IV PRN (14:22)
--- NOTE | 2021-03-27 14:56 | Progress Note ---
Assessment and Plan (1) SBO (small bowel obstruction) Current Visit: Yes Status: Acute Plan to address problem: 35 yo M s/p 1) Right colectomy with ileocolonic anastomosis, 2) Drainage of pelvic abscess, 3) Placement of left subclavian CVL, 4)Placement L sided chest tube on 03/19/21 CXR - L chest tube in place, no PTX. L lower lung field is not visible on this C XR Plan: 1. NPO except ice chips 2. NGT to LIWS - will dc once output decreases. 3. IV abx - rocephin order ended yesterday. Will start zosyn 4. TPN 5. rpt CXR in am - if no PTX, will dc chest tube 6. OOB/ambulate 7. Abdominal binder 8. DVT and GI ppx 9. Daily labs 10. prn pain control 11. BETH drain Thank you, please call with questions. Subjective Date of service: 03/27/21 Narrative: Pt seen and examined. Feels better today and has no acute complaints. Tm 100.4. Pain controlled. Having flatus but no BM since yesterday. Dressing changed by RN today. Objective Vital Signs - 12hr 03/27/21 03/27/21 03/27/21 03:31 05:00 08:13 Temperature 99.0 F 98.7 F Pulse Rate 77 84 73 Pulse Rate [ From Monitor] Respiratory 17 18 Rate Blood Pressure 144/96 142/89 O2 Sat by Pulse 99 98 Oximetry 03/27/21 03/27/21 10:00 10:59 Temperature Pulse Rate Pulse Rate [ 80 From Monitor] Respiratory 18 Rate Blood Pressure O2 Sat by Pulse 98 8 L Oximetry - General physical appearance Narrative Exam: Gen; AAOx3. NAD ENT: NGT with gastric output. CV: s1, S2+ Resp: even and unlabored. L sided chest tube without leak - on water seal via pleurevac, no drainage Abd: soft, ND, mildly tender in midline at incision. Incision is clean with dressing in place. BETH dark serosang Ext: no c/c/e NGT - 950 cc/24h BETH - ??710cc/24h - likely recorded in error. Suspect closer to 10cc based on past drainage - Labs 03/27/21 04:52 03/27/21 04:52 Diabetes panel 03/27/21 Range/Units 04:52 Sodium 136 L (137-145) mmol/L Potassium 3.9 (3.6-5.0) mmol/L Chloride 99.4 (98-107) mmol/L Carbon Dioxide 28 (22-30) mmol/L BUN 10 (9-20) mg/dL Creatinine 0.7 L (0.8-1.3) mg/dL Glucose 94 (75-100) mg/dL Calcium 8.9 (8.4-10.2) mg/dL Calcium panel 03/27/21 Range/Units 04:52 Calcium 8.9 (8.4-10.2) mg/dL Phosphorus 3.30 (2.5-4.5) mg/dL Pituitary panel 03/27/21 Range/Units 04:52 Sodium 136 L (137-145) mmol/L Potassium 3.9 (3.6-5.0) mmol/L Chloride 99.4 (98-107) mmol/L Carbon Dioxide 28 (22-30) mmol/L BUN 10 (9-20) mg/dL Creatinine 0.7 L (0.8-1.3) mg/dL Glucose 94 (75-100) mg/dL Calcium 8.9 (8.4-10.2) mg/dL Adrenal panel 03/27/21 Range/Units 04:52 Sodium 136 L (137-145) mmol/L Potassium 3.9 (3.6-5.0) mmol/L Chloride 99.4 (98-107) mmol/L Carbon Dioxide 28 (22-30) mmol/L BUN 10 (9-20) mg/dL Creatinine 0.7 L (0.8-1.3) mg/dL Glucose 94 (75-100) mg/dL Calcium 8.9 (8.4-10.2) mg/dL
[2021-03-27] MEDS: PIPERACIL/TAZOBACTA 4.5/NS 100 4.5 GM/100 ML VIAL IV SCH ×2 (16:23→23:51)
[2021-03-27] MEDS ORDERED: TOTAL PARENTERAL NUTRITION 2,000 ML IV SCH (20:00)
[2021-03-28] MEDS: HYDROmorphone 1 MG/1 ML INJ IV PRN ×6 (02:58→22:07)
[2021-03-28] MEDS: PIPERACIL/TAZOBACTA 4.5/NS 100 4.5 GM/100 ML VIAL IV SCH (06:10)
[2021-03-28] MEDS: SODIUM HYPOCHLORITE, DAKIN'S FULL STRENGTH (0.5%) 473 ML TOPICAL SOLN TP SCH ×2 (06:12→16:18)
[2021-03-28 07:05] LABS: BUN/Creatinine Ratio 16; Blood Urea Nitrogen 13 mg/dL (9-20); Calcium 9.2 mg/dL (8.4-10.2); Hemolysis Index 4
--- NOTE | 2021-03-28 09:48 | XRay Report ---
XR abd series w cxr 1V INDICATION / CLINICAL INFORMATION: sbo, left ptx. COMPARISON: 03/27/2021 FINDINGS: TUBES / LINES: Left thoracostomy tube and left-sided central venous catheter are stable. Nasogastric tube tip remains over the stomach. Side-port is located at the GE junction. Surgical drain in the lef t pelvis is unchanged. BOWEL GAS PATTERN: Mildly dilated loops of small bowel again seen throughout the abdomen, unchanged. FREE AIR / EXTRALUMINAL GAS: None seen. ADDITIONAL FINDINGS: No significant additional findings. CHEST: Left basilar opacity remains. No discrete pneumothorax. No sizable pleural effusion. IMPRESSION: 1. No significant interval change. Signer Name: Jose M Odonnell MD Signed: 03/28/2021 9:44 AM Workstation Name: [id number]
[2021-03-28] MEDS: HEPARIN 5,000 UNIT/1 ML VIAL SUB-Q SCH ×2 (09:59→21:42)
[2021-03-28] MEDS: FAMOTIDINE 20 MG/2 ML INJ IV SCH ×2 (09:59→21:38)
--- NOTE | 2021-03-28 10:32 | Progress Note ---
Assessment and Plan Assessment and plan: Assessment and Plan Assessment and plan: High-grade severe small bowel obstruction with leukocytosis and low-grade fever at presentation Patient had the first episode about 3 months ago Patient did not seek medical attention, symptoms resolved after 4 days No known past medical or surgical history Hyponatremia likely from vomiting, resolved Laparotomy on 03/18 revealed pelvic abscess possibly from a ruptured appendix, IBD, awaiting histopathology report Surgical cultures growing E. coli sensitive to ceftriaxone, Levaquin and Zosyn Status post right hemicolectomy and ileocolic end-to-end anastomosis Leukocytosis resolving but low grade fever persists. Blood cultures negative, CXR shows atelectasis which could be causing the fever. Left pneumothorax with central line placement, s/p chest tube placement, pneumothorax improved but not resolved yet. Plan: Remains stable postoperatively, general surgery following closely Low-grade fever with pelvic abscess, infected cyst CXR, needs aggressive incentive spirometry No output from left chest tube Continue n.p.o. until bowel function returns Continue Zosyn empirically Continue IV fluids Continue NG suction Monitor WBC, electrolytes and renal function Pain medication and antiemetic as needed. Discussed with the patient, nursing staff 03/23: Continue supportive care. Continue wound management. Chest tube management per surgery. Pain control. Discussed with nursing staff at bedside 03/24: KUB still shows persistent ileus. Dietitian consulted for TPN initiation. Continue supportive care we will downgrade to telemetry 03/25: Patient seen and examined this morning had some increased output from the NG tube that was more dark in concentration hemoglobin remained stable but co ncerning that there may be some coffee-ground emesis. Will monitor H&H this afternoon to see if there is any further drop. Will await surgical reevaluation. I will hold heparin for now. Chest tube remains in place. Wound care management discussed with nursing staff. Continue pain control 03/26: Patient seen and examined, resting comfortable, Continue supportive care, further management by Surgery. Will restart heparin in am if clinically stable. Replace K 03/27: Patient seen and examined, supportive care, continue current surgical recommendation. Monitor H/H 03/28/21 Patient is seen and examined. Patient is speaking but denies any nausea no vomiting. Patient is on NG suction. Chest x-ray showed left basilar opacity. No discrete pneumothorax. No sizable pleural effusion. X-ray of the abdomen shows mildly dilated loops of small bowel again seen throughout the abdomen unchanged. Continue current management. N.p.o. NG tube to low intermittent suction. Out of bed to chair and ambulate. Surgery follow-up. Recheck CBC BMP in the morning. History Interval history: Patient is seen and examined. Patient is speaking but denies any nausea no vomiting. Patient is on NG suction. Chest x-ray showed left basilar opacity. No discrete pneumothorax. No sizable pleural effusion. X-ray of the abdomen shows mildly dilated loops of small bowel again seen throughout the abdomen unchanged Hospitalist Physical - Constitutional Vitals: Temp Pulse Resp BP Pulse Ox 98.5 F 85 18 127/84 96 03/28/21 08:28 03/28/21 08:28 03/28/21 08:28 03/28/21 08:28 03/28/21 08:28 General appearance: Present: no acute distress, other (Alert and oriented, looks comfortable) - EENT Eyes: Present: PERRL, irregular pupil ENT: clear oral mucosa, dentition normal - Neck Neck: Present: supple, normal ROM - Respiratory Respiratory effort: normal Respiratory: bilateral: diminished - Cardiovascular Rhythm: regular Heart Sounds: Present: S1 & S2 - Extremities Extremities: no ischemia, pulses intact, No edema Peripheral Pulses: within normal limits - Abdominal General gastrointestinal: soft, non-tender, non-distended, hypoactive bowel sounds - Integumentary Integumentary: Present: clear, warm, dry - Psychiatric Psychiatric: appropriate mood/affect, intact judgment & insight - Neurologic Neurologic: CNII-XII intact, moves all extremities - Allied Health Allied health notes reviewed: nursing Results - Labs CBC & Chem 7: 03/27/21 04:52 03/28/21 05:09 Labs: Laboratory Last Values WBC 7.6 K/mm3 (4.5-11.0) 03/27/21 04:52 RBC 2.99 M/mm3 (3.65-5.03) L 03/27/21 04:52 Hgb 9.9 gm/dl (11.8-15.2) L 03/27/21 04:52 Hct 29.7 % (35.5-45.6) L 03/27/21 04:52 MCV 99 fl (84-94) H 03/27/21 04:52 MCH 33 pg (28-32) H 03/27/21 04:52 MCHC 34 % (32-34) 03/27/21 04:52 RDW 12.6 % (13.2-15.2) L 03/27/21 04:52 Plt Count 470 K/mm3 (140-440) H 03/27/21 04:52 Lymph % (Auto) 12.7 % (13.4-35.0) L 03/25/21 05:27 [place] % (Auto) 10.3 % (0.0-7.3) H 03/25/21 05:27 Eos % (Auto) 1.2 % (0.0-4.3) 03/25/21 05:27 Baso % (Auto) 0.5 % (0.0-1.8) 03/25/21 05:27 Lymph # (Auto) 1.2 K/mm3 (1.2-5.4) 03/25/21 05:27 [place] # (Auto) 1.0 K/mm3 (0.0-0.8) H 03/25/21 05:27 Eos # (Auto) 0.1 K/mm3 (0.0-0.4) 03/25/21 05:27 Baso # (Auto) 0.1 K/mm3 (0.0-0.1) 03/25/21 05:27 Seg Neutrophils % 75.3 % (40.0-70.0) H 03/25/21 05:27 Seg Neutrophils # 7.2 K/mm3 (1.8-7.7) 03/25/21 05:27 Sodium 135 mmol/L (137-145) L 03/28/21 05:09 Potassium 4.2 mmol/L (3.6-5.0) 03/28/21 05:09 Chloride 95.5 mmol/L (98-107) L 03/28/21 05:09 Carbon Dioxide 25 mmol/L (22-30) 03/28/21 05:09 Anion Gap 19 mmol/L 03/28/21 05:09 BUN 13 mg/dL (9-20) 03/28/21 05:09 Creatinine 0.8 mg/dL (0.8-1.3) 03/28/21 05:09 Estimated GFR > 60 ml/min 03/28/21 05:09 BUN/Creatinine Ratio 16 % 03/28/21 05:09 Glucose 91 mg/dL (75-100) 03/28/21 05:09 POC Glucose 99 mg/dL (70-105) 03/27/21 16:40 Calcium 9.2 mg/dL (8.4-10.2) 03/28/21 05:09 Phosphorus 4.10 mg/dL (2.5-4.5) D 03/28/21 05:09 Magnesium 2.00 mg/dL (1.7-2.3) 03/28/21 05:09 Total Bilirubin 0.20 mg/dL (0.1-1.2) 03/26/21 04:26 Direct Bilirubin < 0.2 mg/dL (0-0.2) 03/25/21 11:48 Indirect Bilirubin 0.0 mg/dL 03/25/21 11:48 AST 25 units/L (5-40) 03/26/21 04:26 ALT 24 units/L (7-56) 03/26/21 04:26 Alkaline Phosphatase 105 units/L (35-129) 03/26/21 04:26 Total Protein 5.7 g/dL (6.3-8.2) L 03/26/21 04:26 Albumin 2.3 g/dL (3.9-5) L 03/26/21 04:26 Albumin/Globulin Ratio 0.7 % 03/26/21 04:26 Triglycerides 140 mg/dL (2-149) 03/25/21 05:27 Lipase 262 units/L (13-60) H 03/17/21 14:09 Urine Color Yellow (Yellow) 03/18/21 Unknown Urine Turbidity Clear (Clear) 03/18/21 Unknown Urine pH 5.0 (5.0-7.0) 03/18/21 Unknown Ur Specific Protem 1.019 (1.003-1.030) 03/18/21 Unknown Urine Protein 30 mg/dl mg/dL (Negative) 03/18/21 Unknown Urine Glucose (UA) Neg mg/dL (Negative) 03/18/21 Unknown Urine Ketones 20 mg/dL (Negative) 03/18/21 Unknown Urine Blood Neg (Negative) 03/18/21 Unknown Urine Nitrite Neg (Negative) 03/18/21 Unknown Urine Bilirubin Neg (Negative) 03/18/21 Unknown Urine Urobilinogen 2.0 mg/dL (<2.0) 03/18/21 Unknown Ur Leukocyte Esterase Neg (Negative) 03/18/21 Unknown Urine WBC (Auto) 3.0 /HPF (0.0-6.0) 03/18/21 Unknown Urine RBC (Auto) 2.0 /HPF (0.0-6.0) 03/18/21 Unknown Urine Mucus Few /HPF 03/18/21 Unknown Coronavirus (PCR) Negative (Negative) 03/19/21 Unknown Microbiology: Microbiology 03/18/21 Unknown Abdomen Anaerobic Culture - Preliminary [place]/IV: Voiding Method Urinal Active Medications - Current Medications Current Medications: Generic Name Dose Route Start Last Admin Trade Name Freq PRN Reason Stop Dose Admin Acetaminophen 650 mg 03/17/21 22:33 Acetaminophen 325 Mg Tab PO Q4H PRN Pain MILD(1-3)/Fever >100.5/CHRISTIANSEN Acetaminophen 650 mg 03/17/21 22:41 03/22/21 22:20 Acetaminophen 650 Mg Rect Supp MA 650 mg Q4H PRN Administration Pain MILD(1-3)/Fever >100.5/CHRISTIANSEN Famotidine 20 mg 03/17/21 23:00 03/28/21 09:59 Famotidine 20 Mg/2 Ml Inj IV 20 mg BID PRASHANT Administration Heparin Sodium (Porcine) 5,000 unit 03/18/21 10:00 03/28/21 09:59 Heparin 5,000 Unit/1 Ml Vial SUB-Q 5,000 unit Q12HR PRASHANT Administration Hydromorphone HCl 0.5 mg 03/17/21 22:41 03/28/21 09:45 Hydromorphone 1 Mg/1 Ml Inj IV 0.5 mg Q3H PRN Administration Pain , Severe (7-10) Amino Acids/Electrolytes/Dextrose 2,000 mls @ 83.33 mls/hr 03/27/21 20:00 03/27/21 19:26 Tpn Adult IV 03/28/21 19:59 83.33 mls/hr DAILY@2000 PRASHANT Administration Protocol Piperacillin Sod/Tazobactam Sod 4.5 gm in 100 mls @ 200 mls/hr 03/27/21 15:00 03/28/21 06:10 Zosyn/Ns 4.5gm/100ml IV 200 mls/hr Q8H PRASHANT Administration Protocol Morphine Sulfate 2 mg 03/17/21 22:41 03/24/21 15:42 Morphine 2 Mg/1 Ml Inj IV 2 mg Q4H PRN Administration Pain, Moderate (4-6) Ondansetron HCl 4 mg 03/27/21 14:22 Ondansetron 4 Mg/2 Ml Inj IV Q6H PRN Nausea And Vomiting Phenol 1 spray 03/25/21 11:29 03/26/21 00:41 Phenol 1.4% 177 Ml Bottle MM 1 spray PRN PRN Administration Sore Throat Sodium Chloride 10 ml 03/17/21 22:33 03/24/21 01:15 Sodium Chloride 0.9% 10 Ml Flush Syringe IV 10 ml PRN PRN Administration LINE FLUSH Sodium Chloride 10 ml 03/18/21 10:00 03/28/21 09:59 Sodium Chloride 0.9% 10 Ml Flush Syringe IV 10 ml BID PRASHANT Administration Sodium Hypochlorite 1 applic 03/23/21 17:00 03/28/21 06:12 Sodium Hypochlorite, [place]'s Full Strength (0.5%) 473 Ml Topical Soln TP 1 applicatio Q12H PRASHANT Administration Nutrition/Malnutrition Assess - Dietary Evaluation Nutrition/Malnutrition Findings: Nutrition Notes Start: 03/19/21 11:28 Freq: Status: Active Protocol: Document 03/28/21 08:40 MEMO (Rec: 03/28/21 08:43 MEMO [id number]) Nutrition Notes Initial or Follow up Reassessment Current Diagnosis Small Bowel Obstruction Other Pertinent Diagnosis Pelvic abscess, (R) hemicolectomy, (L) pneumothorax Current Diet TPN at 83.33ml/hr Labs/Tests Na 135 Cl 95.5 Pertinent Medications Reviewed Height 5 ft 6 in Weight 67.8 kg [place] Body Weight (kg) 64.54 BMI 24.1 Weight Status Appropriate Subjective/Other Information Day 3 TPN. Percent of energy/protein needs met: 62% energy 100% pro Burn Absent Trauma Absent Minimum of two criteria No #1 Nutrition Diagnosis Altered GI function Diagnosis Progress(for reassessment Continues documentation) Is patient on ventilator? No Is Patient Ambulatory and/or Out of Bed Yes [facility] [ 2014.975 [id number]] Calculation Used for Recommendations [facility] Additional Notes Pro needs 1.25-1.5g/k- 102g/day Fluid needs 1ml/kcal Nutrition Intervention Nutrition Support: Continue TPN at 83.33ml/hr: MVI, Thiamine, 15% dextrose, 100%/0% chloride/acetate, 135mEq Na, 3mmol Phos. Osmolality: 1480. Kcal 1,420 Protein (gm) 100 Carbohydrates (gm) 300 Fat (gm) 0 Fluid (mL) 2,000 Goal #1 TPN to meet at least 75% energy and pro needs Follow-Up By: 03/29/21 Additional Comments Labs in am: BMP, Mg, Phos - Malnutrition Assessment Minimum of two criteria: Yes - Attestation Statement I have reviewed and agreed w/ Malnutrition eval & tx plan: Yes
--- NOTE | 2021-03-28 14:36 | Progress Note ---
Assessment and Plan (1) SBO (small bowel obstruction) Current Visit: Yes Status: Acute Plan to address problem: (2) pneumothorax Current Visit: Yes Status: Acute Plan to address problem: 35 yo M s/p 1) Right colectomy with ileocolonic anastomosis, 2) Drainage of pelvic abscess, 3) Placement of left subclavian CVL, 4)Placement L sided chest tube on 03/19/21 CXR - L chest tube in place, no PTX. AXR - mildly distended loops of small bowel Plan: 1. NPO except ice chips 2. NGT to LIWS - will dc once output decreases. 3. IV abx 4. TPN 5. CXR in am to follow up chest tube removal 6. OOB/ambulate 7. Abdominal binder 8. DVT and GI ppx 9. Daily labs 10. prn pain control - added toradol IV prn 11. BETH drain Thank you, please call with questions. Subjective Date of service: 03/28/21 Narrative: Patient seen and examined. He has no acute complaints. Afebrile. He is passing flatus but no bowel movement. His pain is well controlled. He denies chest pain or shortness of breath. Objective Vital Signs - 12hr 03/28/21 03/28/21 03/28/21 04:21 07:43 08:28 Temperature 98.4 F 98.5 F Pulse Rate 81 85 Pulse Rate [ 78 From Monitor] Respiratory 18 18 18 Rate Blood Pressure 121/78 127/84 O2 Sat by Pulse 99 8 L 96 Oximetry 03/28/21 08:40 Temperature Pulse Rate 84 Pulse Rate [ From Monitor] Respiratory Rate Blood Pressure O2 Sat by Pulse Oximetry - General physical appearance Narrative Exam: Gen; AAOx3. NAD ENT: NGT with gastric output, dark CV: s1, S2+ Resp: even and unlabored. L sided chest tube without leak - on water seal via pleurevac, no drainage. Dressing removed and suture cut, chest tube removed on max inspiration and occlusive dressing applied. Pt tolerated well. Abd: soft, ND, mildly tender in midline at incision. Incision is clean with red granulation tissue, minimal slough at base - fascial sutures visible, fascia intact. dressing in place. BETH serous Ext: no c/c/e NGT - 1710 cc/24h BETH - 10cc/24h - Labs 03/27/21 04:52 03/28/21 05:09 Diabetes panel 03/28/21 Range/Units 05:09 Sodium 135 L (137-145) mmol/L Potassium 4.2 (3.6-5.0) mmol/L Chloride 95.5 L (98-107) mmol/L Carbon Dioxide 25 (22-30) mmol/L BUN 13 (9-20) mg/dL Creatinine 0.8 (0.8-1.3) mg/dL Glucose 91 (75-100) mg/dL Calcium 9.2 (8.4-10.2) mg/dL Calcium panel 03/28/21 Range/Units 05:09 Calcium 9.2 (8.4-10.2) mg/dL Phosphorus 4.10 D (2.5-4.5) mg/dL Pituitary panel 03/28/21 Range/Units 05:09 Sodium 135 L (137-145) mmol/L Potassium 4.2 (3.6-5.0) mmol/L Chloride 95.5 L (98-107) mmol/L Carbon Dioxide 25 (22-30) mmol/L BUN 13 (9-20) mg/dL Creatinine 0.8 (0.8-1.3) mg/dL Glucose 91 (75-100) mg/dL Calcium 9.2 (8.4-10.2) mg/dL Adrenal panel 03/28/21 Range/Units 05:09 Sodium 135 L (137-145) mmol/L Potassium 4.2 (3.6-5.0) mmol/L Chloride 95.5 L (98-107) mmol/L Carbon Dioxide 25 (22-30) mmol/L BUN 13 (9-20) mg/dL Creatinine 0.8 (0.8-1.3) mg/dL Glucose 91 (75-100) mg/dL Calcium 9.2 (8.4-10.2) mg/dL
[2021-03-28] MEDS: cefTRIAXone/NS 2 GM/100 ML 2 GM/100 ML BAG IV SCH (16:16)
[2021-03-28] MEDS ORDERED: TOTAL PARENTERAL NUTRITION 2,000 ML IV SCH (20:00)
[2021-03-29] MEDS: HYDROmorphone 1 MG/1 ML INJ IV PRN ×7 (01:26→21:00)
[2021-03-29] MEDS: SODIUM HYPOCHLORITE, DAKIN'S FULL STRENGTH (0.5%) 473 ML TOPICAL SOLN TP SCH ×2 (04:38→18:03)
--- NOTE | 2021-03-29 08:32 | XRay Report ---
CHEST - 1 VIEW 0803 hours INDICATION: post chest tube removal COMPARISON: 03/27/2021 FINDINGS: Support devices: Left venous catheter is in good position in the lower SVC. The nasogastric tube ter minates just beyond the GE junction which is unchanged. Advancement by 5-10 cm is recommended. A smal l gauge left chest tube has been removed. Heart: Stable cardiomediastinal silhouette. Lungs/pleura: A tiny left apical pneumothorax is identified measuring 1-2 mm in thickness. Left lowe r lung infiltrate or atelectasis has improved slightly. The right lung remains clear. Additional findings: None. IMPRESSION: Left chest tube removal. A tiny left apical pneumothorax is identified estimated at 1%. Mild improvem ent in left lower lung opacification. Nasogastric tube as described. Signer Name: Wale Cardenas Jr, MD Signed: 03/29/2021 8:27 AM Workstation Name: [id number]
[2021-03-29 10:09] LABS: BUN/Creatinine Ratio 20; Blood Urea Nitrogen 16 mg/dL (9-20); Calcium 9.6 mg/dL (8.4-10.2); Hemolysis Index 5
[2021-03-29] MEDS: FAMOTIDINE 20 MG/2 ML INJ IV SCH ×2 (10:21→21:00)
[2021-03-29] MEDS: HEPARIN 5,000 UNIT/1 ML VIAL SUB-Q SCH ×2 (10:22→21:00)
--- NOTE | 2021-03-29 10:27 | Progress Note ---
Assessment and Plan Assessment and plan: High-grade severe small bowel obstruction with leukocytosis and low-grade fever at presentation Patient had the first episode about 3 months ago Patient did not seek medical attention, symptoms resolved after 4 days No known past medical or surgical history Hyponatremia likely from vomiting, resolved Laparotomy on 03/18 revealed pelvic abscess possibly from a ruptured appendix, IBD, awaiting histopathology report Surgical cultures growing E. coli sensitive to ceftriaxone, Levaquin and Zosyn Status post right hemicolectomy and ileocolic end-to-end anastomosis Leukocytosis resolving but low grade fever persists. Blood cultures negative, CXR shows atelectasis which could be causing the fever. Left pneumothorax with central line placement, s/p chest tube placement, pneumothorax improved but not resolved yet. Plan: Remains stable postoperatively, general surgery following closely Low-grade fever with pelvic abscess, infected cyst CXR, needs aggressive incentive spirometry No output from left chest tube Continue n.p.o. until bowel function returns Continue Zosyn empirically Continue IV fluids Continue NG suction Monitor WBC, electrolytes and renal function Pain medication and antiemetic as needed. Discussed with the patient, nursing staff 03/23: Continue supportive care. Continue wound management. Chest tube management per surgery. Pain control. Discussed with nursing staff at bedside 03/24: KUB still shows persistent ileus. Dietitian consulted for TPN initiation. Continue supportive care we will downgrade to telemetry 03/25: Patient seen and examined this morning had some increased output from the NG tube that was more dark in concentration hemoglobin remained stable but concerning that there may be some coffee-ground emesis. Will monitor H&H this afternoon to see if there is any further drop. Will await surgical reevaluation. I will hold heparin for now. Chest tube remains in place. Wound care management discussed with nursing staff. Continue pain control 03/26: Patient seen and examined, resting comfortable, Continue supportive care, further management by Surgery. Will restart heparin in am if clinically stable. Replace K 03/27: Patient seen and examined, supportive care, continue current surgical recommendation. Monitor H/H 03/28/21 Patient is seen and examined. Patient is speaking but denies any nausea no vomiting. Patient is on NG suction. Chest x-ray showed left basilar opacity. No discrete pneumothorax. No sizable pleural effusion. X-ray of the abdomen shows mildly dilated loops of small bowel again seen throughout the abdomen unchanged. Continue current management. N.p.o. NG tube to low intermittent suction. Out of bed to chair and ambulate. Surgery follow-up. Recheck CBC BMP in the morning. 03/29: Continue pain control. Out of bed to chair as recommended. Continue NG tube until cleared by surgery for removal based on output. Plan discussed with the patient he verbalized understanding. History Interval history: Patient seen and examined today no new complaints. Interval removal of chest tube noted. NG tube still in place minimal drainage this morning so far Hospitalist Physical - Physical exam Narrative exam: General appearance: Present: no acute distress, other (Alert and oriented, looks comfortable) - EENT Eyes: Present: PERRL, EOM intact ENT: clear oral mucosa, other (NG tube in place) - Neck Neck: Present: supple - Respiratory Respiratory effort: normal Respiratory: bilateral: diminished (Diminished breath sounds in the left thorax. Chest tube in place. No subcutaneous emphysema.) - Cardiovascular Rhythm: regular - Extremities Extremities: No edema - Abdominal General gastrointestinal: soft, non-tender, non-distended, absent bowel sounds, other (Dressings over surgical incision in place) - Integumentary Integumentary: Absent: jaundice, rash - Psychiatric Psychiatric: appropriate mood/affect - Neurologic Neurologic: no focal deficits - Constitutional Vitals: Temp Pulse Resp BP Pulse Ox 99 F 99 H 18 132/78 98 03/29/21 08:00 03/29/21 08:00 03/29/21 08:00 03/29/21 08:00 03/29/21 08:00 General appearance: Present: no acute distress, other (Alert and oriented, looks comfortable) Results - Labs CBC & Chem 7: 03/27/21 04:52 03/29/21 09:32 Labs: Laboratory Last Values WBC 7.6 K/mm3 (4.5-11.0) 03/27/21 04:52 RBC 2.99 M/mm3 (3.65-5.03) L 03/27/21 04:52 Hgb 9.9 gm/dl (11.8-15.2) L 03/27/21 04:52 Hct 29.7 % (35.5-45.6) L 03/27/21 04:52 MCV 99 fl (84-94) H 03/27/21 04:52 MCH 33 pg (28-32) H 03/27/21 04:52 MCHC 34 % (32-34) 03/27/21 04:52 RDW 12.6 % (13.2-15.2) L 03/27/21 04:52 Plt Count 470 K/mm3 (140-440) H 03/27/21 04:52 Lymph % (Auto) 12.7 % (13.4-35.0) L 03/25/21 05:27 [place] % (Auto) 10.3 % (0.0-7.3) H 03/25/21 05:27 Eos % (Auto) 1.2 % (0.0-4.3) 03/25/21 05:27 Baso % (Auto) 0.5 % (0.0-1.8) 03/25/21 05:27 Lymph # (Auto) 1.2 K/mm3 (1.2-5.4) 03/25/21 05:27 [place] # (Auto) 1.0 K/mm3 (0.0-0.8) H 03/25/21 05:27 Eos # (Auto) 0.1 K/mm3 (0.0-0.4) 03/25/21 05:27 Baso # (Auto) 0.1 K/mm3 (0.0-0.1) 03/25/21 05:27 Seg Neutrophils % 75.3 % (40.0-70.0) H 03/25/21 05:27 Seg Neutrophils # 7.2 K/mm3 (1.8-7.7) 03/25/21 05:27 Sodium 135 mmol/L (137-145) L 03/29/21 09:32 Potassium 4.6 mmol/L (3.6-5.0) 03/29/21 09:32 Chloride 97.7 mmol/L (98-107) L 03/29/21 09:32 Carbon Dioxide 26 mmol/L (22-30) 03/29/21 09:32 Anion Gap 16 mmol/L 03/29/21 09:32 BUN 16 mg/dL (9-20) 03/29/21 09:32 Creatinine 0.8 mg/dL (0.8-1.3) 03/29/21 09:32 Estimated GFR > 60 ml/min 03/29/21 09:32 BUN/Creatinine Ratio 20 % 03/29/21 09:32 Glucose 116 mg/dL (75-100) H 03/29/21 09:32 POC Glucose 108 mg/dL (70-105) H 03/29/21 05:13 Calcium 9.6 mg/dL (8.4-10.2) 03/29/21 09:32 Phosphorus 3.70 mg/dL (2.5-4.5) 03/29/21 09:32 Magnesium 2.10 mg/dL (1.7-2.3) 03/29/21 09:32 Total Bilirubin 0.20 mg/dL (0.1-1.2) 03/26/21 04:26 Direct Bilirubin < 0.2 mg/dL (0-0.2) 03/25/21 11:48 Indirect Bilirubin 0.0 mg/dL 03/25/21 11:48 AST 25 units/L (5-40) 03/26/21 04:26 ALT 24 units/L (7-56) 03/26/21 04:26 Alkaline Phosphatase 105 units/L (35-129) 03/26/21 04:26 Total Protein 5.7 g/dL (6.3-8.2) L 03/26/21 04:26 Albumin 2.3 g/dL (3.9-5) L 03/26/21 04:26 Albumin/Globulin Ratio 0.7 % 03/26/21 04:26 Triglycerides 140 mg/dL (2-149) 03/25/21 05:27 Lipase 262 units/L (13-60) H 03/17/21 14:09 Urine Color Yellow (Yellow) 03/18/21 Unknown Urine Turbidity Clear (Clear) 03/18/21 Unknown Urine pH 5.0 (5.0-7.0) 03/18/21 Unknown Ur Specific [place] 1.019 (1.003-1.030) 03/18/21 Unknown Urine Protein 30 mg/dl mg/dL (Negative) 03/18/21 Unknown Urine Glucose (UA) Neg mg/dL (Negative) 03/18/21 Unknown Urine Ketones 20 mg/dL (Negative) 03/18/21 Unknown Urine Blood Neg (Negative) 03/18/21 Unknown Urine Nitrite Neg (Negative) 03/18/21 Unknown Urine Bilirubin Neg (Negative) 03/18/21 Unknown Urine Urobilinogen 2.0 mg/dL (<2.0) 03/18/21 Unknown Ur Leukocyte Esterase Neg (Negative) 03/18/21 Unknown Urine WBC (Auto) 3.0 /HPF (0.0-6.0) 03/18/21 Unknown Urine RBC (Auto) 2.0 /HPF (0.0-6.0) 03/18/21 Unknown Urine Mucus Few /HPF 03/18/21 Unknown Coronavirus (PCR) Negative (Negative) 03/19/21 Unknown [place]/IV: Voiding Method Urinal Active Medications - Current Medications Current Medications: Generic Name Dose Route Start Last Admin Trade Name Freq PRN Reason Stop Dose Admin Acetaminophen 650 mg 03/17/21 22:33 Acetaminophen 325 Mg Tab PO Q4H PRN Pain MILD(1-3)/Fever >100.5/CHRISTIANSEN Acetaminophen 650 mg 03/17/21 22:41 03/22/21 22:20 Acetaminophen 650 Mg Rect Supp [place] 650 mg Q4H PRN Administration Pain MILD(1-3)/Fever >100.5/CHRISTIANSEN Famotidine 20 mg 03/17/21 23:00 03/28/21 21:38 Famotidine 20 Mg/2 Ml Inj IV 20 mg BID PRASHANT Administration Heparin Sodium (Porcine) 5,000 unit 03/18/21 10:00 03/28/21 21:42 Heparin 5,000 Unit/1 Ml Vial SUB-Q 5,000 unit Q12HR PRASHANT Administration Hydromorphone HCl 0.5 mg 03/17/21 22:41 03/29/21 08:28 Hydromorphone 1 Mg/1 Ml Inj IV 0.5 mg Q3H PRN Administration Pain , Severe (7-10) Amino Acids/Electrolytes/Dextrose 2,000 mls @ 83.33 mls/hr 03/28/21 20:00 03/28/21 21:39 Tpn Adult IV 03/29/21 19:59 83.33 mls/hr DAILY@2000 PRASHANT Administration Protocol Ceftriaxone Sodium 2 gm in 100 mls @ 200 mls/hr 03/28/21 15:00 03/28/21 16:16 Rocephin/Ns 2 Gm/100 Ml IV 03/31/21 15:29 200 mls/hr Q24H PRASHANT Administration Protocol Morphine Sulfate 2 mg 03/17/21 22:41 03/24/21 15:42 Morphine 2 Mg/1 Ml Inj IV 2 mg Q4H PRN Administration Pain, Moderate (4-6) Ondansetron HCl 4 mg 03/27/21 14:22 Ondansetron 4 Mg/2 Ml Inj IV Q6H PRN Nausea And Vomiting Phenol 1 spray 03/25/21 11:29 03/26/21 00:41 Phenol 1.4% 177 Ml Bottle MM 1 spray PRN PRN Administration Sore Throat Sodium Chloride 10 ml 03/17/21 22:33 03/28/21 21:39 Sodium Chloride 0.9% 10 Ml Flush Syringe IV 10 ml PRN PRN Administration LINE FLUSH Sodium Chloride 10 ml 03/18/21 10:00 03/28/21 22:00 Sodium Chloride 0.9% 10 Ml Flush Syringe IV 10 ml BID PRASHANT Administration Sodium Hypochlorite 1 applic 03/23/21 17:00 03/29/21 04:38 Sodium Hypochlorite, Dakin's Full Strength (0.5%) 473 Ml Topical Soln TP 1 applicatio Q12H PRASHANT Administration Nutrition/Malnutrition Assess - Dietary Evaluation Nutrition/Malnutrition Findings: Nutrition Notes Start: 03/19/21 11:28 Freq: Status: Active Protocol: Document 03/29/21 09:45 CHANCE (Rec: 03/29/21 10:02 CHANCE [id number]) Nutrition Notes Initial or Follow up Reassessment Current Diagnosis Small Bowel Obstruction Other Pertinent Diagnosis Pelvic abscess, (R) hemicolectomy, (L) pneumothorax Current Diet TPN at 83.33ml/hr Height 5 ft 6 in Weight 67.8 kg [place] Body Weight (kg) 64.54 BMI 24.1 Weight Status Appropriate Subjective/Other Information Day 4 TPN Burn Absent Trauma Absent GI Symptoms Other Food Allergy No Current % PO Other Minimum of two criteria No #1 Nutrition Diagnosis Altered GI function Diagnosis Progress(for reassessment Continues documentation) Is patient on ventilator? No Is Patient Ambulatory and/or Out of Bed Yes REE-([facility]-ambulatory/OOB) [ 2015.975 NUTR.MSJOOB] Calculation Used for Recommendations [facility] Additional Notes Pro needs 1.25-1.5g/k- 102g/day Fluid needs 1ml/kcal Nutrition Intervention Nutrition Support: Pro needs 1.25-1.5g/k- 102g/day Fluid needs 1ml/kcal
[2021-03-29] MEDS: cefTRIAXone/NS 2 GM/100 ML 2 GM/100 ML BAG IV SCH (14:28)
--- NOTE | 2021-03-29 15:12 | Progress Note ---
Assessment and Plan - Patient Problems (1) SBO (small bowel obstruction) Current Visit: Yes Status: Acute Plan to address problem: 1) SBFT 2) Continue NG and TPN Subjective Date of service: 03/29/21 Patient Reports: Positive: no new complaints, feels better, flatus, bowel movement Objective Vital Signs - 12hr 03/29/21 03/29/21 03:42 08:00 Temperature 98.8 F 99 F Pulse Rate 93 H 99 H Respiratory 16 18 Rate Blood Pressure 118/82 Blood Pressure 132/78 [Right] O2 Sat by Pulse 98 98 Oximetry - Abdomen soft, not tender, bowel sounds normal, not distended, not rebound, not guarding - Labs 03/27/21 04:52 03/29/21 09:32 Diabetes panel 03/29/21 Range/Units 09:32 Sodium 135 L (137-145) mmol/L Potassium 4.6 (3.6-5.0) mmol/L Chloride 97.7 L (98-107) mmol/L Carbon Dioxide 26 (22-30) mmol/L BUN 16 (9-20) mg/dL Creatinine 0.8 (0.8-1.3) mg/dL Glucose 116 H (75-100) mg/dL Calcium 9.6 (8.4-10.2) mg/dL Calcium panel 03/29/21 Range/Units 09:32 Calcium 9.6 (8.4-10.2) mg/dL Phosphorus 3.70 (2.5-4.5) mg/dL Pituitary panel 03/29/21 Range/Units 09:32 Sodium 135 L (137-145) mmol/L Potassium 4.6 (3.6-5.0) mmol/L Chloride 97.7 L (98-107) mmol/L Carbon Dioxide 26 (22-30) mmol/L BUN 16 (9-20) mg/dL Creatinine 0.8 (0.8-1.3) mg/dL Glucose 116 H (75-100) mg/dL Calcium 9.6 (8.4-10.2) mg/dL Adrenal panel 03/29/21 Range/Units 09:32 Sodium 135 L (137-145) mmol/L Potassium 4.6 (3.6-5.0) mmol/L Chloride 97.7 L (98-107) mmol/L Carbon Dioxide 26 (22-30) mmol/L BUN 16 (9-20) mg/dL Creatinine 0.8 (0.8-1.3) mg/dL Glucose 116 H (75-100) mg/dL Calcium 9.6 (8.4-10.2) mg/dL
[2021-03-29] MEDS ORDERED: TOTAL PARENTERAL NUTRITION 2,000 ML IV SCH (20:00)
[2021-03-30] MEDS: HYDROmorphone 1 MG/1 ML INJ IV PRN ×7 (00:44→21:57)
[2021-03-30] MEDS: SODIUM HYPOCHLORITE, DAKIN'S FULL STRENGTH (0.5%) 473 ML TOPICAL SOLN TP SCH ×2 (06:21→19:49)
[2021-03-30 09:47] LABS: Blood Urea Nitrogen 18 mg/dL (9-20); Calcium 9.7 mg/dL (8.4-10.2); Hemolysis Index 8
[2021-03-30 09:49] LABS: BUN/Creatinine Ratio 26
--- NOTE | 2021-03-30 10:44 | Progress Note ---
Assessment and Plan Assessment and plan: High-grade severe small bowel obstruction with leukocytosis and low-grade fever at presentation Patient had the first episode about 3 months ago Patient did not seek medical attention, symptoms resolved after 4 days No known past medical or surgical history Hyponatremia likely from vomiting, resolved Laparotomy on 03/18 revealed pelvic abscess possibly from a ruptured appendix, IBD, awaiting histopathology report Surgical cultures growing E. coli sensitive to ceftriaxone, Levaquin and Zosyn Status post right hemicolectomy and ileocolic end-to-end anastomosis Leukocytosis resolving but low grade fever persists. Blood cultures negative, CXR shows atelectasis which could be causing the fever. Left pneumothorax with central line placement, s/p chest tube placement, pneumothorax improved but not resolved yet. Plan: Remains stable postoperatively, general surgery following closely Low-grade fever with pelvic abscess, infected cyst CXR, needs aggressive incentive spirometry No output from left chest tube Continue n.p.o. until bowel function returns Continue Zosyn empirically Continue IV fluids Continue NG suction Monitor WBC, electrolytes and renal function Pain medication and antiemetic as needed. Discussed with the patient, nursing staff 03/23: Continue supportive care. Continue wound management. Chest tube management per surgery. Pain control. Discussed with nursing staff at bedside 03/24: KUB still shows persistent ileus. Dietitian consulted for TPN initiation. Continue supportive care we will downgrade to telemetry 03/25: Patient seen and examined this morning had some increased output from the NG tube that was more dark in concentration hemoglobin remained stable but concerning that there may be some coffee-ground emesis. Will monitor H&H this afternoon to see if there is any further drop. Will await surgical reevaluation. I will hold heparin for now. Chest tube remains in place. Wound care management discussed with nursing staff. Continue pain control 03/26: Patient seen and examined, resting comfortable, Continue supportive care, further management by Surgery. Will restart heparin in am if clinically stable. Replace K 03/27: Patient seen and examined, supportive care, continue current surgical recommendation. Monitor H/H 03/28/21 Patient is seen and examined. Patient is speaking but denies any nausea no vomiting. Patient is on NG suction. Chest x-ray showed left basilar opacity. No discrete pneumothorax. No sizable pleural effusion. X-ray of the abdomen shows mildly dilated loops of small bowel again seen throughout the abdomen unchanged. Continue current management. N.p.o. NG tube to low intermittent suction. Out of bed to chair and ambulate. Surgery follow-up. Recheck CBC BMP in the morning. 03/29: Continue pain control. Out of bed to chair as recommended. Continue NG tube until cleared by surgery for removal based on output. Plan discussed with the patient he verbalized understanding. 03/30: Continue supportive care. Pain control still a 6/10 in intensity patient states worse when he wears out. Counseling provided discussed with nursing staff. Continue TPN and NG tube to low cleared by surgery. History Interval history: Patient seen and examined today no new complaints. NG tube still in place with drainage as noted. Hospitalist Physical - Physical exam Narrative exam: General appearance: Present: no acute distress, other (Alert and oriented, looks comfortable) - EENT Eyes: Present: PERRL, EOM intact ENT: clear oral mucosa, other (NG tube in place) - Neck Neck: Present: supple - Respiratory Respiratory effort: normal Respiratory: bilateral: diminished bilaterally - Cardiovascular Rhythm: regular - Extremities Extremities: No edema - Abdominal General gastrointestinal: soft, non-tender, non-distended, absent bowel sounds, other (Dressings over surgical incision in place) - Integumentary Integumentary: Absent: jaundice, rash - Psychiatric Psychiatric: appropriate mood/affect - Neurologic Neurologic: no focal deficits - Constitutional Vitals: Temp Pulse Resp BP Pulse Ox 98.8 F 98 H 18 121/71 99 03/30/21 07:17 03/30/21 08:00 03/30/21 08:00 03/30/21 07:17 03/30/21 08:00 General appearance: Present: no acute distress, other (Alert and oriented, looks comfortable) Results - Labs CBC & Chem 7: 03/27/21 04:52 03/30/21 09:15 Labs: Laboratory Last Values WBC 7.6 K/mm3 (4.5-11.0) 03/27/21 04:52 RBC 2.99 M/mm3 (3.65-5.03) L 03/27/21 04:52 Hgb 9.9 gm/dl (11.8-15.2) L 03/27/21 04:52 Hct 29.7 % (35.5-45.6) L 03/27/21 04:52 MCV 99 fl (84-94) H 03/27/21 04:52 MCH 33 pg (28-32) H 03/27/21 04:52 MCHC 34 % (32-34) 03/27/21 04:52 RDW 12.6 % (13.2-15.2) L 03/27/21 04:52 Plt Count 470 K/mm3 (140-440) H 03/27/21 04:52 Lymph % (Auto) 12.7 % (13.4-35.0) L 03/25/21 05:27 [place] % (Auto) 10.3 % (0.0-7.3) H 03/25/21 05:27 Eos % (Auto) 1.2 % (0.0-4.3) 03/25/21 05:27 Baso % (Auto) 0.5 % (0.0-1.8) 03/25/21 05:27 Lymph # (Auto) 1.2 K/mm3 (1.2-5.4) 03/25/21 05:27 [place] # (Auto) 1.0 K/mm3 (0.0-0.8) H 03/25/21 05:27 Eos # (Auto) 0.1 K/mm3 (0.0-0.4) 03/25/21 05:27 Baso # (Auto) 0.1 K/mm3 (0.0-0.1) 03/25/21 05:27 Seg Neutrophils % 75.3 % (40.0-70.0) H 03/25/21 05:27 Seg Neutrophils # 7.2 K/mm3 (1.8-7.7) 03/25/21 05:27 Sodium 136 mmol/L (137-145) L 03/30/21 09:15 Potassium 4.9 mmol/L (3.6-5.0) 03/30/21 09:15 Chloride 97.5 mmol/L (98-107) L 03/30/21 09:15 Carbon Dioxide 26 mmol/L (22-30) 03/30/21 09:15 Anion Gap 17 mmol/L 03/30/21 09:15 BUN 18 mg/dL (9-20) 03/30/21 09:15 Creatinine 0.7 mg/dL (0.8-1.3) L 03/30/21 09:15 Estimated GFR > 60 ml/min 03/30/21 09:15 BUN/Creatinine Ratio 26 % 03/30/21 09:15 Glucose 111 mg/dL (75-100) H 03/30/21 09:15 POC Glucose 106 mg/dL (70-105) H 03/30/21 06:40 Calcium 9.7 mg/dL (8.4-10.2) 03/30/21 09:15 Phosphorus 4.10 mg/dL (2.5-4.5) 03/30/21 09:15 Magnesium 2.10 mg/dL (1.7-2.3) 03/30/21 09:15 Total Bilirubin 0.20 mg/dL (0.1-1.2) 03/26/21 04:26 Direct Bilirubin < 0.2 mg/dL (0-0.2) 03/25/21 11:48 Indirect Bilirubin 0.0 mg/dL 03/25/21 11:48 AST 25 units/L (5-40) 03/26/21 04:26 ALT 24 units/L (7-56) 03/26/21 04:26 Alkaline Phosphatase 105 units/L (35-129) 03/26/21 04:26 Total Protein 5.7 g/dL (6.3-8.2) L 03/26/21 04:26 Albumin 2.3 g/dL (3.9-5) L 03/26/21 04:26 Albumin/Globulin Ratio 0.7 % 03/26/21 04:26 Triglycerides 140 mg/dL (2-149) 03/25/21 05:27 Lipase 262 units/L (13-60) H 03/17/21 14:09 Urine Color Yellow (Yellow) 03/18/21 Unknown Urine Turbidity Clear (Clear) 03/18/21 Unknown Urine pH 5.0 (5.0-7.0) 03/18/21 Unknown Ur Specific [place] 1.019 (1.003-1.030) 03/18/21 Unknown Urine Protein 30 mg/dl mg/dL (Negative) 03/18/21 Unknown Urine Glucose (UA) Neg mg/dL (Negative) 03/18/21 Unknown Urine Ketones 20 mg/dL (Negative) 03/18/21 Unknown Urine Blood Neg (Negative) 03/18/21 Unknown Urine Nitrite Neg (Negative) 03/18/21 Unknown Urine Bilirubin Neg (Negative) 03/18/21 Unknown Urine Urobilinogen 2.0 mg/dL (<2.0) 03/18/21 Unknown Ur Leukocyte Esterase Neg (Negative) 03/18/21 Unknown Urine WBC (Auto) 3.0 /HPF (0.0-6.0) 03/18/21 Unknown Urine RBC (Auto) 2.0 /HPF (0.0-6.0) 03/18/21 Unknown Urine Mucus Few /HPF 03/18/21 Unknown Coronavirus (PCR) Negative (Negative) 03/19/21 Unknown [place]/IV: Voiding Method Urinal Active Medications - Current Medications Current Medications: Generic Name Dose Route Start Last Admin Trade Name Freq PRN Reason Stop Dose Admin Acetaminophen 650 mg 03/17/21 22:33 Acetaminophen 325 Mg Tab PO Q4H PRN Pain MILD(1-3)/Fever >100.5/CHRISTIANSEN Acetaminophen 650 mg 03/17/21 22:41 03/22/21 22:20 Acetaminophen 650 Mg Rect Supp [place] 650 mg Q4H PRN Administration Pain MILD(1-3)/Fever >100.5/CHRISTIANSEN Famotidine 20 mg 03/17/21 23:00 03/29/21 21:00 Famotidine 20 Mg/2 Ml Inj IV 20 mg BID PRASHANT Administration Heparin Sodium (Porcine) 5,000 unit 03/18/21 10:00 03/29/21 21:00 Heparin 5,000 Unit/1 Ml Vial SUB-Q 5,000 unit Q12HR PRASHANT Administration Hydromorphone HCl 0.5 mg 03/17/21 22:41 03/30/21 07:37 Hydromorphone 1 Mg/1 Ml Inj IV 0.5 mg Q3H PRN Administration Pain , Severe (7-10) Ceftriaxone Sodium 2 gm in 100 mls @ 200 mls/hr 03/28/21 15:00 03/29/21 14:28 Rocephin/Ns 2 Gm/100 Ml IV 03/31/21 15:29 200 mls/hr Q24H PRASHANT Administration Protocol Amino Acids/Electrolytes/Dextrose 2,000 mls @ 83.33 mls/hr 03/29/21 20:00 03/29/21 20:58 Tpn Adult IV 03/30/21 19:59 83.33 mls/hr DAILY@1999 PRASHANT Administration Protocol Morphine Sulfate 2 mg 03/17/21 22:41 03/24/21 15:42 Morphine 2 Mg/1 Ml Inj IV 2 mg Q4H PRN Administration Pain, Moderate (4-6) Ondansetron HCl 4 mg 03/27/21 14:22 Ondansetron 4 Mg/2 Ml Inj IV Q6H PRN Nausea And Vomiting Phenol 1 spray 03/25/21 11:29 03/26/21 00:41 Phenol 1.4% 177 Ml Bottle MM 1 spray PRN PRN Administration Sore Throat Sodium Chloride 10 ml 03/17/21 22:33 03/28/21 21:39 Sodium Chloride 0.9% 10 Ml Flush Syringe IV 10 ml PRN PRN Administration LINE FLUSH Sodium Chloride 10 ml 03/18/21 10:00 03/29/21 21:06 Sodium Chloride 0.9% 10 Ml Flush Syringe IV 10 ml BID PRASHANT Administration Sodium Hypochlorite 1 applic 03/23/21 17:00 03/30/21 06:21 Sodium Hypochlorite, Dakin's Full Strength (0.5%) 473 Ml Topical Soln TP 1 applicatio Q12H PRASHANT Administration Nutrition/Malnutrition Assess - Dietary Evaluation Nutrition/Malnutrition Findings: Nutrition Notes Start: 03/19/21 11:28 Freq: Status: Active Protocol: Document 03/29/21 09:45 CHANCE (Rec: 03/29/21 10:02 CHANCE [id number]) Nutrition Notes Initial or Follow up Reassessment Current Diagnosis Small Bowel Obstruction Other Pertinent Diagnosis Pelvic abscess, (R) hemicolectomy, (L) pneumothorax Current Diet TPN at 83.33ml/hr Labs/Tests 03/29: Na 135, Cl 97.7, Glu 116. Pertinent Medications Reviewed. Height 5 ft 6 in Weight 67.8 kg [place] Body Weight (kg) 64.54 BMI 24.1 Weight Status Appropriate Subjective/Other Information Day 4 TPN Burn Absent Trauma Absent GI Symptoms Other Food Allergy No Current % PO Other Minimum of two criteria No #1 Nutrition Diagnosis Altered GI function Diagnosis Progress(for reassessment Continues documentation) Is patient on ventilator? No Is Patient Ambulatory and/or Out of Bed Yes REE-([facility]-ambulatory/OOB) [ 2015.975 NUTR.MSJOOB] Calculation Used for Recommendations [facility] Additional Notes Pro needs 1.25-1.5g/k- 102g/day Fluid needs 1ml/kcal Nutrition Intervention Nutrition Support: PContinue TPN at 83.33ml/hr: MVI, 17.5% dextrose, 100%/0% chloride/acetate, 135mEq Na, 3mmol Phos. Osmolality: 1480. Kcal 1,590 Protein (gm) 100 Carbohydrates (gm) 350 Fat (gm) 0 Fluid (mL) 2,000 % RDI: 70.4% Kcal; 100% AA. Goal #1 TPN to meet at least 75% energy and pro needs Follow-Up By: 03/30/21 Additional Comments Labs in am: BMP, Mg, Phos
--- NOTE | 2021-03-30 14:07 | Progress Note ---
Assessment and Plan - Patient Problems (1) SBO (small bowel obstruction) Current Visit: Yes Status: Acute Plan to address problem: 1) Check SBFT 2) Continue TPN 3) Continue NG Subjective Date of service: 03/30/21 Narrative: In radiology getting SBFT. Objective Vital Signs - 12hr 03/30/21 03/30/21 03/30/21 05:23 07:17 08:00 Temperature 98.8 F Pulse Rate 110 H 98 H Pulse Rate [ 98 H From Monitor] Pulse Rate [ 98 H Left Radial] Pulse Rate [ 98 H Right Radial] Respiratory 20 18 Rate Blood Pressure 110/72 121/71 O2 Sat by Pulse 95 96 99 Oximetry - Labs 03/27/21 04:52 03/30/21 09:15 Diabetes panel 03/30/21 Range/Units 09:15 Sodium 136 L (137-145) mmol/L Potassium 4.9 (3.6-5.0) mmol/L Chloride 97.5 L (98-107) mmol/L Carbon Dioxide 26 (22-30) mmol/L BUN 18 (9-20) mg/dL Creatinine 0.7 L (0.8-1.3) mg/dL Glucose 111 H (75-100) mg/dL Calcium 9.7 (8.4-10.2) mg/dL Calcium panel 03/30/21 Range/Units 09:15 Calcium 9.7 (8.4-10.2) mg/dL Phosphorus 4.10 (2.5-4.5) mg/dL Pituitary panel 03/30/21 Range/Units 09:15 Sodium 136 L (137-145) mmol/L Potassium 4.9 (3.6-5.0) mmol/L Chloride 97.5 L (98-107) mmol/L Carbon Dioxide 26 (22-30) mmol/L BUN 18 (9-20) mg/dL Creatinine 0.7 L (0.8-1.3) mg/dL Glucose 111 H (75-100) mg/dL Calcium 9.7 (8.4-10.2) mg/dL Adrenal panel 03/30/21 Range/Units 09:15 Sodium 136 L (137-145) mmol/L Potassium 4.9 (3.6-5.0) mmol/L Chloride 97.5 L (98-107) mmol/L Carbon Dioxide 26 (22-30) mmol/L BUN 18 (9-20) mg/dL Creatinine 0.7 L (0.8-1.3) mg/dL Glucose 111 H (75-100) mg/dL Calcium 9.7 (8.4-10.2) mg/dL
[2021-03-30] MEDS: FAMOTIDINE 20 MG/2 ML INJ IV SCH ×2 (15:00→21:57)
[2021-03-30] MEDS: HEPARIN 5,000 UNIT/1 ML VIAL SUB-Q SCH ×2 (15:00→21:57)
[2021-03-30] MEDS: cefTRIAXone/NS 2 GM/100 ML 2 GM/100 ML BAG IV SCH (15:21)
--- NOTE | 2021-03-30 15:22 | Fluoroscopy Report ---
SMALL BOWEL FOLLOW-THROUGH HISTORY: Small bowel obstruction. TECHNIQUE: Single contrast Gastrografin technique utilized to evaluate the small bowel. COMPARISON: Multiple previous abdominal exams with the most recent being 03/28/2021 FINDINGS: Mercerizer film of the abdomen demonstrates mildly prominent loops of gas-filled small bowel thr oughout the central abdomen which appear grossly unchanged over multiple previous exams. A surgical d rain is present in the pelvis. Small bowel transit time was approximately 2 hours which is borderline delayed. Transit time through the colon was approximately 3 hours. There is mild diffuse prominence of the small bowel loops but no discrete transition point is appreciated. No extravasation of contra st into the pelvic drain. . IMPRESSION: Findings appear most compatible with a moderate ileus. FLUOROSCOPIC TIME: 0 minutes NUMBER OF FLUOROSCOPIC IMAGES: 0 Signer Name: Wale Cardenas Jr, MD Signed: 03/30/2021 3:17 PM Workstation Name: [id number]
[2021-03-30] MEDS ORDERED: TOTAL PARENTERAL NUTRITION 2,000 ML IV SCH (20:00)
[2021-03-31] MEDS: HYDROmorphone 1 MG/1 ML INJ IV PRN ×7 (01:30→21:37)
[2021-03-31] MEDS: SODIUM HYPOCHLORITE, DAKIN'S FULL STRENGTH (0.5%) 473 ML TOPICAL SOLN TP SCH ×2 (04:44→18:06)
[2021-03-31 06:03] LABS: BUN/Creatinine Ratio 29; Blood Urea Nitrogen 23 mg/dL (9-20); Calcium 9.8 mg/dL (8.4-10.2); Hemolysis Index 3
[2021-03-31] MEDS: HEPARIN 5,000 UNIT/1 ML VIAL SUB-Q SCH ×2 (11:07→21:38)
[2021-03-31] MEDS: FAMOTIDINE 20 MG/2 ML INJ IV SCH ×2 (11:07→21:38)
--- NOTE | 2021-03-31 11:51 | Progress Note ---
Assessment and Plan - Patient Problems (1) SBO (small bowel obstruction) Current Visit: Yes Status: Acute Plan to address problem: 1) DC NG 2) Sips of clears 3) CBC in the am Subjective Date of service: 03/31/21 Patient Reports: Positive: no new complaints, feels better, pain is less, flatus, bowel movement Objective Vital Signs - 12hr 03/31/21 03/31/21 03/31/21 04:41 07:23 07:47 Temperature 98.3 F 98.5 F Pulse Rate 103 H 92 H Pulse Rate [ 90 From Monitor] Pulse Rate [ 90 Left Radial] Pulse Rate [ 90 Right Radial] Respiratory 16 18 Rate Blood Pressure 116/76 118/77 O2 Sat by Pulse 97 99 99 Oximetry - Abdomen PM_46_EXABD1 4, PM_46_EXABD1 6, PM_46_EXABD1 8 Hernia: none - Labs 03/27/21 04:52 03/31/21 05:15 Diabetes panel 03/31/21 Range/Units 05:15 Sodium 137 (137-145) mmol/L Potassium 4.6 (3.6-5.0) mmol/L Chloride 97.1 L (98-107) mmol/L Carbon Dioxide 26 (22-30) mmol/L BUN 23 H (9-20) mg/dL Creatinine 0.8 (0.8-1.3) mg/dL Glucose 117 H (75-100) mg/dL Calcium 9.8 (8.4-10.2) mg/dL Calcium panel 03/31/21 Range/Units 05:15 Calcium 9.8 (8.4-10.2) mg/dL Phosphorus 4.50 (2.5-4.5) mg/dL Pituitary panel 03/31/21 Range/Units 05:15 Sodium 137 (137-145) mmol/L Potassium 4.6 (3.6-5.0) mmol/L Chloride 97.1 L (98-107) mmol/L Carbon Dioxide 26 (22-30) mmol/L BUN 23 H (9-20) mg/dL Creatinine 0.8 (0.8-1.3) mg/dL Glucose 117 H (75-100) mg/dL Calcium 9.8 (8.4-10.2) mg/dL Adrenal panel 03/31/21 Range/Units 05:15 Sodium 137 (137-145) mmol/L Potassium 4.6 (3.6-5.0) mmol/L Chloride 97.1 L (98-107) mmol/L Carbon Dioxide 26 (22-30) mmol/L BUN 23 H (9-20) mg/dL Creatinine 0.8 (0.8-1.3) mg/dL Glucose 117 H (75-100) mg/dL Calcium 9.8 (8.4-10.2) mg/dL - Imaging Additional Studies: SBFT noted.
[2021-03-31] MEDS ORDERED: LIDOCAINE 1%/EPINEPHRINE 1:100,000 VIAL (20 ML) INFILTRATI ONE (11:52)
[2021-03-31] MEDS: cefTRIAXone/NS 2 GM/100 ML 2 GM/100 ML BAG IV SCH (14:36)
--- NOTE | 2021-03-31 17:03 | Progress Note ---
Assessment and Plan Assessment and plan: High-grade severe small bowel obstruction with leukocytosis and low-grade fever at presentation Patient had the first episode about 3 months ago Patient did not seek medical attention, symptoms resolved after 4 days No known past medical or surgical history Hyponatremia likely from vomiting, resolved Laparotomy on 03/18 revealed pelvic abscess possibly from a ruptured appendix, IBD, awaiting histopathology report Surgical cultures growing E. coli sensitive to ceftriaxone, Levaquin and Zosyn Status post right hemicolectomy and ileocolic end-to-end anastomosis Leukocytosis resolving but low grade fever persists. Blood cultures negative, CXR shows atelectasis which could be causing the fever. Left pneumothorax with central line placement, s/p chest tube placement, pneumothorax improved but not resolved yet. Plan: Remains stable postoperatively, general surgery following closely Low-grade fever with pelvic abscess, infected cyst CXR, needs aggressive incentive spirometry No output from left chest tube Continue n.p.o. until bowel function returns Continue Zosyn empirically Continue IV fluids Continue NG suction Monitor WBC, electrolytes and renal function Pain medication and antiemetic as needed. Discussed with the patient, nursing staff 03/23: Continue supportive care. Continue wound management. Chest tube management per surgery. Pain control. Discussed with nursing staff at bedside 03/24: KUB still shows persistent ileus. Dietitian consulted for TPN initiation. Continue supportive care we will downgrade to telemetry 03/25: Patient seen and examined this morning had some increased output from the NG tube that was more dark in concentration hemoglobin remained stable but concerning that there may be some coffee-ground emesis. Will monitor H&H this afternoon to see if there is any further drop. Will await surgical reevaluation. I will hold heparin for now. Chest tube remains in place. Wound care management discussed with nursing staff. Continue pain control 03/26: Patient seen and examined, resting comfortable, Continue supportive care, further management by Surgery. Will restart heparin in am if clinically stable. Replace K 03/27: Patient seen and examined, supportive care, continue current surgical recommendation. Monitor H/H 03/28/21 Patient is seen and examined. Patient is speaking but denies any nausea no vomiting. Patient is on NG suction. Chest x-ray showed left basilar opacity. No discrete pneumothorax. No sizable pleural effusion. X-ray of the abdomen shows mildly dilated loops of small bowel again seen throughout the abdomen unchanged. Continue current management. N.p.o. NG tube to low intermittent suction. Out of bed to chair and ambulate. Surgery follow-up. Recheck CBC BMP in the morning. 03/29: Continue pain control. Out of bed to chair as recommended. Continue NG tube until cleared by surgery for removal based on output. Plan discussed with the patient he verbalized understanding. 03/30: Continue supportive care. Pain control still a 6/10 in intensity patient states worse when he wears out. Counseling provided discussed with nursing staff. Continue TPN and NG tube to low cleared by surgery. 03/31: Patient seen and examined, NGT to be removed today, sips of water per ludivina joe, repeat labs in am. History Interval history: Patient seen and examined today no new complaints. Hospitalist Physical - Physical exam Narrative exam: General appearance: Present: no acute distress, other (Alert and oriented, looks comfortable) - EENT Eyes: Present: PERRL, EOM intact ENT: clear oral mucosa, other (NG tube in place) - Neck Neck: Present: supple - Respiratory Respiratory effort: normal Respiratory: bilateral: diminished bilaterally - Cardiovascular Rhythm: regular - Extremities Extremities: No edema - Abdominal General gastrointestinal: soft, non-tender, non-distended, absent bowel sounds, other (Dressings over surgical incision in place) - Integumentary Integumentary: Absent: jaundice, rash - Psychiatric Psychiatric: appropriate mood/affect - Neurologic Neurologic: no focal deficits - Constitutional Vitals: Temp Pulse Resp BP Pulse Ox 98.4 F 92 H 18 111/74 98 03/31/21 11:40 03/31/21 11:40 03/31/21 11:40 03/31/21 11:40 03/31/21 11:40 General appearance: Present: no acute distress, other (Alert and oriented, looks comfortable) Results - Labs CBC & Chem 7: 03/27/21 04:52 03/31/21 05:15 Labs: Laboratory Last Values WBC 7.6 K/mm3 (4.5-11.0) 03/27/21 04:52 RBC 2.99 M/mm3 (3.65-5.03) L 03/27/21 04:52 Hgb 9.9 gm/dl (11.8-15.2) L 03/27/21 04:52 Hct 29.7 % (35.5-45.6) L 03/27/21 04:52 MCV 99 fl (84-94) H 03/27/21 04:52 MCH 33 pg (28-32) H 03/27/21 04:52 MCHC 34 % (32-34) 03/27/21 04:52 RDW 12.6 % (13.2-15.2) L 03/27/21 04:52 Plt Count 470 K/mm3 (140-440) H 03/27/21 04:52 Lymph % (Auto) 12.7 % (13.4-35.0) L 03/25/21 05:27 [place] % (Auto) 10.3 % (0.0-7.3) H 03/25/21 05:27 Eos % (Auto) 1.2 % (0.0-4.3) 03/25/21 05:27 Baso % (Auto) 0.5 % (0.0-1.8) 03/25/21 05:27 Lymph # (Auto) 1.2 K/mm3 (1.2-5.4) 03/25/21 05:27 [place] # (Auto) 1.0 K/mm3 (0.0-0.8) H 03/25/21 05:27 Eos # (Auto) 0.1 K/mm3 (0.0-0.4) 03/25/21 05:27 Baso # (Auto) 0.1 K/mm3 (0.0-0.1) 03/25/21 05:27 Seg Neutrophils % 75.3 % (40.0-70.0) H 03/25/21 05:27 Seg Neutrophils # 7.2 K/mm3 (1.8-7.7) 03/25/21 05:27 Sodium 137 mmol/L (137-145) 03/31/21 05:15 Potassium 4.6 mmol/L (3.6-5.0) 03/31/21 05:15 Chloride 97.1 mmol/L (98-107) L 03/31/21 05:15 Carbon Dioxide 26 mmol/L (22-30) 03/31/21 05:15 Anion Gap 19 mmol/L 03/31/21 05:15 BUN 23 mg/dL (9-20) H 03/31/21 05:15 Creatinine 0.8 mg/dL (0.8-1.3) 03/31/21 05:15 Estimated GFR > 60 ml/min 03/31/21 05:15 BUN/Creatinine Ratio 29 % 03/31/21 05:15 Glucose 117 mg/dL (75-100) H 03/31/21 05:15 POC Glucose 106 mg/dL (70-105) H 03/31/21 12:08 Calcium 9.8 mg/dL (8.4-10.2) 03/31/21 05:15 Phosphorus 4.50 mg/dL (2.5-4.5) 03/31/21 05:15 Magnesium 2.10 mg/dL (1.7-2.3) 03/31/21 05:15 Total Bilirubin 0.20 mg/dL (0.1-1.2) 03/26/21 04:26 Direct Bilirubin < 0.2 mg/dL (0-0.2) 03/25/21 11:48 Indirect Bilirubin 0.0 mg/dL 03/25/21 11:48 AST 25 units/L (5-40) 03/26/21 04:26 ALT 24 units/L (7-56) 03/26/21 04:26 Alkaline Phosphatase 105 units/L (35-129) 03/26/21 04:26 Total Protein 5.7 g/dL (6.3-8.2) L 03/26/21 04:26 Albumin 2.3 g/dL (3.9-5) L 03/26/21 04:26 Albumin/Globulin Ratio 0.7 % 03/26/21 04:26 Triglycerides 140 mg/dL (2-149) 03/25/21 05:27 Lipase 262 units/L (13-60) H 03/17/21 14:09 Urine Color Yellow (Yellow) 03/18/21 Unknown Urine Turbidity Clear (Clear) 03/18/21 Unknown Urine pH 5.0 (5.0-7.0) 03/18/21 Unknown Ur Specific [place] 1.019 (1.003-1.030) 03/18/21 Unknown Urine Protein 30 mg/dl mg/dL (Negative) 03/18/21 Unknown Urine Glucose (UA) Neg mg/dL (Negative) 03/18/21 Unknown Urine Ketones 20 mg/dL (Negative) 03/18/21 Unknown Urine Blood Neg (Negative) 03/18/21 Unknown Urine Nitrite Neg (Negative) 03/18/21 Unknown Urine Bilirubin Neg (Negative) 03/18/21 Unknown Urine Urobilinogen 2.0 mg/dL (<2.0) 03/18/21 Unknown Ur Leukocyte Esterase Neg (Negative) 03/18/21 Unknown Urine WBC (Auto) 3.0 /HPF (0.0-6.0) 03/18/21 Unknown Urine RBC (Auto) 2.0 /HPF (0.0-6.0) 03/18/21 Unknown Urine Mucus Few /HPF 03/18/21 Unknown Coronavirus (PCR) Negative (Negative) 03/19/21 Unknown [place]/IV: Voiding Method Urinal Active Medications - Current Medications Current Medications: Generic Name Dose Route Start Last Admin Trade Name Freq PRN Reason Stop Dose Admin Acetaminophen 650 mg 03/17/21 22:33 Acetaminophen 325 Mg Tab PO Q4H PRN Pain MILD(1-3)/Fever >100.5/CHRISTIANSEN Acetaminophen 650 mg 03/17/21 22:41 03/22/21 22:20 Acetaminophen 650 Mg Rect Supp IA 650 mg Q4H PRN Administration Pain MILD(1-3)/Fever >100.5/CHRISTIANSEN Famotidine 20 mg 03/17/21 23:00 03/31/21 11:07 Famotidine 20 Mg/2 Ml Inj IV 20 mg BID PRASHANT Administration Heparin Sodium (Porcine) 5,000 unit 03/18/21 10:00 03/31/21 11:07 Heparin 5,000 Unit/1 Ml Vial SUB-Q 5,000 unit Q12HR PRASHANT Administration Hydromorphone HCl 0.5 mg 03/17/21 22:41 03/31/21 11:07 Hydromorphone 1 Mg/1 Ml Inj IV 0.5 mg Q3H PRN Administration Pain , Severe (7-10) Amino Acids/Electrolytes/Dextrose 2,000 mls @ 83.33 mls/hr 03/30/21 20:00 20:45 Tpn Adult IV 03/31/21 19:59 83.33 mls/hr DAILY@2000 PRASHANT Administration Protocol Amino Acids/Electrolytes/Dextrose 2,000 mls @ 83.33 mls/hr 03/31/21 20:00 Tpn Adult IV 04/01/21 19:59 DAILY@1999 [facility] Protocol Morphine Sulfate 2 mg 03/17/21 22:41 03/24/21 15:42 Morphine 2 Mg/1 Ml Inj IV 2 mg Q4H PRN Administration Pain, Moderate (4-6) Ondansetron HCl 4 mg 03/27/21 14:22 Ondansetron 4 Mg/2 Ml Inj IV Q6H PRN Nausea And Vomiting Phenol 1 spray 03/25/21 11:29 03/26/21 00:41 Phenol 1.4% 177 Ml Bottle MM 1 spray PRN PRN Administration Sore Throat Sodium Chloride 10 ml 03/17/21 22:33 03/28/21 21:39 Sodium Chloride 0.9% 10 Ml Flush Syringe IV 10 ml PRN PRN Administration LINE FLUSH Sodium Chloride 10 ml 03/18/21 10:00 03/31/21 11:07 Sodium Chloride 0.9% 10 Ml Flush Syringe IV 10 ml BID PRASHANT Administration Sodium Hypochlorite 1 applic 03/23/21 17:00 03/31/21 04:44 Sodium Hypochlorite, [place] Full Strength (0.5%) 473 Ml Topical Soln TP 1 applicatio Q12H PRASHANT Administration Nutrition/Malnutrition Assess - Dietary Evaluation Nutrition/Malnutrition Findings: Nutrition Notes Start: 03/19/21 11:28 Freq: Status: Active Protocol: Document 03/31/21 12:23 CHANCE (Rec: 03/31/21 12:35 CHANCE [email or web address]) Nutrition Notes Initial or Follow up Reassessment Current Diagnosis Small Bowel Obstruction Other Pertinent Diagnosis Pelvic abscess, (R) hemicolectomy, (L) pneumothorax Current Diet TPN at 83.33ml/hr Labs/Tests 03/31: Cl 97.1, BUN 23, Glu 117. Pertinent Medications Reviewed Height 5 ft 6 in Weight 62.8 kg [place] Body Weight (kg) 64.54 BMI 22.3 Weight change and time frame Body weight to be verified tomorrow. Weight Status Appropriate Subjective/Other Information Day 6 TPN. Percent of energy/protein needs met: 81.5% Kcal; 100% AA. Burn Absent Trauma Absent GI Symptoms Other Food Allergy No Current % PO Other Minimum of two criteria No #1 Nutrition Diagnosis Altered GI function Diagnosis Progress(for reassessment Continues documentation) Is patient on ventilator? No Is Patient Ambulatory and/or Out of Bed Yes REE-([facility]-ambulatory/OOB) [ 1950.975 [id number]] Calculation Used for Recommendations [facility] Additional Notes Pro needs 1.25-1.5g/k- 101g/day Fluid needs 1ml/kcal, or as per MD. Nutrition Intervention Nutrition Support: Continue TPN at 83.33ml/hr: MVI, 50mEq K. Osmolality: 1575. Kcal 1,590 Protein (gm) 100 Carbohydrates (gm) 350 Fat (gm) 0 Fluid (mL) 2,000 % RDI: 81.5% Kcal; 100% AA. Goal #1 TPN to meet at least 75% energy and pro needs Follow-Up By: 04/01/21 Additional Comments Labs in am: BMP, Mg, Phos.
[2021-03-31] MEDS ORDERED: TOTAL PARENTERAL NUTRITION 2,000 ML IV SCH (20:00)
[2021-04-01] MEDS: HYDROmorphone 1 MG/1 ML INJ IV PRN ×6 (01:24→17:06)
[2021-04-01] MEDS: SODIUM HYPOCHLORITE, DAKIN'S FULL STRENGTH (0.5%) 473 ML TOPICAL SOLN TP SCH ×2 (05:04→17:05)
[2021-04-01 06:10] LABS: Basophils # (Auto) 0.1 K/mm3 (0.0-0.1); Basophils % (Auto) 0.8 % (0.0-1.8); Eosinophils # (Auto) 0.2 K/mm3 (0.0-0.4); Eosinophils % (Auto) 3.1 % (0.0-4.3); Hematocrit 31.4 % (35.5-45.6); Hemoglobin 10.4 gm/dl (11.8-15.2); Lymphocytes # (Auto) 1.7 K/mm3 (1.2-5.4); Lymphocytes % (Auto) 25.9 % (13.4-35.0); Mean Corpuscular HGB Conc 33 % (32-34); Mean Corpuscular Volume 100 fl (84-94); Monocytes # (Auto) 0.7 K/mm3 (0.0-0.8); Monocytes % (Auto) 10.7 % (0.0-7.3); Platelet Count 534 K/mm3 (140-440); Red Blood Count 3.14 M/mm3 (3.65-5.03); Red Cell Distribution Width 13.3 % (13.2-15.2)
[2021-04-01 10:18] LABS: Blood Urea Nitrogen 19 mg/dL (9-20); Calcium 9.6 mg/dL (8.4-10.2); Hemolysis Index 6
[2021-04-01 10:21] LABS: BUN/Creatinine Ratio 27
[2021-04-01] MEDS: HEPARIN 5,000 UNIT/1 ML VIAL SUB-Q SCH ×2 (10:41→21:39)
[2021-04-01] MEDS: FAMOTIDINE 20 MG/2 ML INJ IV SCH ×2 (10:42→21:39)
--- NOTE | 2021-04-01 12:16 | Progress Note ---
Assessment and Plan Assessment and plan: High-grade severe small bowel obstruction with leukocytosis and low-grade fever at presentation Patient had the first episode about 3 months ago Patient did not seek medical attention, symptoms resolved after 4 days No known past medical or surgical history Hyponatremia likely from vomiting, resolved Laparotomy on 03/18 revealed pelvic abscess possibly from a ruptured appendix, IBD, awaiting histopathology report Surgical cultures growing E. coli sensitive to ceftriaxone, Levaquin and Zosyn Status post right hemicolectomy and ileocolic end-to-end anastomosis Leukocytosis resolving but low grade fever persists. Blood cultures negative, CXR shows atelectasis which could be causing the fever. Left pneumothorax with central line placement, s/p chest tube placement, pneumothorax improved but not resolved yet. Plan: Remains stable postoperatively, general surgery following closely Low-grade fever with pelvic abscess, infected cyst CXR, needs aggressive incentive spirometry No output from left chest tube Continue n.p.o. until bowel function returns Continue Zosyn empirically Continue IV fluids Continue NG suction Monitor WBC, electrolytes and renal function Pain medication and antiemetic as needed. Discussed with the patient, nursing staff 03/23: Continue supportive care. Continue wound management. Chest tube management per surgery. Pain control. Discussed with nursing staff at bedside 03/24: KUB still shows persistent ileus. Dietitian consulted for TPN initiation. Continue supportive care we will downgrade to telemetry 03/25: Patient seen and examined this morning had some increased output from the NG tube that was more dark in concentration hemoglobin remained stable but concerning that there may be some coffee-ground emesis. Will monitor H&H this afternoon to see if there is any further drop. Will await surgical reevaluation. I will hold heparin for now. Chest tube remains in place. Wound care management discussed with nursing staff. Continue pain control 03/26: Patient seen and examined, resting comfortable, Continue supportive care, further management by Surgery. Will restart heparin in am if clinically stable. Replace K 03/27: Patient seen and examined, supportive care, continue current surgical recommendation. Monitor H/H 03/28/21 Patient is seen and examined. Patient is speaking but denies any nausea no vomiting. Patient is on NG suction. Chest x-ray showed left basilar opacity. No discrete pneumothorax. No sizable pleural effusion. X-ray of the abdomen shows mildly dilated loops of small bowel again seen throughout the abdomen unchanged. Continue current management. N.p.o. NG tube to low intermittent suction. Out of bed to chair and ambulate. Surgery follow-up. Recheck CBC BMP in the morning. 03/29: Continue pain control. Out of bed to chair as recommended. Continue NG tube until cleared by surgery for removal based on output. Plan discussed with the patient he verbalized understanding. 03/30: Continue supportive care. Pain control still a 6/10 in intensity patient states worse when he wears out. Counseling provided discussed with nursing staff. Continue TPN and NG tube to low cleared by surgery. 03/31: Patient seen and examined, NGT to be removed today, sips of water per ludivina diaz, repeat labs in am. 04/01: Patient seen and examined NG tube has been discontinued. He is to lerating sips of water. He says that he did have a bowel movement yesterday. Will await further recommendations by surgical team. History Interval history: Patient seen and examined today no new complaints. Doing well tolerating sips of water Hospitalist Physical - Physical exam Narrative exam: General appearance: Present: no acute distress, other (Alert and oriented, looks comfortable) - EENT Eyes: Present: PERRL, EOM intact ENT: clear oral mucosa, other (NG tube in place) - Neck Neck: Present: supple - Respiratory Respiratory effort: normal Respiratory: bilateral: diminished bilaterally - Cardiovascular Rhythm: regular - Extremities Extremities: No edema - Abdominal General gastrointestinal: soft, non-tender, non-distended, absent bowel sounds, other (Dressings over surgical incision in place) - Integumentary Integumentary: Absent: jaundice, rash - Psychiatric Psychiatric: appropriate mood/affect - Neurologic Neurologic: no focal deficits - Constitutional Vitals: Temp Pulse Resp BP Pulse Ox 97.8 F 88 20 128/79 100 04/01/21 08:26 04/01/21 08:26 04/01/21 08:26 04/01/21 08:26 04/01/21 08:26 General appearance: Present: no acute distress, other (Alert and oriented, looks comfortable) Results - Labs CBC & Chem 7: 04/01/21 05:16 04/01/21 09:42 Labs: Laboratory Last Values WBC 6.6 K/mm3 (4.5-11.0) 04/01/21 05:16 RBC 3.14 M/mm3 (3.65-5.03) L 04/01/21 05:16 Hgb 10.4 gm/dl (11.8-15.2) L 04/01/21 05:16 Hct 31.4 % (35.5-45.6) L 04/01/21 05:16 MCV 100 fl (84-94) H 04/01/21 05:16 MCH 33 pg (28-32) H 04/01/21 05:16 MCHC 33 % (32-34) 04/01/21 05:16 RDW 13.3 % (13.2-15.2) 04/01/21 05:16 Plt Count 534 K/mm3 (140-440) H 04/01/21 05:16 Lymph % (Auto) 25.9 % (13.4-35.0) 04/01/21 05:16 [place] % (Auto) 10.7 % (0.0-7.3) H 04/01/21 05:16 Eos % (Auto) 3.1 % (0.0-4.3) 04/01/21 05:16 Baso % (Auto) 0.8 % (0.0-1.8) 04/01/21 05:16 Lymph # (Auto) 1.7 K/mm3 (1.2-5.4) 04/01/21 05:16 [place] # (Auto) 0.7 K/mm3 (0.0-0.8) 04/01/21 05:16 Eos # (Auto) 0.2 K/mm3 (0.0-0.4) 04/01/21 05:16 Baso # (Auto) 0.1 K/mm3 (0.0-0.1) 04/01/21 05:16 Seg Neutrophils % 59.5 % (40.0-70.0) 04/01/21 05:16 Seg Neutrophils # 3.9 K/mm3 (1.8-7.7) 04/01/21 05:16 Sodium 132 mmol/L (137-145) L 04/01/21 09:42 Potassium 4.3 mmol/L (3.6-5.0) 04/01/21 09:42 Chloride 93.7 mmol/L (98-107) L 04/01/21 09:42 Carbon Dioxide 27 mmol/L (22-30) 04/01/21 09:42 Anion Gap 16 mmol/L 04/01/21 09:42 BUN 19 mg/dL (9-20) 04/01/21 09:42 Creatinine 0.7 mg/dL (0.8-1.3) L 04/01/21 09:42 Estimated GFR > 60 ml/min 04/01/21 09:42 BUN/Creatinine Ratio 27 % 04/01/21 09:42 Glucose 100 mg/dL (75-100) 04/01/21 09:42 POC Glucose 103 mg/dL (70-105) 04/01/21 05:10 Calcium 9.6 mg/dL (8.4-10.2) 04/01/21 09:42 Phosphorus 3.40 mg/dL (2.5-4.5) D 04/01/21 09:42 Magnesium 1.80 mg/dL (1.7-2.3) 04/01/21 09:42 Total Bilirubin 0.20 mg/dL (0.1-1.2) 03/26/21 04:26 Direct Bilirubin < 0.2 mg/dL (0-0.2) 03/25/21 11:48 Indirect Bilirubin 0.0 mg/dL 03/25/21 11:48 AST 25 units/L (5-40) 03/26/21 04:26 ALT 24 units/L (7-56) 03/26/21 04:26 Alkaline Phosphatase 105 units/L (35-129) 03/26/21 04:26 Total Protein 5.7 g/dL (6.3-8.2) L 03/26/21 04:26 Albumin 2.3 g/dL (3.9-5) L 03/26/21 04:26 Albumin/Globulin Ratio 0.7 % 03/26/21 04:26 Triglycerides 140 mg/dL (2-149) 03/25/21 05:27 Lipase 262 units/L (13-60) H 03/17/21 14:09 Urine Color Yellow (Yellow) 03/18/21 Unknown Urine Turbidity Clear (Clear) 03/18/21 Unknown Urine pH 5.0 (5.0-7.0) 03/18/21 Unknown Ur Specific [place] 1.019 (1.003-1.030) 03/18/21 Unknown Urine Protein 30 mg/dl mg/dL (Negative) 03/18/21 Unknown Urine Glucose (UA) Neg mg/dL (Negative) 03/18/21 Unknown Urine Ketones 20 mg/dL (Negative) 03/18/21 Unknown Urine Blood Neg (Negative) 03/18/21 Unknown Urine Nitrite Neg (Negative) 03/18/21 Unknown Urine Bilirubin Neg (Negative) 03/18/21 Unknown Urine Urobilinogen 2.0 mg/dL (<2.0) 03/18/21 Unknown Ur Leukocyte Esterase Neg (Negative) 03/18/21 Unknown Urine WBC (Auto) 3.0 /HPF (0.0-6.0) 03/18/21 Unknown Urine RBC (Auto) 2.0 /HPF (0.0-6.0) 03/18/21 Unknown Urine Mucus Few /HPF 03/18/21 Unknown Coronavirus (PCR) Negative (Negative) 03/19/21 Unknown [place]/IV: Voiding Method Urinal Active Medications - Current Medications Current Medications: Generic Name Dose Route Start Last Admin Trade Name Freq PRN Reason Stop Dose Admin Acetaminophen 650 mg 03/17/21 22:33 Acetaminophen 325 Mg Tab PO Q4H PRN Pain MILD(1-3)/Fever >100.5/CHRISTIANSEN Acetaminophen 650 mg 03/17/21 22:41 03/22/21 22:20 Acetaminophen 650 Mg Rect Supp [place] 650 mg Q4H PRN Administration Pain MILD(1-3)/Fever >100.5/CHRISTIANSEN Famotidine 20 mg 03/17/21 23:00 04/01/21 10:42 Famotidine 20 Mg/2 Ml Inj IV 20 mg BID PRASHANT Administration Heparin Sodium (Porcine) 5,000 unit 03/18/21 10:00 04/01/21 10:41 Heparin 5,000 Unit/1 Ml Vial SUB-Q 5,000 unit Q12HR PRASHANT Administration Hydromorphone HCl 0.5 mg 03/17/21 22:41 04/01/21 11:20 Hydromorphone 1 Mg/1 Ml Inj IV 0.5 mg Q3H PRN Administration Pain , Severe (7-10) Amino Acids/Electrolytes/Dextrose 2,000 mls @ 83.33 mls/hr 03/31/21 20:00 03/31/21 21:38 Tpn Adult IV 04/01/21 19:59 83.33 mls/hr DAILY@2000 PRASHANT Administration Protocol Morphine Sulfate 2 mg 03/17/21 22:41 03/24/21 15:42 Morphine 2 Mg/1 Ml Inj IV 2 mg Q4H PRN Administration Pain, Moderate (4-6) Ondansetron HCl 4 mg 03/27/21 14:22 Ondansetron 4 Mg/2 Ml Inj IV Q6H PRN Nausea And Vomiting Phenol 1 spray 03/25/21 11:29 03/26/21 00:41 Phenol 1.4% 177 Ml Bottle MM 1 spray PRN PRN Administration Sore Throat Sodium Chloride 10 ml 03/17/21 22:33 03/28/21 21:39 Sodium Chloride 0.9% 10 Ml Flush Syringe IV 10 ml PRN PRN Administration LINE FLUSH Sodium Chloride 10 ml 03/18/21 10:00 04/01/21 10:42 Sodium Chloride 0.9% 10 Ml Flush Syringe IV 10 ml BID PRASHANT Administration Sodium Hypochlorite 1 applic 03/23/21 17:00 04/01/21 05:04 Sodium Hypochlorite, Dakin's Full Strength (0.5%) 473 Ml Topical Soln TP 1 applicatio Q12H PRASHANT Administration Nutrition/Malnutrition Assess - Dietary Evaluation Nutrition/Malnutrition Findings: Nutrition Notes Start: 03/19/21 11:28 Freq: Status: Active Protocol: Document 03/31/21 12:23 CHANCE (Rec: 03/31/21 12:35 CHANCE [id number]) Nutrition Notes Initial or Follow up Reassessment Current Diagnosis Small Bowel Obstruction Other Pertinent Diagnosis Pelvic abscess, (R) hemicolectomy, (L) pneumothorax Current Diet TPN at 83.33ml/hr Labs/Tests 03/31: Cl 97.1, BUN 23, Glu 117. Pertinent Medications Reviewed Height 5 ft 6 in Weight 62.8 kg [place] Body Weight (kg) 64.54 BMI 22.3 Weight change and time frame Body weight to be verified tomorrow. Weight Status Appropriate Subjective/Other Information Day 6 TPN. Percent of energy/protein needs met: 81.5% Kcal; 100% AA. Burn Absent Trauma Absent GI Symptoms Other Food Allergy No Current % PO Other Minimum of two criteria No #1 Nutrition Diagnosis Altered GI function Diagnosis Progress(for reassessment Continues documentation) Is patient on ventilator? No Is Patient Ambulatory and/or Out of Bed Yes REE-([facility]-ambulatory/OOB) [ 1950.975 NUTR.MSJOOB] Calculation Used for Recommendations [facility] Additional Notes Pro needs 1.25-1.5g/k- 101g/day Fluid needs 1ml/kcal, or as per MD. Nutrition Intervention Nutrition Support: Continue TPN at 83.33ml/hr: MVI, 50mEq K. Osmolality: 1575. Kcal 1,590 Protein (gm) 100 Carbohydrates (gm) 350 Fat (gm) 0 Fluid (mL) 2,000 % RDI: 81.5% Kcal; 100% AA. Goal #1 TPN to meet at least 75% energy and pro needs Follow-Up By: 04/01/21 Additional Comments Labs in am: BMP, Mg, Phos.
--- NOTE | 2021-04-01 17:08 | Progress Note ---
Assessment and Plan - Patient Problems (1) SBO (small bowel obstruction) Current Visit: Yes Status: Acute Plan to address problem: 1) FLD Subjective Date of service: 04/01/21 Patient Reports: Positive: no new complaints, flatus Objective Vital Signs - 12hr 04/01/21 08:26 Temperature 97.8 F Pulse Rate 88 Respiratory 20 Rate Blood Pressure 128/79 O2 Sat by Pulse 100 Oximetry - Abdomen [id number] 4, PM_46_[id number] 6, PM_46_EXABD1 8 Hernia: none - Labs 04/01/21 05:16 04/01/21 09:42 Diabetes panel 04/01/21 Range/Units 09:42 Sodium 132 L (137-145) mmol/L Potassium 4.3 (3.6-5.0) mmol/L Chloride 93.7 L (98-107) mmol/L Carbon Dioxide 27 (22-30) mmol/L BUN 19 (9-20) mg/dL Creatinine 0.7 L (0.8-1.3) mg/dL Glucose 100 (75-100) mg/dL Calcium 9.6 (8.4-10.2) mg/dL Calcium panel 04/01/21 Range/Units 09:42 Calcium 9.6 (8.4-10.2) mg/dL Phosphorus 3.40 D (2.5-4.5) mg/dL Pituitary panel 04/01/21 Range/Units 09:42 Sodium 132 L (137-145) mmol/L Potassium 4.3 (3.6-5.0) mmol/L Chloride 93.7 L (98-107) mmol/L Carbon Dioxide 27 (22-30) mmol/L BUN 19 (9-20) mg/dL Creatinine 0.7 L (0.8-1.3) mg/dL Glucose 100 (75-100) mg/dL Calcium 9.6 (8.4-10.2) mg/dL Adrenal panel 04/01/21 Range/Units 09:42 Sodium 132 L (137-145) mmol/L Potassium 4.3 (3.6-5.0) mmol/L Chloride 93.7 L (98-107) mmol/L Carbon Dioxide 27 (22-30) mmol/L BUN 19 (9-20) mg/dL Creatinine 0.7 L (0.8-1.3) mg/dL Glucose 100 (75-100) mg/dL Calcium 9.6 (8.4-10.2) mg/dL
[2021-04-01] MEDS ORDERED: TOTAL PARENTERAL NUTRITION 2,000 ML IV SCH (20:00)
[2021-04-01] MEDS: oxyCODONE /ACETAMINOPHEN 5-325MG TAB PO PRN (20:27)
[2021-04-02] MEDS: HYDROmorphone 1 MG/1 ML INJ IV PRN ×2 (00:42→04:57)
[2021-04-02] MEDS: SODIUM HYPOCHLORITE, DAKIN'S FULL STRENGTH (0.5%) 473 ML TOPICAL SOLN TP SCH ×2 (04:56→17:46)
[2021-04-02] MEDS: oxyCODONE /ACETAMINOPHEN 5-325MG TAB PO PRN ×5 (08:41→21:50)
[2021-04-02 10:35] LABS: Blood Urea Nitrogen 17 mg/dL (9-20); Calcium 9.5 mg/dL (8.4-10.2); Hemolysis Index 2
[2021-04-02 10:40] LABS: BUN/Creatinine Ratio 24
[2021-04-02] MEDS: HEPARIN 5,000 UNIT/1 ML VIAL SUB-Q SCH ×2 (11:37→21:26)
[2021-04-02] MEDS: FAMOTIDINE 20 MG/2 ML INJ IV SCH ×2 (11:37→21:26)
--- NOTE | 2021-04-02 12:11 | Progress Note ---
Assessment and Plan Assessment and plan: High-grade severe small bowel obstruction with leukocytosis and low-grade fever at presentation Patient had the first episode about 3 months ago Patient did not seek medical attention, symptoms resolved after 4 days No known past medical or surgical history Hyponatremia likely from vomiting, resolved Laparotomy on 03/18 revealed pelvic abscess possibly from a ruptured appendix, IBD, awaiting histopathology report Surgical cultures growing E. coli sensitive to ceftriaxone, Levaquin and Zosyn Status post right hemicolectomy and ileocolic end-to-end anastomosis Leukocytosis resolving but low grade fever persists. Blood cultures negative, CXR shows atelectasis which could be causing the fever. Left pneumothorax with central line placement, s/p chest tube placement, pneumothorax improved but not resolved yet. Plan: Remains stable postoperatively, general surgery following closely Low-grade fever with pelvic abscess, infected cyst CXR, needs aggressive incentive spirometry No output from left chest tube Continue n.p.o. until bowel function returns Continue Zosyn empirically Continue IV fluids Continue NG suction Monitor WBC, electrolytes and renal function Pain medication and antiemetic as needed. Discussed with the patient, nursing staff 03/23: Continue supportive care. Continue wound management. Chest tube management per surgery. Pain control. Discussed with nursing staff at bedside 03/24: KUB still shows persistent ileus. Dietitian consulted for TPN initiation. Continue supportive care we will downgrade to telemetry 03/25: Patient seen and examined this morning had some increased output from the NG tube that was more dark in concentration hemoglobin remained stable but concerning that there may be some coffee-ground emesis. Will monitor H&H this afternoon to see if there is any further drop. Will await surgical reevaluation. I will hold heparin for now. Chest tube remains in place. Wound care management discussed with nursing staff. Continue pain control 03/26: Patient seen and examined, resting comfortable, Continue supportive care, further management by Surgery. Will restart heparin in am if clinically stable. Replace K 03/27: Patient seen and examined, supportive care, continue current surgical recommendation. Monitor H/H 03/28/21 Patient is seen and examined. Patient is speaking but denies any nausea no vomiting. Patient is on NG suction. Chest x-ray showed left basilar opacity. No discrete pneumothorax. No sizable pleural effusion. X-ray of the abdomen shows mildly dilated loops of small bowel again seen throughout the abdomen unchanged. Continue current management. N.p.o. NG tube to low intermittent suction. Out of bed to chair and ambulate. Surgery follow-up. Recheck CBC BMP in the morning. 03/29: Continue pain control. Out of bed to chair as recommended. Continue NG tube until cleared by surgery for removal based on output. Plan discussed with the patient he verbalized understanding. 03/30: Continue supportive care. Pain control still a 6/10 in intensity patient states worse when he wears out. Counseling provided discussed with nursing staff. Continue TPN and NG tube to low cleared by surgery. 03/31: Patient seen and examined, NGT to be removed today, sips of water per ludivina diaz, repeat labs in am. 04/01: Patient seen and examined NG tube has been discontinued. He is to lerating sips of water. He says that he did have a bowel movement yesterday. Will await further recommendations by surgical team. 04/02: G-tube continues to be out of. Patient tolerating sips of water but still with pain wound intact no overt drainage noted. Patient continues on TPN until weaned off. Will defer adjustment of pain medication to surgeon considering complexity of surgery. History Interval history: Patient seen and examined today no new complaints. Doing well tolerating sips of water although still reports pain. Hospitalist Physical - Physical exam Narrative exam: General appearance: Present: no acute distress, other (Alert and oriented, looks comfortable) - EENT Eyes: Present: PERRL, EOM intact ENT: clear oral mucosa, other - Neck Neck: Present: supple - Respiratory Respiratory effort: normal Respiratory: bilateral: diminished bilaterally - Cardiovascular Rhythm: regular - Extremities Extremities: No edema - Abdominal General gastrointestinal: soft, non-tender, non-distended, absent bowel sounds, other (Dressings over surgical incision in place) - Integumentary Integumentary: Absent: jaundice, rash - Psychiatric Psychiatric: appropriate mood/affect - Neurologic Neurologic: no focal deficits - Constitutional Vitals: Temp Pulse Resp BP Pulse Ox 98.2 F 85 18 123/73 100 04/02/21 07:56 04/02/21 07:56 04/02/21 07:56 04/02/21 07:56 04/02/21 07:56 General appearance: Present: no acute distress, other (Alert and oriented, looks comfortable) Results - Labs CBC & Chem 7: 04/01/21 05:16 04/02/21 09:28 Labs: Laboratory Last Values WBC 6.6 K/mm3 (4.5-11.0) 04/01/21 05:16 RBC 3.14 M/mm3 (3.65-5.03) L 04/01/21 05:16 Hgb 10.4 gm/dl (11.8-15.2) L 04/01/21 05:16 Hct 31.4 % (35.5-45.6) L 04/01/21 05:16 MCV 100 fl (84-94) H 04/01/21 05:16 MCH 33 pg (28-32) H 04/01/21 05:16 MCHC 33 % (32-34) 04/01/21 05:16 RDW 13.3 % (13.2-15.2) 04/01/21 05:16 Plt Count 534 K/mm3 (140-440) H 04/01/21 05:16 Lymph % (Auto) 25.9 % (13.4-35.0) 04/01/21 05:16 [place] % (Auto) 10.7 % (0.0-7.3) H 04/01/21 05:16 Eos % (Auto) 3.1 % (0.0-4.3) 04/01/21 05:16 Baso % (Auto) 0.8 % (0.0-1.8) 04/01/21 05:16 Lymph # (Auto) 1.7 K/mm3 (1.2-5.4) 04/01/21 05:16 [place] # (Auto) 0.7 K/mm3 (0.0-0.8) 04/01/21 05:16 Eos # (Auto) 0.2 K/mm3 (0.0-0.4) 04/01/21 05:16 Baso # (Auto) 0.1 K/mm3 (0.0-0.1) 04/01/21 05:16 Seg Neutrophils % 59.5 % (40.0-70.0) 04/01/21 05:16 Seg Neutrophils # 3.9 K/mm3 (1.8-7.7) 04/01/21 05:16 Sodium 135 mmol/L (137-145) L 04/02/21 09:28 Potassium 4.2 mmol/L (3.6-5.0) 04/02/21 09:28 Chloride 95.9 mmol/L (98-107) L 04/02/21 09:28 Carbon Dioxide 26 mmol/L (22-30) 04/02/21 09:28 Anion Gap 17 mmol/L 04/02/21 09:28 BUN 17 mg/dL (9-20) 04/02/21 09:28 Creatinine 0.7 mg/dL (0.8-1.3) L 04/02/21 09:28 Estimated GFR > 60 ml/min 04/02/21 09:28 BUN/Creatinine Ratio 24 % 04/02/21 09:28 Glucose 93 mg/dL (75-100) 04/02/21 09:28 POC Glucose 91 mg/dL (70-105) 04/02/21 11:45 Calcium 9.5 mg/dL (8.4-10.2) 04/02/21 09:28 Phosphorus 3.50 mg/dL (2.5-4.5) 04/02/21 09:28 Magnesium 1.80 mg/dL (1.7-2.3) 04/02/21 09:28 Total Bilirubin 0.20 mg/dL (0.1-1.2) 03/26/21 04:26 Direct Bilirubin < 0.2 mg/dL (0-0.2) 03/25/21 11:48 Indirect Bilirubin 0.0 mg/dL 03/25/21 11:48 AST 25 units/L (5-40) 03/26/21 04:26 ALT 24 units/L (7-56) 03/26/21 04:26 Alkaline Phosphatase 105 units/L (35-129) 03/26/21 04:26 Total Protein 5.7 g/dL (6.3-8.2) L 03/26/21 04:26 Albumin 2.3 g/dL (3.9-5) L 03/26/21 04:26 Albumin/Globulin Ratio 0.7 % 03/26/21 04:26 Triglycerides 58 mg/dL (2-149) 04/02/21 09:28 Lipase 262 units/L (13-60) H 03/17/21 14:09 Urine Color Yellow (Yellow) 03/18/21 Unknown Urine Turbidity Clear (Clear) 03/18/21 Unknown Urine pH 5.0 (5.0-7.0) 03/18/21 Unknown Ur Specific [place] 1.019 (1.003-1.030) 03/18/21 Unknown Urine Protein 30 mg/dl mg/dL (Negative) 03/18/21 Unknown Urine Glucose (UA) Neg mg/dL (Negative) 03/18/21 Unknown Urine Ketones 20 mg/dL (Negative) 03/18/21 Unknown Urine Blood Neg (Negative) 03/18/21 Unknown Urine Nitrite Neg (Negative) 03/18/21 Unknown Urine Bilirubin Neg (Negative) 03/18/21 Unknown Urine Urobilinogen 2.0 mg/dL (<2.0) 03/18/21 Unknown Ur Leukocyte Esterase Neg (Negative) 03/18/21 Unknown Urine WBC (Auto) 3.0 /HPF (0.0-6.0) 03/18/21 Unknown Urine RBC (Auto) 2.0 /HPF (0.0-6.0) 03/18/21 Unknown Urine Mucus Few /HPF 03/18/21 Unknown Coronavirus (PCR) Negative (Negative) 03/19/21 Unknown [place]/IV: Voiding Method Urinal Active Medications - Current Medications Current Medications: Generic Name Dose Route Start Last Admin Trade Name Freq PRN Reason Stop Dose Admin Acetaminophen 650 mg 03/17/21 22:33 Acetaminophen 325 Mg Tab PO Q4H PRN Pain MILD(1-3)/Fever >100.5/CHRISTIANSEN Acetaminophen 650 mg 03/17/21 22:41 03/22/21 22:20 Acetaminophen 650 Mg Rect Supp [place] 650 mg Q4H PRN Administration Pain MILD(1-3)/Fever >100.5/CHRISTIANSEN Famotidine 20 mg 03/17/21 23:00 04/02/21 11:37 Famotidine 20 Mg/2 Ml Inj IV 20 mg BID PRASHANT Administration Heparin Sodium (Porcine) 5,000 unit 03/18/21 10:00 04/02/21 11:37 Heparin 5,000 Unit/1 Ml Vial SUB-Q 5,000 unit Q12HR PRASHANT Administration Hydromorphone HCl 0.5 mg 03/17/21 22:41 04/02/21 04:57 Hydromorphone 1 Mg/1 Ml Inj IV 0.5 mg Q3H PRN Administration Pain , Severe (7-10) Amino Acids/Electrolytes/Dextrose 2,000 mls @ 83.33 mls/hr 04/01/21 20:00 20:27 Tpn Adult IV 04/02/21 19:59 83.33 mls/hr DAILY@2000 PRASHANT Administration Protocol Morphine Sulfate 2 mg 03/17/21 22:41 03/24/21 15:42 Morphine 2 Mg/1 Ml Inj IV 2 mg Q4H PRN Administration Pain, Moderate (4-6) Ondansetron HCl 4 mg 03/27/21 14:22 Ondansetron 4 Mg/2 Ml Inj IV Q6H PRN Nausea And Vomiting Oxycodone/Acetaminophen 1 tab 04/01/21 18:37 04/02/21 11:49 Oxycodone /Acetaminophen 5-325mg Tab PO 1 tab Q4H PRN Administration Pain, Moderate (4-6) Phenol 1 spray 03/25/21 11:29 03/26/21 00:41 Phenol 1.4% 177 Ml Bottle MM 1 spray PRN PRN Administration Sore Throat Sodium Chloride 10 ml 03/17/21 22:33 03/28/21 21:39 Sodium Chloride 0.9% 10 Ml Flush Syringe IV 10 ml PRN PRN Administration LINE FLUSH Sodium Chloride 10 ml 03/18/21 10:00 04/01/21 21:39 Sodium Chloride 0.9% 10 Ml Flush Syringe IV 10 ml BID PRASHANT Administration Sodium Hypochlorite 1 applic 03/23/21 17:00 04/02/21 04:56 Sodium Hypochlorite, Dakin's Full Strength (0.5%) 473 Ml Topical Soln TP 1 applicatio Q12H PRASHANT Administration Nutrition/Malnutrition Assess - Dietary Evaluation Nutrition/Malnutrition Findings: Nutrition Notes Start: 03/19/21 11:28 Freq: Status: Active Protocol: Document 04/01/21 10:27 CHANCE (Rec: 04/01/21 12:15 CHANCE [id number]) Nutrition Notes Initial or Follow up Reassessment Current Diagnosis Small Bowel Obstruction Other Pertinent Diagnosis Pelvic abscess, (R) hemicolectomy, (L) pneumothorax Current Diet TPN at 83.33ml/hr Labs/Tests 04/01: Na 132, Cl 93.7, Crea 0 .7. Pertinent Medications Reviewed Height 5 ft 6 in Weight 65.2 kg [place] Body Weight (kg) 64.54 BMI 23.1 Weight Status Appropriate Subjective/Other Information Day 7 TPN. Percent of energy/protein needs met: 81.5% Kcal; 100% AA. Burn Absent Trauma Absent GI Symptoms Other Food Allergy No Current % PO Other Minimum of two criteria No #1 Nutrition Diagnosis Altered GI function Diagnosis Progress(for reassessment Continues documentation) Is patient on ventilator? No Is Patient Ambulatory and/or Out of Bed Yes REE-([facility]-ambulatory/OOB) [ 1982.175 NUTR.MSJOOB] Calculation Used for Recommendations [facility] Additional Notes Pro needs 1.25-1.5g/k- 101g/day Fluid needs 1ml/kcal, or as per MD. Nutrition Intervention Nutrition Support: Continue TPN at 83.33ml/hr: MVI, 50mEq K. Osmolality: 1590. Kcal 1,590 Protein (gm) 100 Carbohydrates (gm) 350 Fat (gm) 0 Fluid (mL) 2,000 % RDI: 81.5% Kcal; 100% AA. Goal #1 TPN to meet at least 75% energy and pro needs Follow-Up By: 04/02/21 Additional Comments Labs in am: BMP, Mg, Phos, and TG.
--- NOTE | 2021-04-02 14:46 | Progress Note ---
Assessment and Plan - Patient Problems (1) SBO (small bowel obstruction) Current Visit: Yes Status: Acute Plan to address problem: 1) Pelvic drain was removed. 2) Pt can be discharged from a surgical perspective. 3) F/u in [facility] in 2 weeks. 4) No lifting or straining 5) Regular diet 6) Pt may shower in 48 hours. 7) Rx - Narcotic of choice 8) Wet to dry dressing changes bid with 0.5% Dakin's solution and Kerlix gauze Subjective Date of service: 04/02/21 Patient Reports: Positive: no new complaints, flatus, bowel movement (Tolerating FLD.) Objective Vital Signs - 12hr 04/02/21 04/02/21 03:35 07:56 Temperature 99.0 F 98.2 F Pulse Rate 81 85 Respiratory 16 18 Rate Blood Pressure 117/77 123/73 O2 Sat by Pulse 100 100 Oximetry - Abdomen PM_46_EXABD1 4, PM_46_EXABD1 6, PM_46_EXABD1 8 Hernia: none - Labs 04/01/21 05:16 04/02/21 09:28 Diabetes panel 04/02/21 Range/Units 09:28 Sodium 135 L (137-145) mmol/L Potassium 4.2 (3.6-5.0) mmol/L Chloride 95.9 L (98-107) mmol/L Carbon Dioxide 26 (22-30) mmol/L BUN 17 (9-20) mg/dL Creatinine 0.7 L (0.8-1.3) mg/dL Glucose 93 (75-100) mg/dL Calcium 9.5 (8.4-10.2) mg/dL Triglycerides 58 (2-149) mg/dL Calcium panel 04/02/21 Range/Units 09:28 Calcium 9.5 (8.4-10.2) mg/dL Phosphorus 3.50 (2.5-4.5) mg/dL Pituitary panel 04/02/21 Range/Units 09:28 Sodium 135 L (137-145) mmol/L Potassium 4.2 (3.6-5.0) mmol/L Chloride 95.9 L (98-107) mmol/L Carbon Dioxide 26 (22-30) mmol/L BUN 17 (9-20) mg/dL Creatinine 0.7 L (0.8-1.3) mg/dL Glucose 93 (75-100) mg/dL Calcium 9.5 (8.4-10.2) mg/dL Adrenal panel 04/02/21 Range/Units 09:28 Sodium 135 L (137-145) mmol/L Potassium 4.2 (3.6-5.0) mmol/L Chloride 95.9 L (98-107) mmol/L Carbon Dioxide 26 (22-30) mmol/L BUN 17 (9-20) mg/dL Creatinine 0.7 L (0.8-1.3) mg/dL Glucose 93 (75-100) mg/dL Calcium 9.5 (8.4-10.2) mg/dL
[2021-04-02] MEDS ORDERED: TOTAL PARENTERAL NUTRITION 2,000 ML IV SCH (20:00)
[2021-04-02] MEDS ORDERED: FAT EMULSIONS 20% 250 ML IV SCH (20:00)
[2021-04-03] MEDS: oxyCODONE /ACETAMINOPHEN 5-325MG TAB PO PRN ×4 (04:55→21:12)
[2021-04-03] MEDS: SODIUM HYPOCHLORITE, DAKIN'S FULL STRENGTH (0.5%) 473 ML TOPICAL SOLN TP SCH ×2 (04:56→17:00)
[2021-04-03 06:39] LABS: BUN/Creatinine Ratio 20; Blood Urea Nitrogen 16 mg/dL (9-20); Calcium 9.5 mg/dL (8.4-10.2); Hemolysis Index 11
[2021-04-03] MEDS: FAMOTIDINE 20 MG/2 ML INJ IV SCH ×2 (10:25→21:13)
[2021-04-03] MEDS: HEPARIN 5,000 UNIT/1 ML VIAL SUB-Q SCH ×2 (10:25→21:13)
[2021-04-03] MEDS: HYDROmorphone 1 MG/1 ML INJ IV PRN (10:27)
[2021-04-03] MEDS: ACETAMINOPHEN 325 MG TAB PO PRN ×2 (11:09→17:12)
--- NOTE | 2021-04-03 12:39 | Progress Note ---
Subjective Date of service: 04/03/21 Principal diagnosis: Small bowel obstruction and pelvic abscess Interval history: High-grade severe small bowel obstruction with leukocytosis and low-grade fever at presentation Patient had the first episode about 3 months ago Patient did not seek medical attention, symptoms resolved after 4 days No known past medical or surgical history Hyponatremia likely from vomiting, resolved Laparotomy on 03/18 revealed pelvic abscess possibly from a ruptured appendix, IBD, awaiting histopathology report Surgical cultures growing E. coli sensitive to ceftriaxone, Levaquin and Zosyn Status post right hemicolectomy and ileocolic end-to-end anastomosis Leukocytosis resolving but low grade fever persists. Blood cultures negative, CXR shows atelectasis which could be causing the fever. Left pneumothorax with central line placement, s/p chest tube placement, pn eumothorax improved but not resolved yet. Plan: Remains stable postoperatively, general surgery following closely Low-grade fever with pelvic abscess, infected cyst CXR, needs aggressive incentive spirometry No output from left chest tube Continue n.p.o. until bowel function returns Continue Zosyn empirically Continue IV fluids Continue NG suction Monitor WBC, electrolytes and renal function Pain medication and antiemetic as needed. Discussed with the patient, nursing staff 03/23: Continue supportive care. Continue wound management. Chest tube management per surgery. Pain control. Discussed with nursing staff at bedside 03/24: KUB still shows persistent ileus. Dietitian consulted for TPN initiation. Continue supportive care we will downgrade to telemetry 03/25: Patient seen and examined this morning had some increased output from the NG tube that was more dark in concentration hemoglobin remained stable but concerning that there may be some coffee-ground emesis. Will monitor H&H this afternoon to see if there is any further drop. Will await surgical reevaluation. I will hold heparin for now. Chest tube remains in place. Wound care management discussed with nursing staff. Continue pain control 03/26: Patient seen and examined, resting comfortable, Continue supportive care, further management by Surgery. Will restart heparin in am if clinically stable. Replace K 03/27: Patient seen and examined, supportive care, continue current surgical recommendation. Monitor H/H 03/28/21 Patient is seen and examined. Patient is speaking but denies any nausea no vomiting. Patient is on NG suction. Chest x-ray showed left basilar opacity. No discrete pneumothorax. No sizable pleural effusion. X-ray of the abdomen shows mildly dilated loops of small bowel again seen throughout the abdomen unchanged. Continue current management. N.p.o. NG tube to low intermittent suction. Out of bed to chair and ambulate. Surgery follow-up. Recheck CBC BMP in the morning. 03/29: Continue pain control. Out of bed to chair as recommended. Continue NG tube until cleared by surgery for removal based on output. Plan discussed with the patient he verbalized understanding. 03/30: Continue supportive care. Pain control still a 6/10 in intensity patient states worse when he wears out. Counseling provided discussed with nursing staff. Continue TPN and NG tube to low cleared by surgery. 03/31: Patient seen and examined, NGT to be removed today, sips of water per surgery, repeat labs in am. 04/01: Patient seen and examined NG tube has been discontinued. He is tolerating sips of water. He says that he did have a bowel movement yesterday. Will await further recommendations by surgical team. 04/02: G-tube continues to be out of. Patient tolerating sips of water but still with pain wound intact no overt drainage noted. Patient continues on TPN until weaned off. Will defer adjustment of pain medication to surgeon considering complexity of surgery. 04/03 patient is alert and oriented, complains of severe abdominal pain and states he is unable to eat because of abdominal pain. He denies any nausea or vomiting or diarrhea. Denies fever or chills . Lab results reviewed. General surgery note reviewed and was cleared for discharge Assessment Status post high-grade small bowel obstruction Status post surgery General surgery note reviewed Patient is on TPN and also started on oral feeds However patient states that he is not eating much due to pain Pain control Patient was cleared for discharge by general surgery He needs outpatient follow-up with wound clinic and general surgery in 2 weeks He is not on any antibiotic at this time Normocytic anemia H&H stable No overt bleed Discussed with patient regarding going home He states the pain is bad and states he cannot go home now Objective - Constitutional Vitals: Vital Signs - 12hr 04/03/21 04/03/21 04/03/21 04:04 07:35 08:00 Temperature 98.6 F 98.2 F Pulse Rate 90 86 Respiratory 18 18 12 Rate Blood Pressure 129/77 129/76 O2 Sat by Pulse 99 99 98 Oximetry 11/20/21 11/20/21 10:25 10:27 Temperature Pulse Rate Respiratory 29 H 29 H Rate Blood Pressure O2 Sat by Pulse Oximetry General appearance: Present: no acute distress - EENT Eyes: PERRL, EOM intact ENT: hearing intact, clear oral mucosa - Neck Neck: supple, normal ROM - Respiratory Respiratory effort: normal Respiratory: bilateral: CTA, diminished - Cardiovascular Rhythm: regular Heart Sounds: Present: S1 & S2 Extremities: No edema - Gastrointestinal General gastrointestinal: Present: soft, tender Rectal Exam: deferred - Integumentary Integumentary: clear - Neurologic Neurologic: no focal deficits, moves all extremities - Psychiatric Psychiatric: appropriate mood/affect - Labs CBC & Chem 7: 04/01/21 05:16 04/03/21 05:28 Labs: Abnormal lab results 04/03/21 04/03/21 Range/Units 05:28 05:50 Sodium 135 L (137-145) mmol/L POC Glucose 116 H (70-105) mg/dL
[2021-04-03] MEDS: MORPHINE 2 MG/1 ML INJ IV PRN ×3 (12:57→23:50)
[2021-04-04] MEDS: oxyCODONE /ACETAMINOPHEN 5-325MG TAB PO PRN ×2 (01:05→12:09)
[2021-04-04] MEDS: MORPHINE 2 MG/1 ML INJ IV PRN (04:08)
[2021-04-04] MEDS: SODIUM HYPOCHLORITE, DAKIN'S FULL STRENGTH (0.5%) 473 ML TOPICAL SOLN TP SCH (04:09)
[2021-04-04] MEDS: HYDROmorphone 1 MG/1 ML INJ IV PRN ×2 (04:29→09:52)
[2021-04-04] MEDS: HEPARIN 5,000 UNIT/1 ML VIAL SUB-Q SCH (09:51)
[2021-04-04] MEDS: FAMOTIDINE 20 MG/2 ML INJ IV SCH (09:52)
--- NOTE | 2021-04-04 11:40 | Discharge Summary ---
Providers - Providers Date of Admission: 03/17/21 14:57 Date of discharge: 04/04/21 Attending physician: SOM GALDAMEZ 03/24/21 07:43 Physical Therapy Evaluation and Treat [CONS] Routine Comment: Reason For Exam: DEBILITY 03/24/21 16:23 Consult to Dietitian/Nutrition [CONS] Routine Physician Instructions: Reason For Exam: Reason for Consult: Write/Manage TPN/PPN Primary care physician: [employer]TE[employer] Hospitalization Condition: Stable Hospital course: High-grade severe small bowel obstruction with leukocytosis and low-grade fever at presentation Patient had the first episode about 3 months ago Patient did not seek medical attention, symptoms resolved after 4 days No known past medical or surgical history Hyponatremia likely from vomiting, resolved Laparotomy on 03/18 revealed pelvic abscess possibly from a ruptured appendix, IBD, awaiting histopathology report Surgical cultures growing E. coli sensitive to ceftriaxone, Levaquin and Zosyn Status post right hemicolectomy and ileocolic end-to-end anastomosis Leukocytosis resolving but low grade fever persists. Blood cultures negative, CXR shows atelectasis which could be causing the fever. Left pneumothorax with central line placement, s/p chest tube placement, pneumothorax improved but not resolved yet. 03/23: Continue supportive care. Continue wound management. Chest tube management per surgery. Pain control. Discussed with nursing staff at bedside 03/24: KUB still shows persistent ileus. Dietitian consulted for TPN initiation. Continue supportive care we will downgrade to telemetry 03/25: Patient seen and examined this morning had some increased output from the NG tube that was more dark in concentration hemoglobin remained stable but conc erning that there may be some coffee-ground emesis. Will monitor H&H this afternoon to see if there is any further drop. Will await surgical reevaluation. I will hold heparin for now. Chest tube remains in place. Wound care management discussed with nursing staff. Continue pain control 03/26: Patient seen and examined, resting comfortable, Continue supportive care, further management by Surgery. Will restart heparin in am if clinically stable. Replace K 03/27: Patient seen and examined, supportive care, continue current surgical recommendation. Monitor H/H 03/28/21 Patient is seen and examined. Patient is speaking but denies any nausea no vomiting. Patient is on NG suction. Chest x-ray showed left basilar opacity. No discrete pneumothorax. No sizable pleural effusion. X-ray of the abdomen shows mildly dilated loops of small bowel again seen throughout the abdomen unchanged. Continue current management. N.p.o. NG tube to low intermittent suction. Out of bed to chair and ambulate. Surgery follow-up. Recheck CBC BMP in the morning. 03/29: Continue pain control. Out of bed to chair as recommended. Continue NG tube until cleared by surgery for removal based on output. Plan discussed with the patient he verbalized understanding. 03/30: Continue supportive care. Pain control still a 6/10 in intensity patient states worse when he wears out. Counseling provided discussed with nursing staff. Continue TPN and NG tube to low cleared by surgery. 03/31: Patient seen and examined, NGT to be removed today, sips of water per surgery, repeat labs in am. 04/01: Patient seen and examined NG tube has been discontinued. He is tolerating sips of water. He says that he did have a bowel movement yesterday. Will await further recommendations by surgical team. 04/02: G-tube continues to be out of. Patient tolerating sips of water but still with pain wound intact no overt drainage noted. Patient continues on TPN until weaned off. Will defer adjustment of pain medication to surgeon considering complexity of surgery. 04/03 patient is alert and oriented, complains of severe abdominal pain and states he is unable to eat because of abdominal pain. He denies any nausea or vomiting or diarrhea. Denies fever or chills . Lab results reviewed. General surgery note reviewed and was cleared for discharge Assessment High-grade small bowel obstruction Status post surgery General surgery note reviewed Off TPN and is tolerating diet He continues to have some pain Pain control Patient was cleared for discharge by general surgery He states he is feeling a lot better today and is willing to go home He needs outpatient follow-up with wound clinic and general surgery in 2 weeks Completed IV antibiotic therapy Normocytic anemia H&H stable No overt bleed Disposition: 01 HOME / SELF CARE / HOMELESS Final Discharge Diagnosis (Prints w/discharge instructions): High-grade small bowel obstruction Time spent for discharge: 38 minutes Core Measure Documentation - Palliative Care Palliative Care/ Comfort Measures: Not Applicable - Core Measures Any of the following diagnoses?: none Exam - Constitutional Vitals: Temp Pulse Resp BP Pulse Ox 98.9 F 115 H 20 122/67 98 11/21/21 07:34 04/04/21 07:34 04/04/21 07:34 04/04/21 07:34 04/04/21 08:00 General appearance: Present: no acute distress - EENT Eyes: Present: PERRL, EOM intact ENT: hearing intact, clear oral mucosa - Neck Neck: Present: supple, normal ROM - Respiratory Respiratory effort: normal Respiratory: bilateral: CTA - Cardiovascular Rhythm: regular Heart Sounds: Present: S1 & S2 - Extremities Extremities: No edema - Abdominal General gastrointestinal: Present: soft, tender (Appropriately tender and has a dressing over the mid abdomen) Male genitourinary: Present: deferred - Rectal Rectal Exam: deferred - Integumentary Integumentary: Present: clear - Musculoskeletal Musculoskeletal: strength equal bilaterally - Psychiatric Psychiatric: appropriate mood/affect - Neurologic Neurologic: no focal deficits Plan Activity: advance as tolerated Weight Bearing Status: Weight Bear as Tolerated Diet: regular Additional Instructions: Please schedule follow-up with wound care center in 1 week Follow up with: CAIT GONZALES MD [Primary Care Provider] - 7 Days CHAKA COLON MD [Staff Physician] - 14 Days Prescriptions: Famotidine [Pepcid] 20 mg PO BID #30 tablet oxyCODONE /ACETAMINOPHEN [Percocet 5/325 mg] 1 tab PO Q6HR PRN #14 tablet PRN Reason: Pain, Moderate (4-6)
[2021-04-04 11:50] VITALS: BP 106/65
== END 2021-04-04 14:30 | disposition home health service (06) | DRG 329 ==
LOC: ED 13:28 → 3A 14:57 → IMCU 03-19 03:16 → 4A 03-24 16:12
PROVIDERS: ADMIT Internal Medicine; ATTEND Internal Medicine
PROC: 0DBF0ZZ Excision of Right Large Intestine, Open Approach (ICD-10-PCS; principal; 2021-03-19)
PROC: 0W9J0ZZ Drainage of Pelvic Cavity, Open Approach (ICD-10-PCS; 2021-03-19)
PROC: 0W9B30Z Drainage of Left Pleural Cavity with Drainage Device, Percutaneous Approach (ICD-10-PCS; 2021-03-19)
DX: K56.609 Unspecified intestinal obstruction, unspecified as to partial versus complete obstruction (principal); K65.1 Peritoneal abscess; R65.10 Systemic inflammatory response syndrome (SIRS) of non-infectious origin without acute organ dysfunction; E87.1 Hypo-osmolality and hyponatremia; K58.8 Other irritable bowel syndrome; Z20.822 Contact with and (suspected) exposure to COVID-19
CPT/HCPCS: 36415; 71045; 74018; 74019; 74022; 74177; 74248; 80048; 80053; 80076; 81001; 82962; 83690; 83735; 84100; 84478; 85014; 85018; 85025; 85027; 87040; 87075; 87076; 87116; 87186; 88307; 94644; 94760; G0378; J3490; J0696; J1170; J1644; J2250; J2270; J2370; J2405; J2543; J2704; J2765; J3010; J3230; J3480; J7030; J7042; J7120; Q9963; Q9967; U0003